=== PATIENT | female | born 1950 | race African-American/Black ===

== ENCOUNTER 2018-04-11 18:51 | Inpatient (IN) | payer OTHER, MEDICAID ==
[~2018-04-11] VITALS: Ht 162.6 cm; Wt 125.6 kg
[2018-04-11 18:55] VITALS: BP 145/82
--- NOTE | 2018-04-11 19:10 | NUR ---
PATIENT PRESENTS ER WITH C/O ABNORMAL LAB. PT WAS BIBA FROM [facility]. PT ABNORMAL LABS ARE CO2 41. PT IS A/O X 4. PT LUNG SOUNDS CLEAR BILATERAL. PT HAS SOME EXPIRATORY WHEEZING BY FORCE. PT HAS HX OF COPD, CHF, HTN, DM. PTHAS EDEMA BILATERAL +4. SKIN INTACT; PATIENT STATES PAIN OF 5/10 AT THIS TIME; VSS; PATIENT POSITIONED FOR COMFORT; HOB ELEVATED; BEDRAILS UP X2; BED DOWN. ER MD MADE AWARE OF PT STATUS.
--- NOTE | 2018-04-11 19:25 | NUR ---
LAB AT BEDSIDE
--- NOTE | 2018-04-11 19:37 | NUR ---
X-Ray at bedside.
[2018-04-11 19:40] LABS: BASOPHILS # (AUTO) 0.1 K/uL (0.00-0.22); BASOPHILS % (AUTO) 1.8 % (0.0-2.0); EOSINOPHILS # (AUTO) 0.4 K/uL (0-0.4); EOSINOPHILS % (AUTO) 6.9 % (0.0-4.0); HEMATOCRIT 25.4 % (36-48); HEMOGLOBIN 7.6 g/dL (12.0-16.0); LYMPHOCYTES # (AUTO) 0.8 K/uL (2.5-16.5); LYMPHOCYTES % (AUTO) 14.8 % (20.5-51.1); MEAN CORPUSCULAR HEMOGLOBIN 23 pg (27-31); MEAN CORPUSCULAR HGB CONC 30 g/dL (33-37); MEAN CORPUSCULAR VOLUME 77.2 fL (80-94); MONOCYTES # (AUTO) 0.6 K/uL (0.8-1.0); MONOCYTES % (AUTO) 10.6 % (1.7-9.3); NEUTROPHILS # (AUTO) 3.7 K/uL (1.8-7.7); NEUTROPHILS % (AUTO) 65.9 % (42.2-75.2); PLATELET COUNT (AUTO) 197 K/uL (140-450); RED BLOOD CELL COUNT(AUTO) 3.29 MIL/uL (4.20-5.40); RED CELL DISTRIBUTION WIDTH 18.9 % (11.6-13.7); WHITE BLOOD COUNT (AUTO) 5.5 K/uL (4.8-10.8)
[2018-04-11 19:56] LABS: ALBUMIN 3.2 g/dL (3.4-5.0); ANION GAP 0.2 (8-16); CREATININE 2.2 mg/dL (0.6-1.3); POTASSIUM 4.9 mmol/L (3.5-5.1); TOTAL BILIRUBIN 0.3 mg/dL (0.0-1.0)
[2018-04-11 19:59] LABS: PROTHROMBIN TIME 10.9 secs (10.8-13.4)
--- NOTE | 2018-04-11 20:00 | NUR ---
STRAIGHT CATH WAS DONE. PT TOLERATED WELL. U/A SPECIMEN WAS COLLECTED. SENT TO LAB.
[2018-04-11 20:04] LABS: CARBON DIOXIDE 41.7 mmol/L (21-32)
--- NOTE | 2018-04-11 20:10 | NUR ---
Dr. Gómez evaluating patient at bedside.
[2018-04-11] MEDS ORDERED: TRAM50TA1 PO (20:11)
[2018-04-11] MEDS ORDERED: MELA5TAB6 PO (20:11)
[2018-04-11] MEDS ORDERED: VITD1000 PO (20:11)
[2018-04-11] MEDS ORDERED: ROC.25 PO (20:11)
[2018-04-11] MEDS ORDERED: LACT1CAP92 PO (20:11)
[2018-04-11] MEDS ORDERED: MAGN400T55 PO (20:11)
[2018-04-11] MEDS ORDERED: CARV12.5 PO (20:11)
[2018-04-11] MEDS ORDERED: ASPI-1718 PO (20:11)
[2018-04-11] MEDS ORDERED: FURO-570 PO (20:11)
[2018-04-11] MEDS ORDERED: ALLO100T21 PO (20:11)
[2018-04-11] MEDS ORDERED: FERR325E14 PO (20:11)
[2018-04-11] MEDS ORDERED: [UNRECOGNIZED DRUG - CODE] PO (20:11)
[2018-04-11] MEDS ORDERED: SENN-72 PO (20:11)
[2018-04-11] MEDS ORDERED: ASCO500T45 PO (20:11)
[2018-04-11] MEDS ORDERED: DOCU-299 PO (20:11)
[2018-04-11] MEDS ORDERED: CRAN425C8 PO (20:11)
[2018-04-11] MEDS ORDERED: LANTUS SUBQ (20:11)
[2018-04-11] MEDS ORDERED: LIP80 PO (20:11)
[2018-04-11] MEDS ORDERED: KAY15 PO (20:13)
[2018-04-11] MEDS ORDERED: ALBUTEROL SULFATE/IPRATROPIU 3 ML SOL IH ONE (20:15)
--- NOTE | 2018-04-11 20:34 | NUR ---
Respiratory Therapist at bedside for respiratory intervention.
[2018-04-11] MEDS ORDERED: ACETAMINOPHEN 325 MG TAB PO PRN (20:40)
[2018-04-11] MEDS ORDERED: DOCUSATE SODIUM 100 MG GELCAP PO PRN (20:40)
[2018-04-11] MEDS ORDERED: NACL 0.9% 1,000 ML IV SCH (20:40)
[2018-04-11] MEDS ORDERED: MORPHINE SULFATE 2 MG/ML SYR IVP PRN (20:40)
[2018-04-11] MEDS ORDERED: ONDANSETRON 4 MG/2 ML VIAL IM/IVP PRN (20:40)
[2018-04-11 20:47] LABS: BILIRUBIN,URINE NEGATIVE (NEGATIVE); BLOOD, URINE TRACE-I (NEGATIVE); COLOR,URINE YELLOW (YELLOW); LEUKOCYTE ESTERASE ,URINE 1+ (NEGATIVE); NITRITE, URINE NEGATIVE (NEGATIVE); PH,URINE 6.5 (5.0-9.0); UGLUCOSE NEGATIVE (NEGATIVE)
[2018-04-11 20:48] LABS: APPEARANCE,URINE HAZY (CLEAR)
[2018-04-11 20:50] LABS: RBC,URINE 0-5 (RARE) /HPF (0-5); WBC,URINE 20-60 /HPF (0-5)
[2018-04-11 20:58] LABS: BARBITURATE, URINE NEG. ng/ml (NEG <=200); BENZODIAZEPINE, URINE NEG. ng/mL (NEG <=200); CANNABINOID, URINE NEG. ng/mL (NEG <=50); COCAINE, URINE NEG. ng/mL (NEG <=300); OPIATE, URINE NEG. ng/mL (NEG <=2000); PHENCYCLIDINE SCREEN,URINE NEG. ng/mL (NEG <=25)
[2018-04-11 21:13] LABS: CHOL/HDL RATIO 1.8 (1-4.5); THYROID STIMULATING HORMONE 6.56 uIU/mL (0.34-3.74)
--- NOTE | 2018-04-11 21:15 | NUR ---
Pt report given to CARLY DALEY. Transfer of care at this time.PT VSS
--- NOTE | 2018-04-11 21:15 | NUR ---
Patient will be admitted to care of DR. JAIME. Admited to TELEMETRY. Will go to room 120A. Belongings list completed. Report to EDI CARROLL. PT VSS.
--- NOTE | 2018-04-11 21:25 | NUR ---
SPOKE TO SON ISABELL TO LET HIM KNOW THAT MOM IS TRANSPORTED TO THE FLOOR AND TOLERATED IT WELL. PER PT REQUEST. CONTACT INFO IS ISABELL [phone]
[2018-04-11 21:30] VITALS: BP 144/72
--- NOTE | 2018-04-11 21:50 | NUR ---
RECEIVED PT FROM CARLY PAYROLL ACCOUNTING SPECIALIST PT AAOX4 ON BED REST ON 02 2 LTS VIA NC, ON LABORED BREATHING, HL ON LEFT AC PATENT, EDEMA ON BLE 3+ SKIN IS INTACT PT IS ORIENTED TO THE FLOOR CALL LIGHT WITHIN REACH
[2018-04-11] MEDS ORDERED: PIPERACILLIN/TAZOBACTAM 2.25 GM VIAL IV ONE (22:03)
--- NOTE | 2018-04-11 23:00 | NUR ---
AL MEDIC ORDER GIVEN ANTIBIOTICS NOT DISTRES NOTED ON TELEMETRY PACED
--- NOTE | 2018-04-11 23:12 | NUR ---
PT ON TELEMETRY PACED
[2018-04-11] MEDS: ALBUTEROL SULFATE/IPRATROPIU 3 ML SOL IH PRN (23:28)
[2018-04-12] VITALS: BP 140/70
[2018-04-12] MEDS: methylPREDNISolone SS 40 MG/ML VIAL IVP SCH ×4 (00:08→21:00)
--- NOTE | 2018-04-12 02:00 | NUR ---
PT IS ASSISTED TO BSC VOIDING WELL
[2018-04-12 04:00] VITALS: BP 146/93
--- NOTE | 2018-04-12 04:00 | NUR ---
SPONGE BATH GIVEN LINEN CHANGED VOIDING WELL ON TELEMETRY PACED NOT DISTRESS NOTED
[2018-04-12] MEDS ORDERED: methylPREDNISolone SS 40 MG/ML VIAL IVP SCH (05:00)
[2018-04-12] MEDS ORDERED: PIPER/TAZO 3.375GM/D5W PREMIX 50 ML IV SCH (05:00)
[2018-04-12] MEDS: PIPER/TAZO 2.25GM/D5W PREMIX 50 ML IV SCH ×3 (05:31→18:00)
[2018-04-12] MEDS ORDERED: PIPERACILLIN/TAZOBACTAM 2.25 GM VIAL IV ONE (05:38)
[2018-04-12] MEDS: BLOOD GLUCOSE MONITORING 1 DEV DEV FS SCH ×4 (06:06→21:19)
--- NOTE | 2018-04-12 06:14 | NUR ---
BLOOD SUGAR TEST 144 NOT COVERAGE. NOT SOB NOTED AT THIS TIME
[2018-04-12] MEDS: FAMOTIDINE 20 MG TAB PO SCH (06:17)
--- NOTE | 2018-04-12 07:20 | NUR ---
RECEIVED PT REPORT FROM GRAPHIC USER INTERFACE DESIGNER NURSE. PT IS AWAKE AND ALERT. NO S/S OF ACUTE DISTRESS OR SOB. PT IS ON 2L O2 NC. SKIN INTACT. IV SITE NOTED ON LAC, 20 G, INFUSING NS 60 ML/HR. FALL PRECAUTIONS IN PLACE. CALL LIGHT WITHIN REACH. WILL CONT TO MONITOR PT.
[2018-04-12 07:26] LABS: HEMATOCRIT 27.9 % (36-48); HEMOGLOBIN 8.3 g/dL (12.0-16.0); MEAN CORPUSCULAR HEMOGLOBIN 23 pg (27-31); MEAN CORPUSCULAR HGB CONC 30 g/dL (33-37); MEAN CORPUSCULAR VOLUME 77.8 fL (80-94); PLATELET COUNT (AUTO) 210 K/uL (140-450); RED BLOOD CELL COUNT(AUTO) 3.59 MIL/uL (4.20-5.40); RED CELL DISTRIBUTION WIDTH 19.3 % (11.6-13.7); WHITE BLOOD COUNT (AUTO) 5.7 K/uL (4.8-10.8)
[2018-04-12 08:00] VITALS: BP 147/83
--- NOTE | 2018-04-12 08:07 | NUR ---
PATIENT HAS BEEN SCREENED AND CATEGORIZED HIGH NUTRITION RISK. PATIENT WILL BE SEEN WITHIN 1-2 DAYS OF ADMISSION. 04/12/18-04/13/[address]
[2018-04-12 08:11] LABS: ANION GAP 7.2 (8-16); CREATININE 2.1 mg/dL (0.6-1.3); POTASSIUM 5.2 mmol/L (3.5-5.1)
[2018-04-12 08:28] LABS: LYMPHOCYTES % (MANUAL) 10 % (20-46); MONOCYTES % (MANUAL) 2 % (5-12)
--- NOTE | 2018-04-12 08:30 | NUR ---
DR GREENE AT BEDSIDE REVIEWED PATIENT STATUS AND BIPAP ORDER BY DR ALCIDES PANTOJA ON 04/12/2018 @ [address] DR GREENE STATED TO "CHANGE BIPAP TO NOCS"
--- NOTE | 2018-04-12 08:34 | NUR ---
PT WAS SEEN BY DR NICHOLSON AND DR JEWELL
[2018-04-12] MEDS: INSULIN LANTUS 100 UNITS/ML 10 ML VIAL SUBQ SCH (09:00)
[2018-04-12] MEDS ORDERED: FUROSEMIDE 40 MG TAB PO SCH (09:00)
[2018-04-12] MEDS: FUROSEMIDE 40 MG/4 ML VIAL IVP SCH ×2 (09:00→17:00)
--- NOTE | 2018-04-12 09:42 | NUR ---
PT REFUSED KIDNEY US. TECH WILL TRY AGAIN AT A LATER TIME
--- NOTE | 2018-04-12 09:46 | NUR ---
PT IS REFUSING TO TAKE HER AM MEDS, AND HAVE HER BLOOD SUGAR CHECKED. WILL TRY AGAIN LATER. PT WANTS TO BE LEFT ALONE TO SLEEP AT THIS TIME
--- NOTE | 2018-04-12 10:20 | NUR ---
TRIED TALKING TO PT AGAIN REGARDING TAKING HER MORNING MEDS AND CHECKING HER BLOOD SUGAR, SHE REFUSED AGAIN., STATED "I DON'T WANT ANY OF THIS". PT'S BP WAS ELEVATED, PT IS AWARE THAT SHE NEEDS TO TAKE HER BP MEDICATIONS. SHE ALSO HAS LANTUS 35 UNITS, BUT REFUSED TO HAVE HER BLOOD SUGAR CHECKED. NOTIFIED.
--- NOTE | 2018-04-12 10:45 | NUR ---
PT IS AGITATED AND SEEMS CONFUSED. SHE PULLED OUT HER IV AND TOOK OFF HER TELEMETRY LEADS, AND IS REFUSING TO HAVE THEM PUT BACK ON. SHE IS ASKING RN FOR A SODA. PT KNOWS SHE IS DIABETIC. NOTIFIED.
[2018-04-12 12:00] VITALS: BP 163/74
--- NOTE | 2018-04-12 12:46 | NUR ---
04/12/18 RD INITIAL ASSESSMENT COMPLETED PLEASE REFER TO NUTRITION ASSESSMENT UNDER CARE ACTIVITY FOR ESTIMATED NUTRITIONAL NEEDS. 1. RECOMMEND 60 GM CCHO + RENAL DIET 2. RD TO PROVIDE RENAL AND DM EDUCATION ON FOLLOW UP VISIT 3. RD TO FOLLOW-UP 3-5 DAYS, MODERATE RISK KHAI BRANTLEY, RD
--- NOTE | 2018-04-12 13:29 | NUR ---
PT IS STILL REFUSING TO TAKE HER MEDICATIONS FROM THIS MORNING AND AFTERNOON, AND TO HAVE HER BLOOD SUGAR CHECKED. PT'S BP IS ELEVATED AT THIS TIME, 163/74. SHE IS REFUSING TO TAKE ANY OF HER BP MEDS AND OTHER MEDS. DIRECTOR BARRAGAN TALKED TO PATIENT, PT WAS AGGRESSIVE TOWARD DIRECTOR, AGAIN REFUSING TO TAKE ANY MEDS, OR TO CHECK BLOOD SUGAR. PT IS REFUSING TO START A NEW IV SITE AFTER MULTIPLE TIMES OF TALKING TO HER. PT TELLING STAFF TO "GET OUT". DIRECTOR SPOKE WITH PT'S SON ISABELL TO NOTIFY HIM OF THIS ISSUE. IS AWARE.
[2018-04-12] MEDS: FERROUS SULFATE 325 MG TABEC PO SCH (13:45)
[2018-04-12] MEDS: LACTOBACILLUS RHAMNOSUS GG 1 EACH CAP PO SCH (13:45)
[2018-04-12] MEDS: CARVEDILOL 12.5 MG TAB PO SCH ×2 (13:45→17:35)
[2018-04-12] MEDS: ASPIRIN 81 MG TAB.CHEW PO SCH (13:45)
[2018-04-12] MEDS: ALLOPURINOL 100 MG TAB PO SCH (13:46)
[2018-04-12] MEDS: CALCITRIOL 0.25 MCG CAPLF PO SCH (13:46)
[2018-04-12] MEDS: traMADol 50 MG TAB PO SCH ×2 (13:46→21:14)
[2018-04-12] MEDS: ASCORBIC ACID 500 MG TAB PO SCH (13:46)
--- NOTE | 2018-04-12 13:46 | NUR ---
PT AGREED TO TAKE HER MORNING PO MEDICATIONS.
--- NOTE | 2018-04-12 14:17 | NUR ---
Pharmacy Teacher Note: Per Moshe from [facility] , patient is on a 7 day bed hold and is one of their long-term patients. She stated patient's health care decision maker is her son Isai Fagan .
[2018-04-12] MEDS: ALBUTEROL SULFATE/IPRATROPIU 3 ML SOL IH PRN (15:24)
--- NOTE | 2018-04-12 15:54 | NUR ---
PT REFUSED KIDNEY US FOR THE SECOND TIME.
[2018-04-12 16:00] VITALS: BP 148/84
--- NOTE | 2018-04-12 16:30 | NUR ---
JUST TALKED TO PT AGAIN ABOUT PLACING A NEW IV, SHE SAID SHE MIGHT BE OK WITH HAVING IT PLACED "AFTER DINNER". SHE IS REFUSING TO HAVE A NEW IV PLACED AT THIS TIME.
--- NOTE | 2018-04-12 16:45 | NUR ---
PT REFUSING TO HAVE BLOOD SUGAR TESTED
--- NOTE | 2018-04-12 16:53 | NUR ---
HEMOCCULT STOOL SAMPLE COLLECTED AND TAKEN TO LAB.
--- NOTE | 2018-04-12 18:18 | NUR ---
PT REFUSING TO HAVE IV PLACED. WILL TRY AGAIN LATER.
--- NOTE | 2018-04-12 19:10 | NUR ---
PT ENDORSED TO PHOTOGRAPHIC PROCESSOR IN STABLE CONDITION
[2018-04-12] MEDS: SENNA 8.6 MG TAB PO SCH (21:14)
[2018-04-12] MEDS: ATORVASTATIN 80 MG TAB PO SCH (21:14)
[2018-04-12] MEDS: INSULIN LISPRO SLIDING SCALE 100 UNITS/ML VIAL SUBQ PRN (21:22)
--- NOTE | 2018-04-12 22:10 | NUR ---
PT WAS INFORMED THAT SHE IS GIVEN SEN[place]OT. SHE ASKED FOR COLACE. INFORMED DR. PANTOJA. DR. AQUINO.
--- NOTE | 2018-04-12 22:11 | NUR ---
PT REFUSED TO HAVE IV ON HER. NO SOLUMEDROL WAS GIVEN
--- NOTE | 2018-04-12 22:25 | NUR ---
PLACED PT IN BIPAP, AND AFTER ONE MINUTE SHE REQUEST TO TAKE IT OFF, SHE SAID THAT SHE CAN NOT SLEEP WITH THIS MASK ON HER FACE.TOLD ME TO TURN ALL THE LIGHTS AND TV FOR HER TO SLEEP.RN NOTIFIED
--- NOTE | 2018-04-12 22:26 | NUR ---
PT REFUSED RT PLACING A BIPAP FOR CONTINUOUS ONE TONIGHT DR. PANTOJA AWARE.
--- NOTE | 2018-04-13 | NUR ---
ZOSYN NON-ADMINISTERED. DUE TO NO IVF PLACEMENT. PT WAS EXPLAINED THE BENEFITS AND RISKS. SHE ACKNOWLEDGED. 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
[2018-04-13] MEDS: methylPREDNISolone SS 40 MG/ML VIAL IVP SCH ×3 (05:00→20:34)
--- NOTE | 2018-04-13 05:00 | NUR ---
ISATU NON-ADMINISTERED TO PT REFUSAL. DR PANTOJA AWARE
[2018-04-13] MEDS: PIPER/TAZO 2.25GM/D5W PREMIX 50 ML IV SCH ×5 (06:00→23:53)
[2018-04-13 06:13] LABS: BASOPHILS % (AUTO) 0.6 % (0.0-2.0); EOSINOPHILS # (AUTO) 0.2 K/uL (0-0.4); EOSINOPHILS % (AUTO) 2.4 % (0.0-4.0); HEMATOCRIT 24.8 % (36-48); HEMOGLOBIN 7.4 g/dL (12.0-16.0); LYMPHOCYTES # (AUTO) 1.5 K/uL (2.5-16.5); LYMPHOCYTES % (AUTO) 23.9 % (20.5-51.1); MEAN CORPUSCULAR HEMOGLOBIN 23 pg (27-31); MEAN CORPUSCULAR HGB CONC 30 g/dL (33-37); MEAN CORPUSCULAR VOLUME 77.4 fL (80-94); MONOCYTES # (AUTO) 0.8 K/uL (0.8-1.0); NEUTROPHILS # (AUTO) 3.9 K/uL (1.8-7.7); NEUTROPHILS % (AUTO) 61.1 % (42.2-75.2); PLATELET COUNT (AUTO) 188 K/uL (140-450); RED BLOOD CELL COUNT(AUTO) 3.21 MIL/uL (4.20-5.40); RED CELL DISTRIBUTION WIDTH 19.3 % (11.6-13.7); WHITE BLOOD COUNT (AUTO) 6.4 K/uL (4.8-10.8)
[2018-04-13 06:14] LABS: T4 (THYROXINE) 5.3 ug/dL (4.5-12.0)
[2018-04-13] MEDS: BLOOD GLUCOSE MONITORING 1 DEV DEV FS SCH ×4 (06:28→20:35)
--- NOTE | 2018-04-13 06:29 | NUR ---
PT REFUSED BLOOD GLUCOSE MONITORING, AND TO TAKEN VITAL SIGNS. DR. PANTOJA AWARE
[2018-04-13] MEDS: FAMOTIDINE 20 MG TAB PO SCH (06:34)
--- NOTE | 2018-04-13 06:34 | NUR ---
PT REFUSED HER PEPCID, INFORMED DR. INGRAM. REITERATED AGAIN TO THAT PT REFUSES HER IVF, ANTIBIOTIC MEDS VIA IV(ZOSYN), SOLUMEDROL AND NO AM. BLOOD GLUCOSE WAS STAKEN DUE TO REFUSAL. PT IS A NURSE. INFORMED DE. THAT PT HAS WHEEZES JOAQUIN DURING ACTIVITY LIKE GETTING UP IN BED TO GO TO BEDSIDE COMMODE, OR SCOOTING IN BED, BREATHING HARD.
[2018-04-13] MEDS: INSULIN LISPRO SLIDING SCALE 100 UNITS/ML VIAL SUBQ PRN ×4 (06:47→20:47)
--- NOTE | 2018-04-13 06:47 | NUR ---
AT 2111 GAVE HUMALOG 15 UNITS TO PT. PT ABLE TO TAKE SOME OF THE INSULIN, BUT NOT ENTIRELY ITS CONTENTS AT PT ASKED ME TO STOP. SO I STOPPED GIVING THE INSULIN. WILL ENDORSE TO NEXT SHIFT. AT 06 I DOCUMENTED 15 UNITS AT TOTAL GIVEN TO PT WAS 15 UNITS. OF LAST NIGHT.WILL ENDORSE TO NEXT SHIFT, NOT TO GIVE CLOSE TO TIME.
--- NOTE | 2018-04-13 06:51 | NUR ---
PT WAS HUNGRY ATE SOME 12 PCS OF MEKHI CRACKERS.GOOD APPETITE
--- NOTE | 2018-04-13 07:19 | NUR ---
PT WITH UNSTABLE BLOOD SUGAR LEVELS; DR. TONG AWARE. BREATHING HARD DURING SLIGHT ACTIVITY E.G. GOING TO BEDSIDE COMMODE. O2 SAT STILL AT 98%. ENDORSED TO NEXT NURSE
--- NOTE | 2018-04-13 07:20 | NUR ---
RECEIVED BEDSIDE REPORT FROM EDI GAYLE. PT SLEEPING, BUT EASILY AROUSABLE. NO SIGNS OF DISTRESS NOTED. NO REDNESS, SWELLING, OR INFLAMMATION NOTED ON IV SITE. CALL ZHAO WITHIN REACH. SAFETY MEASURES IN PLACE. PLAN OF CARE REVIEWED.
[2018-04-13 07:26] LABS: ANION GAP 6.2 (8-16); CREATININE 2.2 mg/dL (0.6-1.3); POTASSIUM 5.2 mmol/L (3.5-5.1)
[2018-04-13 07:28] LABS: MAGNESIUM 2.7 mg/dL (1.8-2.4); PHOSPHORUS 4.5 mg/dL (2.5-4.9)
[2018-04-13 08:00] VITALS: BP 138/74
[2018-04-13 08:22] LABS: FERRITIN 141 ng/mL (15-150); FOLIC ACID > 20.00 ng/mL (>3.0); TRANSFERRIN 226 mg/dL (200-370)
[2018-04-13] MEDS ORDERED: SODIUM POLYSTYRENE 15 GM/60 ML UDBTL PO SCH (09:00)
[2018-04-13] MEDS: ALBUTEROL SULFATE/IPRATROPIU 3 ML SOL IH PRN (09:03)
--- NOTE | 2018-04-13 09:14 | NUR ---
RECEIVED PATIENT ON 2L NC, PULSE OX SAT 100%. PRN TX ADMINISTERED DUE TO DIMINISHED BREATH SOUNDS WITH FAINT EXP WHEEZE. TOLERATED TX WELL, NO ADVERSE SIDE EFFECTS. NO RESPIRATORY DISTRESS NOTED AT THIS TIME. WILL CONTINUE TO MONITOR.
[2018-04-13] MEDS: INSULIN LANTUS 100 UNITS/ML 10 ML VIAL SUBQ SCH (09:43)
[2018-04-13] MEDS: CARVEDILOL 12.5 MG TAB PO SCH ×2 (09:44→17:57)
[2018-04-13] MEDS: FERROUS SULFATE 325 MG TABEC PO SCH (09:44)
[2018-04-13] MEDS: FUROSEMIDE 40 MG/4 ML VIAL IVP SCH ×2 (09:44→17:56)
[2018-04-13] MEDS: CALCITRIOL 0.25 MCG CAPLF PO SCH (09:45)
[2018-04-13] MEDS: LACTOBACILLUS RHAMNOSUS GG 1 EACH CAP PO SCH (09:45)
[2018-04-13] MEDS: ASPIRIN 81 MG TAB.CHEW PO SCH (09:45)
[2018-04-13] MEDS: ASCORBIC ACID 500 MG TAB PO SCH (09:45)
[2018-04-13] MEDS: traMADol 50 MG TAB PO SCH ×2 (09:45→20:34)
[2018-04-13] MEDS: ALLOPURINOL 100 MG TAB PO SCH (09:45)
--- NOTE | 2018-04-13 09:45 | NUR ---
ADMINISTERED SCHEDULED MEDICATIONS. PT TOLERATED WELL. NO OTHER NEEDS AT THIS TIME.
[2018-04-13] MEDS ORDERED: ALBUTEROL SULFATE/IPRATROPIU 3 ML SOL IH SCH (12:00)
--- NOTE | 2018-04-13 12:03 | NUR ---
ADMINISTERED SCHEDULED MEDICATIONS. PT TOLERATED WELL. NO OTHER NEEDS AT THIS TIME. BG 388, ADMINISTERED 15 UNITS OF INSULIN.
[2018-04-13] MEDS: ALBUTEROL SULFATE/IPRATROPIU 3 ML SOL IH SCH ×2 (12:45→19:05)
--- NOTE | 2018-04-13 12:57 | NUR ---
SCHEDULED BREATHING TREATMENT ADMINISTERED. TOLERATED TX WELL, NO ADVERSE SIDE EFFECTS. NO ACUTE RESPIRATORY DISTRESS NOTED AT THIS TIME. WILL CONTINUE TO MONITOR.
--- NOTE | 2018-04-13 15:30 | NUR ---
PT REPOSITIONED. NO OTHER NEEDS AT THIS TIME.
[2018-04-13 16:00] VITALS: BP 133/76
--- NOTE | 2018-04-13 17:57 | NUR ---
ADMINISTERED SCHEDULED MEDICATIONS. PT TOLERATED WELL. NO OTHER NEEDS AT THIS TIME.
--- NOTE | 2018-04-13 19:15 | NUR ---
ENDORSED PT TO RN MIKE FOR CONTINUITY OF CARE. PT STABLE, AWAKE, AND ALERT.
--- NOTE | 2018-04-13 19:16 | NUR ---
RECEIVED REPORT FROM DAY SHIFT NURSE KEYSHAWN LAMA RN AT BEDSIDE. PT RESTING IN BED, AOX4, ON 2L/NC WITH RIGHT HAND #22G. UNABLE TO AMBULATE WITHOUT ASSISTANCE- CHAIRFAST, SKIN INTACT. DISCUSSED PLAN OF CARE AND PT VERBALIZED UNDERSTANDING. NO S/S OF RESPIRATORY DISTRESS OR DISCOMFORT NOTED AT THIS TIME. BED IN LOWEST POSITION, BED BREAKS ON, BOTH SIDE RAILS UP AND FALL PRECAUTIONS IN PLACE. BEDSIDE TABLE AND CALL LIGHT ARE WITHIN REACH. WILL CONTINUE TO MONITOR.
[2018-04-13 20:00] VITALS: BP 158/77
--- NOTE | 2018-04-13 20:00 | NUR ---
VITAL SIGNS TAKEN AND TOLERATED WELL. BLOOD GLUCOSE 359- WILL ADMINISTER INSULIN COVERAGE. NO S/S OF RESPIRATORY DISTRESS OR DISCOMFORT NOTED AT THIS TIME. WILL CONTINUE TO MONITOR.
[2018-04-13] MEDS: ATORVASTATIN 80 MG TAB PO SCH (20:34)
[2018-04-13] MEDS: SENNA 8.6 MG TAB PO SCH (20:34)
--- NOTE | 2018-04-13 20:47 | NUR ---
SCHEDULED MEDICATION GIVEN, INSULIN COVERAGE GIVEN AND TOLERATED WELL. NO S/S OF RESPIRATORY DISTRESS OR DISCOMFORT NOTED AT THIS TIME. WILL CONTINUE TO MONITOR.
--- NOTE | 2018-04-13 21:30 | NUR ---
2109 PLACED PT ON BIPAP. 02/09 RR 14 FIO2 40%. PT WEARING LG FACE MASK. PT TOLERATES BIPAP AT THIS TIME
--- NOTE | 2018-04-13 23:00 | NUR ---
PT SLEEPING IN BED. NO S/S OF RESPIRATORY DISTRESS OR DISCOMFORT NOTED AT THIS TIME. WILL CONTINUE TO MONITOR.
[2018-04-14] VITALS: BP 130/104
--- NOTE | 2018-04-14 | NUR ---
VITAL SIGNS TAKEN AND TOLERATED WELL. SCHEDULED MEDICATION ZOSYN GIVEN AND TOLERATED WELL. NO S/S OF RESPIRATORY DISTRESS OR DISCOMFORT NOTED AT THIS TIME. WILL CONTINUE TO MONITOR.
[2018-04-14] MEDS: ALBUTEROL SULFATE/IPRATROPIU 3 ML SOL IH PRN (00:25)
--- NOTE | 2018-04-14 02:00 | NUR ---
PT CONTINUES TO SLEEP IN BED. NO S/S OF RESPIRATORY DISTRESS OR DISCOMFORT NOTED AT THIS TIME. WILL CONTINUE TO MONITOR.
--- NOTE | 2018-04-14 04:00 | NUR ---
PT SLEEPING IN BED. NO S/S OF RESPIRATORY DISTRESS OR DISCOMFORT NOTED AT THIS TIME. WILL CONTINUE TO MONITOR.
[2018-04-14] MEDS: PIPER/TAZO 2.25GM/D5W PREMIX 50 ML IV SCH ×3 (04:54→17:42)
[2018-04-14] MEDS: methylPREDNISolone SS 40 MG/ML VIAL IVP SCH (04:54)
--- NOTE | 2018-04-14 04:54 | NUR ---
SCHEDULED MEDICATION SOLU-MEDROL AND ZOSYN GIVEN AND TOLERATED WELL. NO S/S OF RESPIRATORY DISTRESS OR DISCOMFORT NOTED AT THIS TIME. WILL CONTINUE TO MONITOR.
--- NOTE | 2018-04-14 05:25 | NUR ---
0500 pt off bipap.pt wants to eat. placed pt on 2lnc
[2018-04-14] MEDS: BLOOD GLUCOSE MONITORING 1 DEV DEV FS SCH ×4 (05:45→21:13)
[2018-04-14] MEDS: INSULIN LISPRO SLIDING SCALE 100 UNITS/ML VIAL SUBQ PRN ×4 (05:49→21:18)
--- NOTE | 2018-04-14 05:49 | NUR ---
BLOOD GLUCOSE 238- 6 UNITS OF INSULIN COVERAGE GIVEN AND TOLERATED WELL. NO S/S OF RESPIRATORY DISTRESS OR DISCOMFORT NOTED AT THIS TIME. WILL CONTINUE TO MONITOR.
[2018-04-14 06:18] LABS: BASOPHILS % (AUTO) 0.2 % (0.0-2.0); EOSINOPHILS % (AUTO) 0.1 % (0.0-4.0); HEMATOCRIT 23.9 % (36-48); HEMOGLOBIN 7.4 g/dL (12.0-16.0); LYMPHOCYTES # (AUTO) 0.8 K/uL (2.5-16.5); LYMPHOCYTES % (AUTO) 14.5 % (20.5-51.1); MEAN CORPUSCULAR HEMOGLOBIN 24 pg (27-31); MEAN CORPUSCULAR HGB CONC 31 g/dL (33-37); MEAN CORPUSCULAR VOLUME 76.4 fL (80-94); MONOCYTES # (AUTO) 0.2 K/uL (0.8-1.0); MONOCYTES % (AUTO) 3.7 % (1.7-9.3); NEUTROPHILS # (AUTO) 4.7 K/uL (1.8-7.7); NEUTROPHILS % (AUTO) 81.5 % (42.2-75.2); PLATELET COUNT (AUTO) 181 K/uL (140-450); RED BLOOD CELL COUNT(AUTO) 3.13 MIL/uL (4.20-5.40); RED CELL DISTRIBUTION WIDTH 19.3 % (11.6-13.7); WHITE BLOOD COUNT (AUTO) 5.8 K/uL (4.8-10.8)
[2018-04-14] MEDS: FAMOTIDINE 20 MG TAB PO SCH (06:30)
--- NOTE | 2018-04-14 06:30 | NUR ---
SCHEDULED MEDICATION PEPCID GIVEN AND TOLERATED WELL. NO S/S OF RESPIRATORY DISTRESS OR DISCOMFORT NOTED AT THIS TIME. WILL CONTINUE TO MONITOR.
[2018-04-14 06:38] LABS: ANION GAP 4.1 (8-16); CARBON DIOXIDE 39.6 mmol/L (21-32); CREATININE 2.3 mg/dL (0.6-1.3); POTASSIUM 4.7 mmol/L (3.5-5.1)
[2018-04-14 06:46] LABS: MAGNESIUM 2.3 mg/dL (1.8-2.4); PHOSPHORUS 4.5 mg/dL (2.5-4.9)
--- NOTE | 2018-04-14 07:19 | NUR ---
ENDORSED PT CARE TO DAY SHIFT NURSE KEYSHAWN DOYLE FOR CONTINUITY OF CARE.
--- NOTE | 2018-04-14 07:20 | NUR ---
RECEIVED BEDSIDE REPORT FROM EDI MCKEON. PT SLEEPING BUT EASILY AROUSABLE. NO SIGNS OF DISTRESS NOTED. NO REDNESS, SWELLING, OR INFLAMMATION NOTED ON IV SITE. CALL ZHAO WITHIN REACH. SAFETY MEASURES IN PLACE. PLAN OF CARE REVIEWED.
[2018-04-14] MEDS: ALBUTEROL SULFATE/IPRATROPIU 3 ML SOL IH SCH ×3 (07:41→18:41)
--- NOTE | 2018-04-14 07:52 | NUR ---
RECEIVED PATIENT ON 2L NC, PULSE OX SAT 100%. CONTINUOUS PULSE OX ON AND FUNCTIONING. SCHEDULED BREATHING TREATMENT ADMINISTERED. TOLERATED TX WELL, NO ADVERSE SIDE EFFECTS. NO RESPIRATORY DISTRESS NOTED AT THIS TIME. WILL CONTINUE TO MONITOR.
[2018-04-14 08:00] VITALS: BP 151/80
[2018-04-14] MEDS: CARVEDILOL 12.5 MG TAB PO SCH ×2 (08:58→17:42)
[2018-04-14] MEDS: FUROSEMIDE 40 MG/4 ML VIAL IVP SCH ×2 (08:58→17:41)
[2018-04-14] MEDS: ALLOPURINOL 100 MG TAB PO SCH (08:58)
[2018-04-14] MEDS: ASPIRIN 81 MG TAB.CHEW PO SCH (08:58)
[2018-04-14] MEDS: FERROUS SULFATE 325 MG TABEC PO SCH (08:59)
[2018-04-14] MEDS: ASCORBIC ACID 500 MG TAB PO SCH (08:59)
[2018-04-14] MEDS: LACTOBACILLUS RHAMNOSUS GG 1 EACH CAP PO SCH (08:59)
[2018-04-14] MEDS: CALCITRIOL 0.25 MCG CAPLF PO SCH (08:59)
[2018-04-14] MEDS: INSULIN LANTUS 100 UNITS/ML 10 ML VIAL SUBQ SCH (09:02)
[2018-04-14] MEDS: traMADol 50 MG TAB PO SCH ×2 (09:05→21:10)
--- NOTE | 2018-04-14 09:18 | NUR ---
ADMINISTERED SCHEDULED MEDICATIONS. PT TOLERATED WELL. NO OTHER NEEDS AT THIS TIME.
[2018-04-14] MEDS ORDERED: NACL 0.45% 1,000 ML IV SCH (09:30)
--- NOTE | 2018-04-14 10:39 | NUR ---
PT HAD BM IN THE COMMODE. PT REPOSITIONED, LINENS CHANGED.
--- NOTE | 2018-04-14 12:30 | NUR ---
ADMINISTERED SCHEDULED MEDICATIONS. BG 411, PER DR. ANDRADE, ADMINISTER 15 UNITS OF HUMALOG. PT TOLERATED WELL. NO OTHER NEEDS AT THIS TIME.
--- NOTE | 2018-04-14 14:40 | NUR ---
PT ON THE BEDSIDE COMMODE, LINENS CHANGED.
--- NOTE | 2018-04-14 14:46 | NUR ---
SCHEDULED BREATHING TREATMENT ADMINISTERED. TOLERATED TX WELL. NO ADVERSE SIDE EFFECTS. PATIENT ON CONTINUOUS PULSE OX MONITOR. ALARMS ON AND FUNCTIONING. NO RESPIRATORY DISTRESS NOTED. WILL CONTINUE TO MONITOR.
[2018-04-14 16:00] VITALS: BP 151/80
--- NOTE | 2018-04-14 16:25 | NUR ---
SPOKE WITH DR ROBERTSON REGARDING PT'S BG 419. PER DR. ROBERTSON, ADMINISTER 15 UNITS OF HUMALOG.
--- NOTE | 2018-04-14 17:56 | NUR ---
ADMINISTERED SCHEDULED MEDICATIONS AND HUMALOG 15 UNITS FOR BG [address] ROBERTSON. PT TOLERATED WELL. NO OTHER NEEDS AT THIS TIME.
--- NOTE | 2018-04-14 19:24 | NUR ---
ENDORSED PT TO EDI EMMANUEL FOR CONTINUITY OF CARE. PT STABLE, AWAKE, AND ALERT.
--- NOTE | 2018-04-14 19:25 | NUR ---
RECEIVED REPORT FROM KEYSHAWN FERGUSON FOR CONTINUITY OF CARE, PT IN STABLE CONDITION
--- NOTE | 2018-04-14 20:00 | NUR ---
PT IN BED SITTING UP WITH ALL FALLS PRECAUTIONS IN PLACE. PT HAS R HAND 24G O N RIGHT WRIST RUNNING 1/2 NS AT 50MLS/HR. PT ASISTED TO BEDSIDE COMMODE AT THIS TIME. V/S FOLLOWS T 98.9 P 90 R 18 B/P 126/36 02 98 WITH 2 LITERS VIA N/C. PT FINGERSTICK IS 320. WILL PROVIDE COVERAGE.
--- NOTE | 2018-04-14 20:30 | NUR ---
BAR FROM LAB CALLED AND REPORTED THAT THE URINALYSIS WAS POSITIVE FOR ESBL OF URINE. DR. PANTOJA RESIDENT MD MADE AWARE, PT ALREADY ON ZOSYN NO NEW ORDERS NOTED.
[2018-04-14] MEDS: SENNA 8.6 MG TAB PO SCH (21:09)
[2018-04-14] MEDS: ATORVASTATIN 80 MG TAB PO SCH (21:09)
--- NOTE | 2018-04-14 21:30 | NUR ---
PT PLACE ON CONTACT PRECAUTIONS. PT GIVEN AL DUE MEDS INCLUDING ULTRAM. PT ASSISTED TO COMMODE AND BACK TO BED, WITH A GOWN CHANGE. RAINER RT AT BEDSIDE SETTING UP BIPAP MACHINE.
[2018-04-15] VITALS: BP 149/83
--- NOTE | 2018-04-15 00:30 | NUR ---
PT IN BED BIPAP ON NO S/S OF PAIN OR DISTRESS NOTED. PT CONTINUES ON FALLS AND CONTACT PRECAUTIONS.ZOSYN HUNG ORDERED. V/S FOLLOWS T 97.0 P 83 R 16 B/P 149/83 02 100% ON BIPAP.
[2018-04-15] MEDS: PIPER/TAZO 2.25GM/D5W PREMIX 50 ML IV SCH ×2 (00:35→06:37)
--- NOTE | 2018-04-15 02:04 | NUR ---
PT C/ O MILD GENERALIZED PAIN IN JOINTS GIVEN PO/PRN TYLENOL WILL CONTINUE TO MONITOR FOR EFFECT.
--- NOTE | 2018-04-15 03:00 | NUR ---
PT SAID THAT PAIN IS BETTER, BUT THAT SHE CANT SLEEP AND IS HAVING TROUBLE SLEEPING WITH BIPAP MACHINE. RT CALLED TO EVALUATE BIPAP MASK.
--- NOTE | 2018-04-15 03:45 | NUR ---
RT PLACED PT BACK ON 3 LITERS OF 02 VIA N/C, RT SAID THAT SHE WOULD BE BACK IN 1 HOUR TO REEVALUATE PT. PT ASSISTED TO COMMODE AND BACK. ALL FALLS PRECAUTIONS IN PLACE.
[2018-04-15] MEDS: FAMOTIDINE 20 MG TAB PO SCH (06:37)
[2018-04-15] MEDS: BLOOD GLUCOSE MONITORING 1 DEV DEV FS SCH ×4 (06:41→21:02)
--- NOTE | 2018-04-15 06:49 | NUR ---
ISATU MEANS ORDERED. F/S IS 58 PT GIVEN 2 JUICES1 APPLESAUCE AND CRACKERS. WILL ENDORSE TO NEXT SHIFT TO RECHACK F/S. NO S/S OF PAIN OR DISTRESS NOTED.
--- NOTE | 2018-04-15 07:20 | NUR ---
ENDORSED CARE TO KEYSHAWN FERGUSON RN DAYSHIFT NURSE, PT IN STABLE CONDITION.
[2018-04-15 07:21] LABS: BASOPHILS % (AUTO) 0.4 % (0.0-2.0); EOSINOPHILS # (AUTO) 0.2 K/uL (0-0.4); EOSINOPHILS % (AUTO) 2.5 % (0.0-4.0); HEMATOCRIT 26.2 % (36-48); LYMPHOCYTES # (AUTO) 2.2 K/uL (2.5-16.5); MEAN CORPUSCULAR HEMOGLOBIN 23 pg (27-31); MEAN CORPUSCULAR HGB CONC 30 g/dL (33-37); MEAN CORPUSCULAR VOLUME 76.7 fL (80-94); MONOCYTES # (AUTO) 0.9 K/uL (0.8-1.0); MONOCYTES % (AUTO) 9.4 % (1.7-9.3); NEUTROPHILS # (AUTO) 5.8 K/uL (1.8-7.7); NEUTROPHILS % (AUTO) 63.7 % (42.2-75.2); PLATELET COUNT (AUTO) 196 K/uL (140-450); RED BLOOD CELL COUNT(AUTO) 3.42 MIL/uL (4.20-5.40); RED CELL DISTRIBUTION WIDTH 18.9 % (11.6-13.7); WHITE BLOOD COUNT (AUTO) 9.1 K/uL (4.8-10.8)
--- NOTE | 2018-04-15 07:21 | NUR ---
RECEIVED BEDSIDE REPORT FROM EDI EMMANUEL. PT STABLE, AWAKE, AND ALERT. NO SIGNS OF DISTRESS NOTED. NO REDNESS SWELLING OR INFLAMMATION NOTED ON IV SITE. DENIES PAIN OR SOB. CALL ZHAO WITHIN REACH. SAFETY MEASURES IN PLACE. PLAN OF CARE REVIEWED.
[2018-04-15] MEDS: ALBUTEROL SULFATE/IPRATROPIU 3 ML SOL IH SCH ×3 (07:22→20:37)
[2018-04-15 07:33] LABS: CARBON DIOXIDE 39.7 mmol/L (21-32); CREATININE 2.1 mg/dL (0.6-1.3); POTASSIUM 3.7 mmol/L (3.5-5.1)
[2018-04-15 07:35] LABS: MAGNESIUM 2.1 mg/dL (1.8-2.4); PHOSPHORUS 3.7 mg/dL (2.5-4.9)
[2018-04-15 08:00] VITALS: BP 133/78
[2018-04-15] MEDS: CARVEDILOL 12.5 MG TAB PO SCH ×2 (08:59→16:57)
[2018-04-15] MEDS: CALCITRIOL 0.25 MCG CAPLF PO SCH (09:04)
[2018-04-15] MEDS: ASPIRIN 81 MG TAB.CHEW PO SCH (09:05)
[2018-04-15] MEDS: methylPREDNISolone SS 40 MG/ML VIAL IVP SCH (09:05)
[2018-04-15] MEDS: LACTOBACILLUS RHAMNOSUS GG 1 EACH CAP PO SCH (09:05)
[2018-04-15] MEDS: ALLOPURINOL 100 MG TAB PO SCH (09:06)
[2018-04-15] MEDS: FERROUS SULFATE 325 MG TABEC PO SCH (09:06)
[2018-04-15] MEDS: traMADol 50 MG TAB PO SCH ×2 (09:07→20:52)
[2018-04-15] MEDS: ASCORBIC ACID 500 MG TAB PO SCH (09:07)
[2018-04-15] MEDS: FUROSEMIDE 40 MG/4 ML VIAL IVP SCH ×2 (09:07→16:56)
[2018-04-15] MEDS: INSULIN LANTUS 100 UNITS/ML 10 ML VIAL SUBQ SCH (09:09)
--- NOTE | 2018-04-15 09:10 | NUR ---
ADMINISTERED SCHEDULED MEDICATIONS. PT TOLERATED WELL. NO OTHER NEEDS AT THIS TIME.
--- NOTE | 2018-04-15 11:15 | NUR ---
PT IN THE BEDSIDE COMMODE. LINENS CHANGED, PT REPOSITIONED AFTER.
[2018-04-15] MEDS ORDERED: MEROPENEM 500 MG in NACL 0.9% 50 ML IV SCH ×4 (13:00)
[2018-04-15] MEDS: INSULIN LISPRO SLIDING SCALE 100 UNITS/ML VIAL SUBQ PRN ×3 (13:11→21:04)
--- NOTE | 2018-04-15 13:23 | NUR ---
ADMINISTERED SCHEDULED MEDICATIONS. PT TOLERATED WELL. NO OTHER NEEDS AT THIS TIME.
--- NOTE | 2018-04-15 14:09 | NUR ---
PT HAVING PROCEDURE DONE AT THIS TIME UNABLE TO ADMINISTER BREATHING TX. WILL CHECK BACK AT A LATER TIME. PT NOT IN ANY DISTRESS OR SOB AT THIS TIME. WILL CONTINUE TO MONITOR.
[2018-04-15 16:00] VITALS: BP 161/87
--- NOTE | 2018-04-15 16:57 | NUR ---
ADMINISTERED SCHEDULED MEDICATIONS. PT TOLERATED WELL. NO OTHER NEEDS AT THIS TIME.
--- NOTE | 2018-04-15 19:20 | NUR ---
ENDORSED PATIENT TO SHIPPING ROOM HELPER NURSE FOR CONTINUITY OF CARE. PT STABLE, AWAKE, AND ALERT.
--- NOTE | 2018-04-15 19:21 | NUR ---
RECD. SITTING ON THE BSC. A/OX4, OBESE. ON 02 AT 2 LITERS VIA N/C. O2 SAT- 100%. RESPIRATION EVEN AND UNLABORED, IV OF NS AT TKO INFUSING, RIGHT HAND G24. SAFETY MEASURES ENFORCED. PLAN OF CARE FOR THE SHIFT DISCUSSED. VERBALIZED UNDERSTANDING. DENIES PAIN 0/10.
--- NOTE | 2018-04-15 19:45 | NUR ---
ASSISTED BACK TO BED BY STATION ATTENDANT, SAFETY MAINTAINED.
--- NOTE | 2018-04-15 20:00 | NUR ---
Patient's Plan of Care was discussed and reviewed with RESIDENTIAL NURSE: LEE. WILL CONTINUE WITH CURRENT PLAN OF CARE.
[2018-04-15] MEDS: ATORVASTATIN 80 MG TAB PO SCH (20:53)
[2018-04-15] MEDS: SENNA 8.6 MG TAB PO SCH (20:53)
--- NOTE | 2018-04-15 21:00 | NUR ---
DUE PO MEDICATIONS GIVEN. WARM BLANKETS GIVEN REQUESTED. TUCKED IN BED WITH BLANKET REQUESTED, READY TO SLEEP. BIPAP PUT ON BY RT.
--- NOTE | 2018-04-15 21:30 | NUR ---
WANTS HER BSC TO BE PLACED NEAR BIPAP, EXPLAINED IT IS BETTER IF THE BSC IS IN THE RIGHT SIDE OF HER BED, EASY FOR HER TO GO TO BSC AND BACK TO BED AGAIN.
--- NOTE | 2018-04-15 22:00 | NUR ---
HAD BM, ASSISTED BY TEACHER CCLC, CLEANED AND BACK TO BED AGAIN. REQUESTED FOR CRACKERS GIVEN BUT REMINDED TO EAT FIRST BEFORE BIPAP WILL BE PUT BACK BY RT.
--- NOTE | 2018-04-15 22:15 | NUR ---
CALL AGAIN REQUESTING FOR TOWEL TO BE PUT BETWEEN HER LEGS. REQUEST DONE.
[2018-04-16] VITALS: BP 155/83
--- NOTE | 2018-04-16 | NUR ---
ASSISTED OUT OF BED TO GO TO BSC. BACK TO BED AFTER VOIDING. SAFETY MAINTAINED.
[2018-04-16] MEDS: MEROPENEM 500 MG in NACL 0.9% 50 ML IV SCH ×2 (00:13→14:16)
[2018-04-16] MEDS ORDERED: MEROPENEM 500 MG in NACL 0.9% 50 ML IV SCH (01:00)
--- NOTE | 2018-04-16 03:00 | NUR ---
AGREED TO RT TO BE OFF BIPAP MACHINE.
[2018-04-16] MEDS: BLOOD GLUCOSE MONITORING 1 DEV DEV FS SCH ×4 (06:25→20:53)
[2018-04-16] MEDS: INSULIN LISPRO SLIDING SCALE 100 UNITS/ML VIAL SUBQ PRN ×5 (06:27→21:01)
--- NOTE | 2018-04-16 06:30 | NUR ---
ASSISTED OUT OF BED TO GO TO BSC TO VOID.
[2018-04-16] MEDS: FAMOTIDINE 20 MG TAB PO SCH (06:31)
--- NOTE | 2018-04-16 07:20 | NUR ---
CONDITION REMAIN STABLE. ENDORSED TO AM NURSE FOR CONTINUITY OF CARE.
--- NOTE | 2018-04-16 07:21 | NUR ---
RECEIVED REPORT FROM APPARATUS OPERATOR NURSE FOR CONTINUITY OF CARE. PT IN STABLE CONDITION. RESPIRATIONS EVEN AND UNLABORED. O2 2L VIA NC. IV INTACT AND PATENT. SAFETY MEASURES IN PLACE. BED IN LOW POSITION. CALL LIGHT AT BEDSIDE. WILL CONTINUE TO MONITOR.
[2018-04-16] MEDS: ALBUTEROL SULFATE/IPRATROPIU 3 ML SOL IH SCH ×3 (07:44→19:22)
[2018-04-16 08:00] VITALS: BP 167/91
--- NOTE | 2018-04-16 08:26 | NUR ---
PT ON BEDSIDE COMMODE AT THIS TIME. WILL CONTINUE TO MONITOR. LB 04/15/2018.
[2018-04-16] MEDS ORDERED: FERR325E14 PO ×2 (08:51→08:55)
[2018-04-16] MEDS ORDERED: ALBU3SOL83 IH ×2 (08:51)
[2018-04-16] MEDS ORDERED: MERO500P2 IV (08:52)
[2018-04-16] MEDS ORDERED: LACT1CAP92 PO (08:53)
--- NOTE | 2018-04-16 09:00 | NUR ---
GAVE ORDERED DUE MEDICATIONS AT THIS TIME. PT TOLERATED WELL. WILL CONTINUE TO MONITOR.
[2018-04-16] MEDS: INSULIN LANTUS 100 UNITS/ML 10 ML VIAL SUBQ SCH (10:18)
[2018-04-16] MEDS: ASCORBIC ACID 500 MG TAB PO SCH (10:23)
[2018-04-16] MEDS: ASPIRIN 81 MG TAB.CHEW PO SCH (10:23)
[2018-04-16] MEDS: LACTOBACILLUS RHAMNOSUS GG 1 EACH CAP PO SCH (10:23)
[2018-04-16] MEDS: ALLOPURINOL 100 MG TAB PO SCH (10:23)
[2018-04-16] MEDS: CARVEDILOL 12.5 MG TAB PO SCH ×2 (10:23→17:29)
[2018-04-16] MEDS: traMADol 50 MG TAB PO SCH ×2 (10:24→20:54)
[2018-04-16] MEDS: FUROSEMIDE 40 MG/4 ML VIAL IVP SCH (10:24)
[2018-04-16] MEDS: CALCITRIOL 0.25 MCG CAPLF PO SCH (10:24)
[2018-04-16] MEDS: FERROUS SULFATE 325 MG TABEC PO SCH (10:24)
[2018-04-16] MEDS: methylPREDNISolone SS 40 MG/ML VIAL IVP SCH (10:25)
--- NOTE | 2018-04-16 10:53 | NUR ---
ASSISTED PT TO BEDSIDE COMMODE. PT IN STABLE CONDITION. WILL CONTINUE TO MONITOR.
--- NOTE | 2018-04-16 12:37 | NUR ---
ASSISTED PT TO BEDSIDE COMMODE. PT IN STABLE CONDITION. WILL CONTINUE TO MONITOR.
[2018-04-16 16:00] VITALS: BP 170/93
--- NOTE | 2018-04-16 16:49 | NUR ---
BLOOD SUGAR 459, GAVE [address] CARRILLO. WILL CONTINUE TO MONITOR.
--- NOTE | 2018-04-16 18:25 | NUR ---
BLOOD SUGAR 433. DR CARRILLO NOTIFIED. WILL CONTINUE TO MONITOR.
--- NOTE | 2018-04-16 18:56 | NUR ---
PT IN STABLE CONDITION. WILL ENDORSE TO LEAD SECTION SUPERVISOR NURSE FOR CONTINUITY OF CARE.
--- NOTE | 2018-04-16 19:00 | NUR ---
GAVE [address] CARRILLO. WILL CONTINUE TO MONITOR.
[2018-04-16] MEDS ORDERED: MAGNESIUM HYDROXIDE 2400 MG/30 ML UDC PO SCH (19:30)
--- NOTE | 2018-04-16 19:35 | NUR ---
RECD. SITTING ON BSC, HAVING A BM. A/OX4, OBESE. IV OF NS AT TKO INFUSING RIGHT HAND G24. ON AT 2 LITERS VIA N/C, 02 SAT - 96%. STILL WITH RALES ON BILATERAL LUNG AUSCULTATION. NO SOB NOTED. SAFETY MEASURES ENFORCED. PLAN OF CARE FOR THE SHIFT DISCUSSED. VERBALIZED UNDERSTANDING. DENIES PAIN 0/10.
--- NOTE | 2018-04-16 19:40 | NUR ---
INFORMED LAUNDRY FOLDER NURSE ANGELO COOMBS MD ORDERED [facility], PHARMACY DOES NOT CARRY THIS MEDICATION AN ALTERNATIVE IS LASIX IVP. PHARMACY TRIED TO CALL DR. EAGLE AND HIS OFFICE WAS CLOSED. FREQUENCY AND TIME WILL NEED TO BE SPECIFIED ON MEDICATION ALSO.
--- NOTE | 2018-04-16 20:00 | NUR ---
Patient's Plan of Care was discussed and reviewed with REAL ESTATE ADMINISTRATOR: ANTONY HOWARD
--- NOTE | 2018-04-16 20:30 | NUR ---
ASSISTED OUT OF BED TO GO TO THE BSC TO HAVE BM. BACK TO BED AFTER PERICARE ASSISTANCE DONE. SAFETY MAINTAINED.
[2018-04-16] MEDS: ATORVASTATIN 80 MG TAB PO SCH (20:54)
--- NOTE | 2018-04-16 20:55 | NUR ---
DUE PO MEDICATIONS GIVEN, ATE 100% OF SNACK FOR THE NIGHT.
[2018-04-16] MEDS: SENNA 8.6 MG TAB PO SCH (21:00)
[2018-04-16] MEDS ORDERED: BUMETANIDE 1 MG/4 ML VIAL IV SCH (21:00)
--- NOTE | 2018-04-16 21:23 | NUR ---
pt refused using bipap, she will call if she gets shorth of breath, pt on 2l nc sat 98%, bs are clear bilat.
--- NOTE | 2018-04-16 23:00 | NUR ---
ASSISTED OUT OF BED TO GO TO BSC TO VOID. BACK TO BED WITH ASSISTANCE, SAFETY MAINTAINED.
[2018-04-17] VITALS: BP 150/75
--- NOTE | 2018-04-17 00:30 | NUR ---
SLEEPING IN BED COMFORTABLY.
[2018-04-17] MEDS: MEROPENEM 500 MG in NACL 0.9% 50 ML IV SCH ×2 (00:32→14:34)
--- NOTE | 2018-04-17 04:30 | NUR ---
ASSISTED TO BSC TO VOID, BACK TO BED WITH ASSISTANCE, SAFETY MAINTAINED.
--- NOTE | 2018-04-17 06:00 | NUR ---
COMPLAINT OF HER IV SEEMS INFILTRATED, CHARGE NURSE LIEN CHECKED, STILL GOOD. RESTING COMFORTABLY IN BED, WANTS TO GO BACK TO SLEEP.
[2018-04-17] MEDS: FAMOTIDINE 20 MG TAB PO SCH (06:14)
[2018-04-17] MEDS: BLOOD GLUCOSE MONITORING 1 DEV DEV FS SCH (06:21)
[2018-04-17] MEDS: INSULIN LISPRO SLIDING SCALE 100 UNITS/ML VIAL SUBQ PRN (06:23)
[2018-04-17 06:39] LABS: PHOSPHORUS 3.5 mg/dL (2.5-4.9)
[2018-04-17 06:40] LABS: BASOPHILS % (AUTO) 0.3 % (0.0-2.0); EOSINOPHILS # (AUTO) 0.1 K/uL (0-0.4); EOSINOPHILS % (AUTO) 1.1 % (0.0-4.0); HEMATOCRIT 27.3 % (36-48); HEMOGLOBIN 8.3 g/dL (12.0-16.0); LYMPHOCYTES % (AUTO) 21.1 % (20.5-51.1); MEAN CORPUSCULAR HEMOGLOBIN 23 pg (27-31); MEAN CORPUSCULAR HGB CONC 31 g/dL (33-37); MEAN CORPUSCULAR VOLUME 76.3 fL (80-94); MONOCYTES % (AUTO) 10.6 % (1.7-9.3); NEUTROPHILS # (AUTO) 6.2 K/uL (1.8-7.7); NEUTROPHILS % (AUTO) 66.9 % (42.2-75.2); PLATELET COUNT (AUTO) 193 K/uL (140-450); RED BLOOD CELL COUNT(AUTO) 3.57 MIL/uL (4.20-5.40); RED CELL DISTRIBUTION WIDTH 19.5 % (11.6-13.7); WHITE BLOOD COUNT (AUTO) 9.3 K/uL (4.8-10.8)
--- NOTE | 2018-04-17 07:00 | NUR ---
CONDITION REMAIN STABLE. WILL REMAIN ENDORSED TO AM NURSE FOR CONTINUITY OF CARE.
--- NOTE | 2018-04-17 07:01 | NUR ---
RECEIVED BEDSIDE REPORT FROM RN NEUROLOGY NURSE. PATIENT AAOX4. PATIENT ON NC, NO DISTRESS NOTED. PATIENT AMBULATES WITH ASSIST. PATIENT IS CONTINENT. IV ON R HAND 24 G SALINE LOCK. IV CLEAN DRY AND INTACT. PATIENT ON MED SURGE AND CONTACT ISO FOR E COLI ESBL. SIGNS POSTED. EDEMA ON LOWER EXTREMITIES. BED IN LOW POSITION, CALL LIGHT WITHIN REACH. WILL CONTINUE TO MONITOR.
[2018-04-17 07:47] LABS: ANION GAP 10.2 (8-16); POTASSIUM 4.2 mmol/L (3.5-5.1)
[2018-04-17 08:00] VITALS: BP 165/86
[2018-04-17] MEDS: ALBUTEROL SULFATE/IPRATROPIU 3 ML SOL IH SCH ×2 (08:41→14:42)
[2018-04-17] MEDS ORDERED: INSULIN LANTUS 100 UNITS/ML 10 ML VIAL SUBQ SCH (09:00)
--- NOTE | 2018-04-17 09:00 | NUR ---
ADMINISTERED SCHEDULED MEDS TO PATIENT. PATIENT TOLERATED WELL. WILL CONTINUE TO MONITOR.
[2018-04-17] MEDS: LACTOBACILLUS RHAMNOSUS GG 1 EACH CAP PO SCH (09:29)
[2018-04-17] MEDS: traMADol 50 MG TAB PO SCH (09:29)
[2018-04-17] MEDS: CARVEDILOL 12.5 MG TAB PO SCH (09:29)
[2018-04-17] MEDS: CALCITRIOL 0.25 MCG CAPLF PO SCH (09:29)
[2018-04-17] MEDS: ASPIRIN 81 MG TAB.CHEW PO SCH (09:30)
[2018-04-17] MEDS: ASCORBIC ACID 500 MG TAB PO SCH (09:30)
[2018-04-17] MEDS: methylPREDNISolone SS 40 MG/ML VIAL IVP SCH (09:30)
[2018-04-17] MEDS: ALLOPURINOL 100 MG TAB PO SCH (09:30)
[2018-04-17] MEDS: FERROUS SULFATE 325 MG TABEC PO SCH (09:30)
--- NOTE | 2018-04-17 11:15 | NUR ---
CM NOTE PER PATIENT'S SON ISABELL RG PH# [phone], HE WANTS PATIENT TO GO BACK TO [facility] [place] WHEN DISCHARGED AND HE SAID HE WILL BE FINANCIALLY RESPONSIBLE FOR [facility] MED TRANSPORT THAT PATIENT WILL USE GOING BACK TO [facility] [place] ($116 PER [facility] OF [facility]). FAXED CLINICAL PACKET INCLUDING MICROS TO [facility] [place]. PER CINDY OF [facility] [place], PATIENT CAN GO TO [address] AFTER 3PM TIME TODAY. PER [facility] OF [facility] PH# [phone], THE PATIENT WILL BE PICKED UP AT 4PM TIME TODAY GOING TO [facility] [place] AND I GAVE HER THE PATIENT'S SON'S NUMBER (WHO WILL BE FINANCIALLY RESPONSIBLE FOR THE TRANSPORT) AND SHE IS MADE AWARE OF PATIENT'S HEIGHT, WEIGHT AND ISOLATION. Addendum: 04/17/18 at 1226 by Amie Booth CM CHARGE NURSE TARA AQUINO.
--- NOTE | 2018-04-17 11:30 | NUR ---
ASSISTED PATIENT TO BEDSIDE COMMODE. PATIENT REMAINED SAFE, NO INJURY OCCURRED. WILL CONTINUE TO MONITOR. CALL LIGHT WITHIN REACH.
--- NOTE | 2018-04-17 12:00 | NUR ---
ASSISTED PATIENT TO BEDSIDE COMMODE. PATIENT REQUESTED TO HAVE TRAY IN FRONT OF HER. PATIENT TOLERATING LUNCH WELL. WILL CONTINUE TO MONITOR.
[2018-04-17] MEDS ORDERED: BUMETANIDE 1 MG/4 ML VIAL IV SCH (13:00)
--- NOTE | 2018-04-17 14:00 | NUR ---
PATIENT SLEEPING. NO DISTRESS NOTED, ON 2 L O2 NC. WILL CONTINUE TO MONITOR.
[2018-04-17] MEDS ORDERED: MAGNESIUM HYDROXIDE 2400 MG/30 ML UDC PO SCH (15:00)
--- NOTE | 2018-04-17 16:00 | NUR ---
EDUCATED PATIENT ON DISCHARGE INSTRUCTIONS. EDUCATED PATIENT TO FOLLOW UP WITH PCP WITHIN 7 DAYS. EDUCATED PATIENT TO RETURN TO ER WHEN HAVING FEVER, SOB, ETC IMMEDIATELY. PROVIDED PATIENT WITH PACKET AND DISCHARGE TEACHINGS AND MED SIDE EFFECTS. ANSWERED ALL QUESTIONS AND CONCERNS. REMOVED WRIST BAND AND KEPT IV IN PLACE FOR CONTINUATION OF ABX AT [facility] [place].
== END 2018-04-17 16:10 | DRG 177 ==
LOC: MED 18:51 → MTU 20:40
PROVIDERS: ADMIT General Practice; ATTEND General Practice
PROC: 5A09357 Assistance with Respiratory Ventilation, Less than 24 Consecutive Hours, Continuous Positive Airway Pressure (ICD-10-PCS; principal; 2018-04-15)
DX: J69.0 Pneumonitis due to inhalation of food and vomit (principal); J96.02 Acute respiratory failure with hypercapnia; N17.0 Acute kidney failure with tubular necrosis; I50.43 Acute on chronic combined systolic (congestive) and diastolic (congestive) heart failure; J44.1 Chronic obstructive pulmonary disease with (acute) exacerbation; E44.1 Mild protein-calorie malnutrition; Z68.42 Body mass index [BMI] 45.0-49.9, adult; N39.0 Urinary tract infection, site not specified; I42.9 Cardiomyopathy, unspecified; E87.2 Acidosis; I13.0 Hypertensive heart and chronic kidney disease with heart failure and stage 1 through stage 4 chronic kidney disease, or unspecified chronic kidney disease; J45.901 Unspecified asthma with (acute) exacerbation; G47.33 Obstructive sleep apnea (adult) (pediatric); B96.20 Unspecified Escherichia coli [E. coli] as the cause of diseases classified elsewhere; Z90.710 Acquired absence of both cervix and uterus; Z88.5 Allergy status to narcotic agent; Z87.891 Personal history of nicotine dependence; Z86.73 Personal history of transient ischemic attack (TIA), and cerebral infarction without residual deficits; Z16.12 Extended spectrum beta lactamase (ESBL) resistance; N18.3 Chronic kidney disease, stage 3 (moderate); E11.22 Type 2 diabetes mellitus with diabetic chronic kidney disease; E66.01 Morbid (severe) obesity due to excess calories; M10.9 Gout, unspecified; Y95 Nosocomial condition; Z88.8 Allergy status to other drugs, medicaments and biological substances; Z91.018 Allergy to other foods; D64.9 Anemia, unspecified; Z95.0 Presence of cardiac pacemaker; E83.41 Hypermagnesemia; E11.21 Type 2 diabetes mellitus with diabetic nephropathy; E87.5 Hyperkalemia
CPT/HCPCS: 36415; 36600; 71045; 76770; 80048; 80053; 80305; 81001; 82150; 82272; 82607; 82728; 82746; 82803; 82948; 83036; 83540; 83605; 83690; 83735; 83880; 84100; 84436; 84443; 84484; 85025; 85045; 85610; 85730; 87040; 87070; 87081; 87086; 87186; 87205; 87804; 89220; 93005; 94640; 94660; 99285; J1815; J1940; J2185; J2543; J2920; J3490; J7030; J7060; J7620; Q0092

== ENCOUNTER 2018-05-29 10:31 | Inpatient (IN) | payer OTHER, MEDICAID ==
[~2018-05-29] VITALS: Ht 162.6 cm; Wt 99.8 kg
[~2018-05-29 10:31] MED LIST: ALBU3SOL83 IH; ALLO100T21 PO; ASCO500T45 PO; ASPI-1718 PO; CARV12.5 PO; CRAN425C8 PO; DOCU-299 PO; FERR325E14 PO; FURO-570 PO; LACT1CAP92 PO; LANTUS SUBQ; LIP80 PO; MELA5TAB6 PO; MERO500P2 IV; ROC.25 PO; SENN-72 PO; TRAM50TA1 PO; VITD1000 PO; [UNRECOGNIZED DRUG - CODE] PO
[2018-05-29 10:34] VITALS: BP 138/86
--- NOTE | 2018-05-29 10:34 | NUR ---
PT BIBA BLS TO BED 10
--- NOTE | 2018-05-29 10:40 | NUR ---
BIBA FOR LEFT LEG PAIN AND SWELLING. PER EMS, UNABLE TO STAND ON LEG.DENIES N/V/D; SKIN IS PINK/WARM/DRY; AAOX4 WITH EVEN AND STEADY GAIT; LUNGS CLEAR BL; HR EVEN AND REGULAR; PT DENIES ANY FEVER, CP, SOB, OR COUGH AT THIS TIME; PATIENT STATES PAIN OF 8/10 AT THIS TIME; VSS; PATIENT POSITIONED FOR COMFORT; HOB ELEVATED; BEDRAILS UP X2; BED DOWN. ER MD MADE AWARE OF PT STATUS.
[2018-05-29] MEDS ORDERED: MORPHINE SULFATE 4 MG/ML SYR IVP ONE (11:10)
[2018-05-29] MEDS ORDERED: SODIUM PHOSPHATE 118 ML ENEM RC ONE (11:10)
[2018-05-29] MEDS ORDERED: LACTULOSE 20 GM/30 ML UDC PO ONE (11:10)
[2018-05-29] MEDS ORDERED: MORPHINE SULFATE 4 MG/ML SYR IM ONE (11:30)
[2018-05-29 12:01] LABS: BASOPHILS # (AUTO) 0.1 K/uL (0.00-0.22); BASOPHILS % (AUTO) 1.1 % (0.0-2.0); EOSINOPHILS # (AUTO) 0.3 K/uL (0-0.4); EOSINOPHILS % (AUTO) 5.7 % (0.0-4.0); HEMATOCRIT 26.8 % (36-48); HEMOGLOBIN 8.2 g/dL (12.0-16.0); LYMPHOCYTES # (AUTO) 0.9 K/uL (2.5-16.5); LYMPHOCYTES % (AUTO) 18.5 % (20.5-51.1); MEAN CORPUSCULAR HEMOGLOBIN 23 pg (27-31); MEAN CORPUSCULAR HGB CONC 31 g/dL (33-37); MEAN CORPUSCULAR VOLUME 75.5 fL (80-94); MONOCYTES # (AUTO) 0.5 K/uL (0.8-1.0); MONOCYTES % (AUTO) 10.5 % (1.7-9.3); NEUTROPHILS % (AUTO) 64.2 % (42.2-75.2); PLATELET COUNT (AUTO) 177 K/uL (140-450); RED BLOOD CELL COUNT(AUTO) 3.54 MIL/uL (4.20-5.40); RED CELL DISTRIBUTION WIDTH 20.9 % (11.6-13.7); WHITE BLOOD COUNT (AUTO) 4.6 K/uL (4.8-10.8)
[2018-05-29 12:12] LABS: PROTHROMBIN TIME 11.3 secs (10.8-13.4)
--- NOTE | 2018-05-29 12:15 | NUR ---
OFFERED PT BEDPAN, PT ONLY VOIDS 5 CC URINE, WILL TRY TO COLLECT URINE AGAIN.
[2018-05-29 12:16] LABS: ALBUMIN 3.1 g/dL (3.4-5.0); ANION GAP 10.5 (8-16); CARBON DIOXIDE 32.4 mmol/L (21-32); CREATININE 2.1 mg/dL (0.6-1.3); MAGNESIUM 2.1 mg/dL (1.8-2.4); POTASSIUM 4.9 mmol/L (3.5-5.1); TOTAL BILIRUBIN 0.4 mg/dL (0.0-1.0)
[2018-05-29 12:21] LABS: CREATINE KINASE MB 3.9 ng/mL (0-3.6)
[2018-05-29 12:28] LABS: URIC ACID 5.5 mg/dL (2.6-7.2)
--- NOTE | 2018-05-29 13:00 | NUR ---
OFFERED PT FOOD.
[2018-05-29] MEDS ORDERED: FUROSEMIDE 20 MG/2 ML VIAL IVP ONE (13:20)
[2018-05-29] MEDS ORDERED: ZOLPIDEM 5 MG TAB PO PRN (14:00)
[2018-05-29] MEDS ORDERED: DOCUSATE SODIUM 100 MG GELCAP PO PRN (14:00)
[2018-05-29] MEDS ORDERED: LORazepam 2 MG/ML VIAL IM/IVP PRN (14:00)
[2018-05-29] MEDS ORDERED: ACETAMINOPHEN 325 MG TAB PO PRN (14:00)
[2018-05-29] MEDS ORDERED: ONDANSETRON 4 MG/2 ML VIAL IM/IVP PRN (14:00)
--- NOTE | 2018-05-29 14:00 | NUR ---
REPORT FROM MARISELA DALEY, TRANSFER OF CARE AT THIS TIME.
[2018-05-29] MEDS ORDERED: ALBUTEROL SULFATE/IPRATROPIU 3 ML SOL IH PRN (14:05)
[2018-05-29] MEDS ORDERED: DEXTROSE 50% 50 ML SYR IVP PRN (14:15)
--- NOTE | 2018-05-29 14:40 | NUR ---
PATIENT CURRENTLY IN ED#[address] ANITHA ZARATE MD REQUEST TO R/O PE
--- NOTE | 2018-05-29 14:53 | NUR ---
PATIENT CURRENTLY BEING TRANSFERRED TO [facility] TO DRAW ABG POST TRANSFER
--- NOTE | 2018-05-29 15:00 | NUR ---
PT TAKEN TO TELE FLOOR BY EDI DIAZ AND RT DANIELS
--- NOTE | 2018-05-29 15:05 | NUR ---
Patient will be admitted to care of DR JAIME. Admited to [facility]. Will go to [facility]. Belongings list completed. Report to DOMENICA DALEY.
--- NOTE | 2018-05-29 15:06 | NUR ---
PATIENT ARRIVE VIA GURNEY FROM ER. REPORT RECEIVED FROM VOLUNTEER SERVICES DIRECTOR EMILY AT BEDSIDE FOR CONTINUITY OF CARE. PATIENT AOX4, MARTINIQUAIS SPEAKING, RESPIRATIONS EVEN AND UNLABORED ON O2 2L VIA NC. NO SIGN OF SOB OR DISTRESS NOTED. PATIENT ABLE TO VERBALIZE NEEDS. PATIENT DENIES PAIN. PLAN OF CARE VERBALIZED TO PATIENT, SHE VERBALIZED UNDERSTANDING. ORIENTED PATIENT TO ROOM, BATHROOM, CALL LIGHT, AND TV. MRSA SCREENING DONE. SAFETY PRECAUTION IN PLACE, BED IN LOWEST POSITION, CALL LIGHT WITHIN REACH, WILL CONTINUE TO MONITOR PATIENT.
[2018-05-29 15:08] LABS: CHOL/HDL RATIO 2.1 (1-4.5); MAGNESIUM 2.2 mg/dL (1.8-2.4); PHOSPHORUS 4.6 mg/dL (2.5-4.9); THYROID STIMULATING HORMONE 5.93 uIU/mL (0.34-3.74)
[2018-05-29 15:20] VITALS: BP 156/83
--- NOTE | 2018-05-29 15:33 | NUR ---
CALLED DR ANITHA ZARATE [id number] REVIEWED ABG SAMPLE REPORT
[2018-05-29] MEDS: NACL 0.9% 1,000 ML IV SCH (15:41)
[2018-05-29 16:00] VITALS: BP 150/84
--- NOTE | 2018-05-29 16:10 | NUR ---
PATIENT REQUESTED USE OF BEDSIDE COMMODE. REFUSED THOMAS AT THIS MOMENT. BSC GIVEN. PATIENT VOIDED. PATIENT CHANGED AND MOVED BACK TO BED. PATIENT TOLERATED IT WELL. SAFETY PRECAUTIONS IN PLACE, CALL LIGHT WITHIN REACH, WILL CONTINUE TO MONITOR PATIENT.
--- NOTE | 2018-05-29 16:30 | NUR ---
INFORMED PATIENT ABOUT THOMAS INSERTION. SHE AT FIRST AGREED. HOWEVER, REFUSED STATING THAT "I'M TIRED" BECAUSE OF ALL THE TESTS THAT HAD BEEN DONE TO HER. SHE DID AGREE TO TRY INSERTION AT NIGHT TIME BEFORE BED.
[2018-05-29] MEDS: FERROUS SULFATE 325 MG TABEC PO SCH (17:12)
[2018-05-29] MEDS: BLOOD GLUCOSE MONITORING 1 DEV DEV FS SCH ×2 (17:12→22:19)
--- NOTE | 2018-05-29 17:12 | NUR ---
ORDERED MEDICATION GIVEN. BLOOD SUGAR 333, COVERAGE GIVEN. PATIENT TOLERATED IT WELL. NO DISTRESS OR SOB NOTED AT THIS TIME. PATIENT DENIES PAIN. GETTING ULTRASOUND. SAFETY PRECAUTIONS IN PLACE, CALL LIGHT WITHIN REACH, WILL CONTINUE TO MONITOR PATIENT.
--- NOTE | 2018-05-29 17:22 | NUR ---
RESPIRATORY THERAPIST WITH IS IN TO TEACH PATIENT. TECH IN TO DO US OF BILATERAL LEGS. WILL WAIT FOR RESULTS.
[2018-05-29] MEDS: INSULIN LISPRO SLIDING SCALE 100 UNITS/ML VIAL SUBQ PRN ×2 (17:26→22:20)
--- NOTE | 2018-05-29 18:10 | NUR ---
MRSA AND URINE SAMPLE DROPPED OFF AT LAB. PATIENT STILL GETTING ULTRASOUND. WAITING FOR RESULTS.
--- NOTE | 2018-05-29 18:45 | NUR ---
SON ISABELL IN TO SEE THE PATIENT. VERBALIZED PLAN OF CARE TO HIM. HE VERBALIZED UNDERSTANDING. PATIENT CURRENTLY FINISHING UP DINNER. NO COMPLAINTS AT THIS TIME. SAFETY PRECAUTIONS IN PLACE, CALL LIGHT WITHIN REACH, WILL CONTINUE TO MONITOR PATIENT.
--- NOTE | 2018-05-29 19:33 | NUR ---
REPORT GIVEN TO INTERNATIONAL CONTROLLER NURSE WAYNE AT BEDSIDE FOR CONTINUITY OF CARE. PATIENT IN STABLE CONDITION.
--- NOTE | 2018-05-29 19:34 | NUR ---
RECEIVED PT IN STABLE CONDITION FROM AM NURSE. AWAKE,ALERT AND ORIENTED X4. ON TELE MONITOR. WITH NO C/O ANY PAIN NOTED . ON O22L/NC . NO SOB AT THIS TIME. BSC IN PLACED. WITH IVF INFUSING WELL ON THE RT HAND #22. PLAN OF CARE DISCUSSED AND VERBALIZED UNDERSTANDING. CALL LIGHT PLACED WITHIN REACH. BED ON LOW POSITION. FREQUENT ROUNDS NEEDED. WILL CONTINUE TO MONITOR.
[2018-05-29 19:50] VITALS: BP 147/84
--- NOTE | 2018-05-29 20:30 | NUR ---
ASSISTED UP TO THE BSC WITH 2 PEOPLE ASSISTANCE. VOIDED AND HAD A VERY SMALL FORMED BROWN STOOL.
[2018-05-29 20:42] LABS: APPEARANCE,URINE CLEAR (CLEAR); BILIRUBIN,URINE NEGATIVE (NEGATIVE); BLOOD, URINE NEGATIVE (NEGATIVE); COLOR,URINE YELLOW (YELLOW); LEUKOCYTE ESTERASE ,URINE NEGATIVE (NEGATIVE); NITRITE, URINE NEGATIVE (NEGATIVE); UGLUCOSE NEGATIVE (NEGATIVE)
[2018-05-29] MEDS: methylPREDNISolone SS 40 MG/ML VIAL IVP SCH (20:48)
[2018-05-29 20:50] LABS: BARBITURATE, URINE NEG. ng/ml (NEG <=200); BENZODIAZEPINE, URINE NEG. ng/mL (NEG <=200); CANNABINOID, URINE NEG. ng/mL (NEG <=50); COCAINE, URINE NEG. ng/mL (NEG <=300); OPIATE, URINE NEG. ng/mL (NEG <=2000); PHENCYCLIDINE SCREEN,URINE NEG. ng/mL (NEG <=25)
[2018-05-29] MEDS: CARVEDILOL 12.5 MG TAB PO SCH (20:50)
[2018-05-29] MEDS: DOCUSATE SODIUM 100 MG GELCAP PO SCH (20:50)
[2018-05-29] MEDS: FUROSEMIDE 40 MG TAB PO SCH (20:51)
[2018-05-29] MEDS: SENNA 8.6 MG TAB PO SCH (20:56)
--- NOTE | 2018-05-29 21:00 | NUR ---
IV ON RT HAND g#22 STARTED ANEW IV ACCESS PULLED OUT. EDI BARNARDSLATER APPRENTICE STARTED A NEW IV ACCESS SAME HAND G#22.
[2018-05-29] MEDS: ATORVASTATIN 80 MG TAB PO SCH (21:11)
[2018-05-29] MEDS ORDERED: guaiFENesin DM 200/20 MG-10 ML 10 ML UDC PO PRN (21:15)
--- NOTE | 2018-05-29 21:30 | NUR ---
THOMAS CATHETER FR#16 INSERTED ORDERED. WITH CLEAR YELLOW URINE OUTPUT .PT TOLERATED WELL.
--- NOTE | 2018-05-29 22:30 | NUR ---
BLOOD SUGAR 234. INSULIN COVERAGE GIVEN SUBQ. OFFERED SOME CRACKERS ANS JUICE BUT REFUSED.
--- NOTE | 2018-05-29 23:10 | NUR ---
THE NEW IV CAME OUT AGAIN. ASKED FAIRY TO RESTART A NEW ONE BUT SHE REFUSED.
[2018-05-30] VITALS: BP 140/72
--- NOTE | 2018-05-30 00:09 | NUR ---
CALLED DR. RAMÍREZ,RESIDENT MD MADE HIM AWARE THAT PT REFUSED TO HAVE ANOTHER IV AT THIS TIME. HE SAID OK .
--- NOTE | 2018-05-30 02:00 | NUR ---
PT HAS BEEN UP TO BSC. NO BM NOTED ,ONLY SMALL SMEAR . ENCOURAGED TO HAVE SOME PRUNE JUICE , BUT SHE SAID SHE DOESN'T WANT TO DRINK AT THIS TIME. SHE WILL DRINK IT LATER IN THE MORNING.
--- NOTE | 2018-05-30 03:00 | NUR ---
PT TOOK THE PRUNE JUICE. WILL MONITOR BM.
[2018-05-30 04:15] VITALS: BP 135/67
[2018-05-30] MEDS: methylPREDNISolone SS 40 MG/ML VIAL IVP SCH ×3 (05:00→20:13)
--- NOTE | 2018-05-30 05:30 | NUR ---
PT SITTING ON THE BSC. SHE SAID SHE WANTS TO SIT THERE FOR A WHILE. CALL LIGHT PLACED WITHIN REACH.
[2018-05-30] MEDS: BLOOD GLUCOSE MONITORING 1 DEV DEV FS SCH ×4 (06:00→20:13)
[2018-05-30] MEDS: INSULIN LISPRO SLIDING SCALE 100 UNITS/ML VIAL SUBQ PRN ×2 (06:02→20:30)
--- NOTE | 2018-05-30 06:02 | NUR ---
BLOOD SUGAR THIS AM 228. INSULIN COVERAGE GIVEN SUBQ
[2018-05-30 06:33] LABS: BASOPHILS # (AUTO) 0.1 K/uL (0.00-0.22); BASOPHILS % (AUTO) 1.1 % (0.0-2.0); EOSINOPHILS # (AUTO) 0.2 K/uL (0-0.4); HEMATOCRIT 27.8 % (36-48); HEMOGLOBIN 8.6 g/dL (12.0-16.0); LYMPHOCYTES # (AUTO) 0.8 K/uL (2.5-16.5); LYMPHOCYTES % (AUTO) 15.3 % (20.5-51.1); MEAN CORPUSCULAR HEMOGLOBIN 23 pg (27-31); MEAN CORPUSCULAR HGB CONC 31 g/dL (33-37); MEAN CORPUSCULAR VOLUME 75.4 fL (80-94); MONOCYTES # (AUTO) 0.4 K/uL (0.8-1.0); MONOCYTES % (AUTO) 7.2 % (1.7-9.3); NEUTROPHILS # (AUTO) 3.9 K/uL (1.8-7.7); NEUTROPHILS % (AUTO) 73.4 % (42.2-75.2); PLATELET COUNT (AUTO) 203 K/uL (140-450); RED BLOOD CELL COUNT(AUTO) 3.69 MIL/uL (4.20-5.40); RED CELL DISTRIBUTION WIDTH 20.2 % (11.6-13.7); WHITE BLOOD COUNT (AUTO) 5.3 K/uL (4.8-10.8)
[2018-05-30 06:43] LABS: ANION GAP 10.5 (8-16); CARBON DIOXIDE 33.1 mmol/L (21-32); CREATININE 1.9 mg/dL (0.6-1.3); POTASSIUM 4.6 mmol/L (3.5-5.1)
--- NOTE | 2018-05-30 06:59 | NUR ---
PT STILL SITTING ON THE BSC. NO SOB NOTED. WITH O22L/NC.
--- NOTE | 2018-05-30 07:35 | NUR ---
ENDORSED PT IN STABLE CONDITION TO AM NURSE.
--- NOTE | 2018-05-30 07:36 | NUR ---
RECEIVED REPORT FROM BOTTLE PACKER NURSE HANANE FOR CONTINUITY OF CARE. PT IN STABLE CONDITION. RESPIRATIONS EVEN AND UNLABORED. NO IV AT THIS TIME PT REFUSED. SAFETY MEASURES IN PLACE. CALL LIGHT AT BEDSIDE. BED IN LOW POSITION. BED ALARM ON. WILL CONTINUE TO MONITOR. Addendum: 05/30/18 at 0815 by Skye Navarro RN RECEIVED REPORT FROM BOTTLE PACKER NURSE PAULETTE
[2018-05-30 08:00] VITALS: BP 138/72
[2018-05-30] MEDS: ALBUTEROL SULFATE/IPRATROPIU 3 ML SOL IH SCH ×3 (08:00→19:12)
--- NOTE | 2018-05-30 08:08 | NUR ---
PATIENT HAS BEEN SCREENED AND CATEGORIZED MODERATE NUTRITION RISK. PATIENT WILL BE SEEN WITHIN 3-5 DAYS OF ADMISSION. 06/02/18KHAI BR[address]
[2018-05-30] MEDS: DOCUSATE SODIUM 100 MG GELCAP PO SCH ×3 (09:00→20:21)
[2018-05-30] MEDS ORDERED: SODIUM PHOSPHATE 118 ML ENEM RC SCH ×2 (09:00→23:00)
--- NOTE | 2018-05-30 09:00 | NUR ---
DOCUSATE SODIUM 250MG NOT ADMINISTERED. GEL CAPS UNABLE TO CRUSH. WILL INFORM RESIDENT.
--- NOTE | 2018-05-30 09:15 | NUR ---
ASSISTED PT ONTO BEDSIDE COMMODE FOR LARGE FORMED BM, PT REQUESTED ASSIST TO CHAIR, THEN PT REQUEST ASSIST TO BED. PT TOLERATED WELL. CALL LIGHT AT BEDSIDE. BED IN LOW POSITION. BED ALARM ON. WILL CONTINUE TO MONITOR.
[2018-05-30] MEDS: CALCITRIOL 0.25 MCG CAPLF PO SCH (11:05)
[2018-05-30] MEDS: FUROSEMIDE 40 MG TAB PO SCH ×2 (11:06→20:22)
[2018-05-30] MEDS: FERROUS SULFATE 325 MG TABEC PO SCH ×2 (11:06→17:29)
[2018-05-30] MEDS: CHOLECALCIFEROL 1,000 IU TAB PO SCH (11:06)
[2018-05-30] MEDS: ALLOPURINOL 100 MG TAB PO SCH (11:06)
[2018-05-30] MEDS: ASCORBIC ACID 500 MG TAB PO SCH (11:06)
[2018-05-30] MEDS: CARVEDILOL 12.5 MG TAB PO SCH ×2 (11:07→20:22)
[2018-05-30] MEDS: ASPIRIN 81 MG TAB.CHEW PO SCH (11:07)
--- NOTE | 2018-05-30 11:24 | NUR ---
SECURITY CALLED TO ROOM. PT SITTING WITH FEET DANGLING ON OFF SIDE OF BED, AT RISK OF FALLING. PT REFUSING TO SIT BACK IN BED. PT WANTING TO GO TO THE DINNING FACILITY. PT WAS INFORMED THAT WE DO NOT HAVE A DINNING FACILITY FOR PATIENTS. DR. ZARATE CALLED TO EXPLAIN TO PATIENT ABOUT DINNING FACILITY AND TO ALLOW NURSES TO ASSIST HER BACK INTO BED. PT AGREED, NURSES HELPED PT INTO BED. PT TOLERATED WELL. CALL LIGHT AT BEDSIDE. BED ALARM ON. BED IN LOW POSITION. WILL CONTINUE TO MONITOR.
[2018-05-30 12:00] VITALS: BP 142/80
[2018-05-30] MEDS: INSULIN LANTUS 100 UNITS/ML 10 ML VIAL SUBQ SCH (12:20)
--- NOTE | 2018-05-30 13:30 | NUR ---
PT LYING IN BED IN STABLE CONDITION. RESPIRATIONS EVEN AND UNLABORED. CALL LIGHT AT BEDSIDE. BED IN LOW POSITION. BED ALARM ON. WILL CONTINUE TO MONITOR.
--- NOTE | 2018-05-30 13:36 | NUR ---
DECREASED FIO2 TO 2L
[2018-05-30] MEDS: NACL 0.9% 1,000 ML IV SCH (13:56)
--- NOTE | 2018-05-30 15:40 | NUR ---
PT LYING IN BED SLEEPING. RESPIRATIONS EVEN AND UNLABORED. CALL LIGHT AT BEDSIDE. BED IN LOW POSITION. BED ALARM ON. WILL CONTINUE TO MONITOR.
[2018-05-30 16:00] VITALS: BP 136/82
--- NOTE | 2018-05-30 16:44 | NUR ---
Enrobing Machine Feeder Note: Per Philly from [facility] , patient is on a 7 day bed hold and is one of their long-term patients. She stated patient's health care decision maker is her son Isai Fagan .
--- NOTE | 2018-05-30 17:30 | NUR ---
ASSISTED PT TO CHAIR FOR MEAL CONSUMPTION. PT TOLERATED WELL. WILL CONTINUE TO MONITOR.
--- NOTE | 2018-05-30 19:20 | NUR ---
GAVE REPORT TO TESTS SUPERINTENDENT NURSE AT BEDSIDE FOR CONTINUITY OF CARE. PT IN STABLE CONDITION.
--- NOTE | 2018-05-30 19:30 | NUR ---
RECEIVED BEDSIDE REPORT FROM ALBERT DALEY. PT IS AAO X 4. ON NC 2L O2. CURRENTLY RECEIVING BREATHING TREATMENT. C/C LEFT LEG PAIN. DENIES ANY SOB OR PAIN AT THIS TIME. SKIN INTACT. YARITZA LEG EDEMA. LEGS ARE BEKAH BANDAGE FOR COMPRESSION. NO IV ACCESS. PT REFUSED PER NURSE. IS AWARE. PT HAS THOMAS CATH DRAINING CLEAR YELLOW URINE. ZAIN OF CARE DISCUSSED WITH PT. CALL LIGHT WITHIN REACH. WILL CONTINUE TO MONITOR.
[2018-05-30 20:00] VITALS: BP 131/65
[2018-05-30] MEDS: SENNA 8.6 MG TAB PO SCH (20:21)
--- NOTE | 2018-05-30 20:21 | NUR ---
DUE MEDICATIONS WERE GIVEN. SOLU MEDROL UNABLE TO GIVE. PT REFUSED IV. PT TOLERATED WELL. WILL CONTINUE TO MONITOR.
[2018-05-30] MEDS: ATORVASTATIN 80 MG TAB PO SCH (20:22)
--- NOTE | 2018-05-30 21:04 | NUR ---
PT HAVING US ARTERIAL AT BEDSIDE. BEKAH BANDAGE REMOVED FOR PROCEDURE. WILL CONTINUE TO MONITOR. CALL LIGHT WITHIN REACH.
--- NOTE | 2018-05-30 21:10 | NUR ---
POPPY ATTEMPTED TO DO US ARTERIAL UNABLE TO COMPLETE PROCEDURE. PT REFUSED UNABLE TO TOLERATE BEING FLAT IN BED. MADE AWARE. NO CHANGE IN ORDERS. WILL CONTINUE TO MONITOR.
--- NOTE | 2018-05-30 22:52 | NUR ---
PT RESTING COMFORTABLY IN BED. PT STATES FEELS CONSTIPATED. SPOKE WITH DR RAMÍREZ. NEW ORDER FOR SUPPOSITORY.
[2018-05-30] MEDS ORDERED: BISACODYL 10 MG SUPP RC SCH (23:00)
--- NOTE | 2018-05-30 23:32 | NUR ---
pt requested suppository. but is now refusing the med. wants it given tomorrow morning. pt refused vital signs. attempted b/p 3x unable to get reading. will attempt at a later time.
[2018-05-31 01:21] VITALS: BP 141/69
--- NOTE | 2018-05-31 01:22 | NUR ---
B/P 141/69 HEART RATE 79. VITAL SIGNS STABLE. ALL NEEDS MET AT THIS TIME. WILL CONTINUE TO MONITOR.
[2018-05-31 04:00] VITALS: BP 147/87
[2018-05-31] MEDS ORDERED: HYDROcodone/APAP 5/325 MG 1 TAB TAB PO PRN (04:05)
[2018-05-31] MEDS: methylPREDNISolone SS 40 MG/ML VIAL IVP SCH ×3 (04:18→20:59)
--- NOTE | 2018-05-31 04:25 | NUR ---
PT COMPLAINED OF LEG PAIN. NO ORDERS FOR PAIN MEDS. DR RAMÍREZ CAME TO SEE PT AND NEW ORDER FOR NORCO. PULLED MED OUT NOW PT STATES DOESN'T WANT NORCO BECAUSE SHES NOT EXPERIENCING ANY LEG PAIN RIGHT NOW. WILL RETURN MED. CALL LIGHT WITHIN REACH.
[2018-05-31] MEDS: INSULIN LISPRO SLIDING SCALE 100 UNITS/ML VIAL SUBQ PRN ×4 (06:04→21:07)
[2018-05-31] MEDS: BLOOD GLUCOSE MONITORING 1 DEV DEV FS SCH ×4 (06:08→21:07)
--- NOTE | 2018-05-31 06:09 | NUR ---
EKG STRIP SHOWED A PAUSE IN PACED RHYTHM. HAPPEN JUST ONCE DURING SHIFT. STRIP SHOWED TO DR RAMÍREZ. NO CHANGE IN ORDERS. BLOOD SUGAR 211 4U OF HUMALOG GIVEN PT TOLERATED WELL. CALL LIGHT WITHIN REACH.
[2018-05-31] MEDS: ALBUTEROL SULFATE/IPRATROPIU 3 ML SOL IH SCH ×3 (06:45→19:46)
[2018-05-31 07:02] LABS: BASOPHILS # (AUTO) 0.1 K/uL (0.00-0.22); BASOPHILS % (AUTO) 1.4 % (0.0-2.0); EOSINOPHILS # (AUTO) 0.3 K/uL (0-0.4); EOSINOPHILS % (AUTO) 5.3 % (0.0-4.0); HEMATOCRIT 27.4 % (36-48); HEMOGLOBIN 8.4 g/dL (12.0-16.0); LYMPHOCYTES # (AUTO) 1.3 K/uL (2.5-16.5); LYMPHOCYTES % (AUTO) 23.7 % (20.5-51.1); MEAN CORPUSCULAR HEMOGLOBIN 23 pg (27-31); MEAN CORPUSCULAR HGB CONC 31 g/dL (33-37); MEAN CORPUSCULAR VOLUME 75.1 fL (80-94); MONOCYTES # (AUTO) 0.7 K/uL (0.8-1.0); MONOCYTES % (AUTO) 11.5 % (1.7-9.3); NEUTROPHILS # (AUTO) 3.3 K/uL (1.8-7.7); NEUTROPHILS % (AUTO) 58.1 % (42.2-75.2); PLATELET COUNT (AUTO) 213 K/uL (140-450); RED BLOOD CELL COUNT(AUTO) 3.65 MIL/uL (4.20-5.40); RED CELL DISTRIBUTION WIDTH 20.4 % (11.6-13.7); WHITE BLOOD COUNT (AUTO) 5.7 K/uL (4.8-10.8)
[2018-05-31 07:15] LABS: MAGNESIUM 2.1 mg/dL (1.8-2.4); PHOSPHORUS 3.7 mg/dL (2.5-4.9)
[2018-05-31 07:16] LABS: POTASSIUM 3.9 mmol/L (3.5-5.1)
[2018-05-31 07:17] LABS: CARBON DIOXIDE 31.9 mmol/L (21-32)
[2018-05-31 07:19] LABS: CREATININE 1.9 mg/dL (0.6-1.3)
--- NOTE | 2018-05-31 07:23 | NUR ---
GAVE BEDSIDE REPORT TO AMADOR DALEY. PT ENDORSED IN STABLE CONDITION.
--- NOTE | 2018-05-31 07:25 | NUR ---
RECEIVED HAND OFF REPORT FROM GOLD LEAF LABORER NURSE. PT IS STABLE AND SLEEPING. ALL SAFETY MEASURES IN PLACE. WILL CONTINUE TO MONITOR
[2018-05-31 08:00] VITALS: BP 143/84
--- NOTE | 2018-05-31 08:15 | NUR ---
PT sitting up in bed, aaox4, eating breakfast. No signs of distress. Call light within reach.
--- NOTE | 2018-05-31 08:40 | NUR ---
Dr Morgan arrived at bedside to assess pt. Pt asleep, opens eyes when name is called & nods/shakes head to questions, but goes back to sleep. SaO2 = 96% via pulse ox with O2 @ 2Lpm via n/c; respirations deep & labored. Per Dr. Morgan, he will input orders to draw ABGs.
[2018-05-31] MEDS: DOCUSATE SODIUM 250 MG GELCAP PO SCH ×2 (08:44→20:56)
[2018-05-31] MEDS: FUROSEMIDE 40 MG TAB PO SCH ×2 (08:44→20:56)
[2018-05-31] MEDS: CALCITRIOL 0.25 MCG CAPLF PO SCH (08:44)
[2018-05-31] MEDS: ASPIRIN 81 MG TAB.CHEW PO SCH (08:45)
[2018-05-31] MEDS: CHOLECALCIFEROL 1,000 IU TAB PO SCH (08:45)
[2018-05-31] MEDS: GABAPENTIN 300 MG CAP PO SCH ×2 (08:45→20:56)
[2018-05-31] MEDS: CARVEDILOL 12.5 MG TAB PO SCH ×2 (08:46→20:58)
[2018-05-31] MEDS: ASCORBIC ACID 500 MG TAB PO SCH (08:46)
[2018-05-31] MEDS: FERROUS SULFATE 325 MG TABEC PO SCH ×2 (08:46→16:48)
[2018-05-31] MEDS: ALLOPURINOL 100 MG TAB PO SCH (08:46)
[2018-05-31] MEDS: INSULIN LANTUS 100 UNITS/ML 10 ML VIAL SUBQ SCH (08:49)
--- NOTE | 2018-05-31 09:15 | NUR ---
Pt in bed, wide awake, verbally responsive. Respirations even & nonlabored. RT at bedside to draw ABGs.
--- NOTE | 2018-05-31 09:17 | NUR ---
several attempts to obtain abg were made unable to get at this time pt is awake and alert o2 sat on 2lnc 100% rn gustabo at bedside
[2018-05-31 11:09] LABS: TRANSFERRIN 262 mg/dL (200-370)
--- NOTE | 2018-05-31 12:30 | NUR ---
PT REFUSED AFTERNOON VITALS. PT REQUESTED TO BE HELPED TO COMMODE. TALKED TO PT AND THEY SAID SHE COULD BE PLACED ON COMMODE.
--- NOTE | 2018-05-31 12:45 | NUR ---
GAVE PT 6 UNITS HUMALOG FOR BS OF 288. PT EATING LUNCH ON COMMODE. CLEANED AND CHANGED PTS BED LINENS
--- NOTE | 2018-05-31 13:05 | NUR ---
ASSESSED PT THOMAS CATH REMOVED 6 UNITS OLD SALINE AND REPLACED WITH 10 ML OF SALINE. WILL CONTINUE TO ASSESS FOR LEAKING. ASSISTED CLIENT BACK TO BED
--- NOTE | 2018-05-31 13:07 | NUR ---
PT REFUSED BREATHING TX AND ABG
--- NOTE | 2018-05-31 14:45 | NUR ---
FREQUENT ROUNDING ON PT. PT ASLEEP IN BED WITH 2L NASAL CANULA. IV FLUID RUNNING AT 40ML/HR 0.9% NORMAL SALINE. IV IS PATENT.
[2018-05-31] MEDS: NACL 0.9% 1,000 ML IV SCH (14:52)
--- NOTE | 2018-05-31 15:06 | NUR ---
FAMILY MEMBER AT PT BEDSIDE
[2018-05-31 16:00] VITALS: BP 156/78
--- NOTE | 2018-05-31 17:15 | NUR ---
PT ON BEDSIDE COMMODE. PT INSIST ON USING BEDSIDE COMMODE
--- NOTE | 2018-05-31 17:30 | NUR ---
OBTAINED INFORMED CONSENT FOR DR. QUINTERO AND MEDICAL STUDENTS FOR BEDSIDE PERFORMING MANUAL MANIPULATION OF THE PTS LOWER EXTREMITIES TO HELP WITH FOOT DROP AND LYMPHEDEMA
[2018-05-31 17:46] LABS: FOLIC ACID > 20.00 ng/mL (>3.0)
--- NOTE | 2018-05-31 19:20 | NUR ---
HANDOFF REPORT GIVEN TO PLASTIC SURGERY MANAGER NURSE. PT STABLE IN BED NO SIGNS OF DISTRESS. ALL SAFETY MEASURES IN PLACE.
--- NOTE | 2018-05-31 19:21 | NUR ---
RECEIVED BEDSIDE REPORT FROM YASMANI DALEY. PT IS AAO X 4. ON NC 2L O2. CURRENTLY RECEIVING BREATHING TREATMENT. C/C LEFT LEG PAIN. DENIES ANY SOB OR PAIN AT THIS TIME. SKIN INTACT. YARITZA LEG EDEMA. IV ON L HAND 24G NS INFUSING AT 40ML/HR. PT HAS THOMAS CATH DRAINING CLEAR YELLOW URINE. PLAN OF CARE DISCUSSED WITH PT. CALL LIGHT WITHIN REACH. WILL CONTINUE TO MONITOR.
[2018-05-31 20:00] VITALS: BP 123/85
[2018-05-31] MEDS: SENNA 8.6 MG TAB PO SCH (20:57)
[2018-05-31] MEDS: ATORVASTATIN 80 MG TAB PO SCH (20:57)
--- NOTE | 2018-05-31 20:59 | NUR ---
VITAL SIGNS ARE STABLE. DUE MEDICATIONS WERE GIVEN. PT TOLERATED WELL. ALL NEEDS MET AT THIS TIME. CALL LIGHT IS WITHIN REACH.
[2018-05-31 21:16] LABS: FERRITIN 160 ng/mL (15-150)
[2018-06-01] VITALS: BP 141/82
--- NOTE | 2018-06-01 00:04 | NUR ---
PT ASLEEP. RESPIRATIONS ARE EQUAL AND UNLABORED. CALL LIGHT WITHIN REACH. BED ALARM ON.
--- NOTE | 2018-06-01 01:13 | NUR ---
PT SLEEPING COMFORTABLY IN BED. NO S/S OF DISTRESS. CALL LIGHT WITHIN REACH. BED ALARM ON. WILL CONTINUE TO MONITOR.
[2018-06-01 04:00] VITALS: BP 120/69
--- NOTE | 2018-06-01 04:00 | NUR ---
VITAL SIGNS ARE WITHIN NORMAL LIMITS. ALL NEEDS MET AT THIS TIME. CALL LIGHT WITHIN REACH. WILL CONTINUE TO MONITOR.
[2018-06-01] MEDS: BLOOD GLUCOSE MONITORING 1 DEV DEV FS SCH ×2 (05:51→10:12)
[2018-06-01] MEDS: INSULIN LISPRO SLIDING SCALE 100 UNITS/ML VIAL SUBQ PRN ×5 (05:59→15:06)
[2018-06-01 06:41] LABS: PHOSPHORUS 3.8 mg/dL (2.5-4.9)
[2018-06-01 06:48] LABS: BASOPHILS # (AUTO) 0.1 K/uL (0.00-0.22); HEMATOCRIT 26.5 % (36-48); HEMOGLOBIN 8.3 g/dL (12.0-16.0); LYMPHOCYTES # (AUTO) 0.7 K/uL (2.5-16.5); LYMPHOCYTES % (AUTO) 12.1 % (20.5-51.1); MEAN CORPUSCULAR HEMOGLOBIN 24 pg (27-31); MEAN CORPUSCULAR HGB CONC 31 g/dL (33-37); MONOCYTES # (AUTO) 0.2 K/uL (0.8-1.0); MONOCYTES % (AUTO) 3.9 % (1.7-9.3); NEUTROPHILS # (AUTO) 4.9 K/uL (1.8-7.7); PLATELET COUNT (AUTO) 198 K/uL (140-450); RED BLOOD CELL COUNT(AUTO) 3.54 MIL/uL (4.20-5.40); RED CELL DISTRIBUTION WIDTH 20.7 % (11.6-13.7); WHITE BLOOD COUNT (AUTO) 5.9 K/uL (4.8-10.8)
[2018-06-01 07:04] LABS: ANION GAP 12.2 (8-16); CARBON DIOXIDE 31.4 mmol/L (21-32); CREATININE 1.9 mg/dL (0.6-1.3); POTASSIUM 4.6 mmol/L (3.5-5.1)
--- NOTE | 2018-06-01 07:17 | NUR ---
GAVE BEDSIDE REPORT TO AMADOR DALEY. PT ENDORSED IN STABLE CONDITION.
--- NOTE | 2018-06-01 07:20 | NUR ---
RECEIVED REPORT FROM CAPPER MACHINE OPERATOR NURSE. PT IN BED REQUESTING TO BE PUT ON COMMODE. WE TOLD PT TO WAIT FOR MEDICATION TO HELP WITH CONSTIPATION BEFORE WE PLACE HER ON BEDSIDE COMMODE. RESPIRATIONS GOOD. REPOSITIONED PT AND REMOVED SOILED LINEN.
--- NOTE | 2018-06-01 07:45 | NUR ---
RX NOT GIVEN PT WANTED TO EAT WILL CHECK LATER
[2018-06-01] MEDS: ALBUTEROL SULFATE/IPRATROPIU 3 ML SOL IH SCH ×2 (07:49→13:00)
[2018-06-01 08:00] VITALS: BP 149/77
[2018-06-01] MEDS ORDERED: CARISOPRODOL 350 MG TAB PO SCH (09:00)
[2018-06-01] MEDS: ALLOPURINOL 100 MG TAB PO SCH (09:07)
[2018-06-01] MEDS: CALCITRIOL 0.25 MCG CAPLF PO SCH (09:07)
[2018-06-01] MEDS: FUROSEMIDE 40 MG TAB PO SCH (09:08)
[2018-06-01] MEDS: ASCORBIC ACID 500 MG TAB PO SCH (09:08)
[2018-06-01] MEDS: ASPIRIN 81 MG TAB.CHEW PO SCH (09:08)
[2018-06-01] MEDS: CHOLECALCIFEROL 1,000 IU TAB PO SCH (09:09)
[2018-06-01] MEDS: GABAPENTIN 300 MG CAP PO SCH (09:09)
[2018-06-01] MEDS: FERROUS SULFATE 325 MG TABEC PO SCH (09:09)
[2018-06-01] MEDS: DOCUSATE SODIUM 250 MG GELCAP PO SCH (09:09)
[2018-06-01] MEDS: CARVEDILOL 12.5 MG TAB PO SCH (09:09)
[2018-06-01] MEDS: methylPREDNISolone SS 40 MG/ML VIAL IVP SCH (09:10)
[2018-06-01] MEDS: INSULIN LANTUS 100 UNITS/ML 10 ML VIAL SUBQ SCH (09:11)
--- NOTE | 2018-06-01 09:20 | NUR ---
Fingerstick glucose = 411 prior to Lantus admin. Dr Salinas notified. Per physician, give Lantus & humalog 10units now, then recheck in 30min.
[2018-06-01] MEDS ORDERED: COMMUNICATION ORDER MC PRN (09:25)
--- NOTE | 2018-06-01 10:00 | NUR ---
Fingerstick glucose rechecked at this time with result = 421. Dr. Salinas notified with order to give 10 units more of humalog. Physician to input orders for ABG & clear liquid diet. Discharge order held per physician.
[2018-06-01] MEDS ORDERED: CAPSAICIN 0.025% CRE 60 GM TUBE TP PRN (10:10)
--- NOTE | 2018-06-01 10:20 | NUR ---
REASSESSED PTS BLOOD GLUCOSE [address] CARABALLO PLACED PT ON CLEAR LIQUID DIET REQUESTED FOR CONSULT AND STAT ABG ALSO DELAYED DISCHARGE TIL 1600 PENDING PTS BLOOD SUGAR LEVEL
--- NOTE | 2018-06-01 11:48 | NUR ---
PT REFUSD ABG AT THIS TIME DR NICKOLAS AQUINO
[2018-06-01 12:00] VITALS: BP 139/73
--- NOTE | 2018-06-01 12:04 | NUR ---
CM NOTE RECEIVED ORDER TO DC BACK TO [facility] TODAY. FAXED CLINICAL PACKET TO [facility]. PER CINDY OF [facility], THE PATIENT CAN GO TO [address] VIVEROS TODAY. I SPOKE WITH PATIENT'S SON ISABELL RG WHO STATED THAT HE WILL BE RESPONSIBLE FOR THE PAYMENT FOR [facility] GOING TO [facility]. PER ROSMERY OF [facility], THE PATIENT WILL BE PICKED UP AT 1600 TIME TODAY GOING TO [facility]. DR. ZARATE AND CHARGE NURSE TARA AQUINO.
[2018-06-01] MEDS: NACL 0.9% 1,000 ML IV SCH (13:56)
--- NOTE | 2018-06-01 15:57 | NUR ---
HAND OFF REPORT GIVEN TO [facility] NURSE GISELA. GAVE CRISELLE OUR NUMBER FOR ANY QUESTIONS. PT IS STABLE ON THE COMMODE
--- NOTE | 2018-06-01 16:40 | NUR ---
[facility] LEAVING WITH PT. PT IS STABLE ALL PAPER WORK IS SIGNED. IV REMOVED CATH TIP INTACT. THOMAS CATH REMOVED. DIAPER PLACED ON PT. 4 PERSON ASSIST TO TRANSFER PT TO [facility].
== END 2018-06-01 16:40 | DRG 682 ==
LOC: MED 10:31 → MTU 14:53
PROVIDERS: ADMIT General Practice; ATTEND General Practice
DX: N17.0 Acute kidney failure with tubular necrosis (principal); J96.21 Acute and chronic respiratory failure with hypoxia; J96.22 Acute and chronic respiratory failure with hypercapnia; J44.1 Chronic obstructive pulmonary disease with (acute) exacerbation; E44.0 Moderate protein-calorie malnutrition; I13.0 Hypertensive heart and chronic kidney disease with heart failure and stage 1 through stage 4 chronic kidney disease, or unspecified chronic kidney disease; M79.672 Pain in left foot; N18.4 Chronic kidney disease, stage 4 (severe); M79.605 Pain in left leg; Z68.37 Body mass index [BMI] 37.0-37.9, adult; E11.65 Type 2 diabetes mellitus with hyperglycemia; I50.9 Heart failure, unspecified; E66.01 Morbid (severe) obesity due to excess calories; I89.0 Lymphedema, not elsewhere classified; D50.9 Iron deficiency anemia, unspecified; E02 Subclinical iodine-deficiency hypothyroidism; E78.5 Hyperlipidemia, unspecified; M10.9 Gout, unspecified; M21.372 Foot drop, left foot; E11.40 Type 2 diabetes mellitus with diabetic neuropathy, unspecified; E11.69 Type 2 diabetes mellitus with other specified complication; Z88.1 Allergy status to other antibiotic agents; Z88.5 Allergy status to narcotic agent; Z88.8 Allergy status to other drugs, medicaments and biological substances; Z96.652 Presence of left artificial knee joint; Z86.73 Personal history of transient ischemic attack (TIA), and cerebral infarction without residual deficits; W19.XXXA Unspecified fall, initial encounter; Y93.89 Activity, other specified; Y92.89 Other specified places as the place of occurrence of the external cause; Y99.8 Other external cause status
CPT/HCPCS: 36415; 36600; 71045; 73590; 73630; 80048; 80053; 80305; 81003; 82550; 82553; 82607; 82728; 82746; 82803; 82948; 83036; 83540; 83690; 83735; 83880; 84100; 84134; 84443; 84484; 84550; 85025; 85045; 85379; 85384; 85610; 85730; 86886; 86900; 86901; 87081; 93925; 93971; 94640; 96372; 96374; 97110; 97116; 97530; 99285; J1644; J1815; J1940; J2270; J2920; J7030; J7620; Q0092

== ENCOUNTER 2018-06-21 13:40 | Inpatient (IN) | payer OTHER, MEDICAID ==
[~2018-06-21] VITALS: Ht 162.6 cm; Wt 129.7 kg
[2018-06-21 13:40] VITALS: BP 144/84
--- NOTE | 2018-06-21 13:40 | NUR ---
PATIENT BIB BLS TO ER BED 10.
--- NOTE | 2018-06-21 13:41 | NUR ---
68 Y FEMALE BIBA FROM [facility] C/O HIGH BLOOD SUGAR, PER STAFF PT HAD SUGAR 500. NURSE AT [facility] STATES SHE FELT PT WAS MORE ALTERED THAN USUAL. BS 274 NOW. PT ON 2 L NC O2 AT 98. BILATERAL WHEEZES INSPIRATORY AND EXPIRATORY. VSS AT THIS TIME. AA0X4. RESPIRATORY AT BEDSIDE. BED IS DOWN, LOCKED, BED RAIL X 2, ERMD NOTIFIED. PMH---COPD, CHF, CM, PACEMAKER
[2018-06-21] MEDS ORDERED: ALBUTEROL SULFATE/IPRATROPIU 3 ML SOL IH ONE (13:45)
[2018-06-21] MEDS ORDERED: methylPREDNISolone SS 125 MG/2 ML VIAL IVP ONE (13:45)
[2018-06-21] MEDS ORDERED: ALBUTEROL 0.083% 2.5 MG/3 ML NEBU INH ONE ×2 (13:45→14:10)
--- NOTE | 2018-06-21 14:17 | NUR ---
THOMAS CATHETER PLACED BY LORE DALEY AND YOMI DALEY. PT TOLERATED WELL. 16F
--- NOTE | 2018-06-21 14:28 | NUR ---
DR LINARES AT BEDSIDE
--- NOTE | 2018-06-21 14:30 | NUR ---
VSS AT THIS TIME. PT IS AA0X4. SITTING IN BED
[2018-06-21 14:43] LABS: BASOPHILS # (AUTO) 0.1 K/uL (0.00-0.22); BASOPHILS % (AUTO) 1.1 % (0.0-2.0); EOSINOPHILS # (AUTO) 0.2 K/uL (0-0.4); EOSINOPHILS % (AUTO) 2.4 % (0.0-4.0); HEMATOCRIT 26.5 % (36-48); HEMOGLOBIN 8.1 g/dL (12.0-16.0); LYMPHOCYTES # (AUTO) 0.7 K/uL (2.5-16.5); MEAN CORPUSCULAR HEMOGLOBIN 23 pg (27-31); MEAN CORPUSCULAR HGB CONC 31 g/dL (33-37); MEAN CORPUSCULAR VOLUME 75.3 fL (80-94); MONOCYTES # (AUTO) 0.9 K/uL (0.8-1.0); MONOCYTES % (AUTO) 11.7 % (1.7-9.3); NEUTROPHILS # (AUTO) 6.2 K/uL (1.8-7.7); NEUTROPHILS % (AUTO) 75.8 % (42.2-75.2); PLATELET COUNT (AUTO) 236 K/uL (140-450); RED BLOOD CELL COUNT(AUTO) 3.53 MIL/uL (4.20-5.40); RED CELL DISTRIBUTION WIDTH 21.4 % (11.6-13.7); WHITE BLOOD COUNT (AUTO) 8.1 K/uL (4.8-10.8)
[2018-06-21] MEDS ORDERED: cefTRIAXone 1,000 MG VIAL ONE (14:58)
[2018-06-21 15:06] LABS: ALBUMIN 2.6 g/dL (3.4-5.0); ANION GAP 8.3 (8-16); CREATININE 2.1 mg/dL (0.6-1.3); POTASSIUM 4.3 mmol/L (3.5-5.1); TOTAL BILIRUBIN 0.3 mg/dL (0.0-1.0)
--- NOTE | 2018-06-21 15:16 | NUR ---
BUN 76
--- NOTE | 2018-06-21 15:30 | NUR ---
VSS AT THIS TIME. PT SLEEPING IN BED
[2018-06-21 15:48] LABS: APPEARANCE,URINE CLEAR (CLEAR); BILIRUBIN,URINE NEGATIVE (NEGATIVE); BLOOD, URINE 1+ (NEGATIVE); COLOR,URINE YELLOW (YELLOW); LEUKOCYTE ESTERASE ,URINE 1+ (NEGATIVE); NITRITE, URINE NEGATIVE (NEGATIVE); UGLUCOSE NEGATIVE (NEGATIVE)
[2018-06-21] MEDS ORDERED: MEDICATION REC. PHARMACY CONS. 1 EA MISC MC PRN (15:50)
[2018-06-21] MEDS ORDERED: ONDANSETRON 4 MG/2 ML VIAL IVP PRN (15:50)
[2018-06-21] MEDS ORDERED: ACETAMINOPHEN 325 MG TAB PO PRN (15:50)
[2018-06-21] MEDS ORDERED: HYDROcodone/APAP 7.5/325 MG 1 TAB PO PRN (15:50)
[2018-06-21] MEDS ORDERED: DEXTROSE 50% 50 ML SYR IVP PRN (15:55)
[2018-06-21 16:08] LABS: RBC,URINE 0-5 /HPF (0-5)
--- NOTE | 2018-06-21 16:30 | NUR ---
VSS AT THIS TIME. PT SLEEPING.
[2018-06-21 16:38] LABS: BARBITURATE, URINE NEG. ng/ml (NEG <=200); BENZODIAZEPINE, URINE NEG. ng/mL (NEG <=200); CANNABINOID, URINE NEG. ng/mL (NEG <=50); COCAINE, URINE NEG. ng/mL (NEG <=300); OPIATE, URINE NEG. ng/mL (NEG <=2000); PHENCYCLIDINE SCREEN,URINE NEG. ng/mL (NEG <=25)
--- NOTE | 2018-06-21 16:40 | NUR ---
Patient will be admitted to care of JAIME. Admited to TELE. Will go to room 113. Belongings list completed. Report to CARY DALEY.
[2018-06-21 16:42] VITALS: BP 131/80
--- NOTE | 2018-06-21 16:42 | NUR ---
RECEIVED BEDSIDE REPORT FROM ER NURSE. PATIENT IS AAOX2. ON O2 2L NC. PT HAS LABORED BREATHING. LUNG SOUNDS WHEEZING. +2 PITTING EDEMA TO BLE. SKIN INTACT, NO ACTIVE WOUND. PT IS VERY OBESE. DX PNA, SOB, HYPERGLYCEMIA. PATIENT HAS GENERALIZED WEAKNESS, AND LEFT LEG WEAKNESS. FALL RISK PROTOCOL INITIATED. MRSA SWAB DONE. IV TO THE LEFT AC, FLUSHED, PATENT AND WORKING WELL. ORIENTED PT ROOM AND CALL LIGHT. CALL LIGHT WITHIN REACH. WILL CONTINUE TO MONITOR.
[2018-06-21 16:46] LABS: CHOL/HDL RATIO 2.6 (1-4.5); FREE T4 (FREE THYROXINE) 0.81 ng/dL (0.76-1.46); MAGNESIUM 2.4 mg/dL (1.8-2.4); PHOSPHORUS 4.5 mg/dL (2.5-4.9); THYROID STIMULATING HORMONE 5.79 uIU/mL (0.34-3.74)
[2018-06-21] MEDS ORDERED: LIP80 PO (16:52)
[2018-06-21] MEDS ORDERED: FURO-570 PO (16:52)
--- NOTE | 2018-06-21 17:10 | NUR ---
FLU SWAB DONE. ALSO CHECK PT'S BG, 112. PT IS STABLE AT THIS TIME.
[2018-06-21 17:14] LABS: PROTHROMBIN TIME 10.7 secs (10.8-13.4)
[2018-06-21] MEDS: BLOOD GLUCOSE MONITORING 1 DEV DEV FS SCH ×2 (17:23→20:30)
--- NOTE | 2018-06-21 17:28 | NUR ---
(LATE ENTRY) REVIEWED BIPAP ORDER WITH DR ISAURA KUMAR MD STATES THAT "BIPAP IS PRN FOR SOB" UNAWARE TO PUT COMMENT IN ORDER
[2018-06-21] MEDS ORDERED: ALBUTEROL SULFATE/IPRATROPIU 3 ML SOL IH SCH (18:00)
[2018-06-21] MEDS ORDERED: SODIUM FERRIC GLUCONATE 125 MG in NACL 0.9% 100 ML IV SCH (18:00)
--- NOTE | 2018-06-21 18:00 | NUR ---
ASSISTED PT TO THE EDGE OF THE BED, SITTING UP TO EAT DINNER.
--- NOTE | 2018-06-21 19:30 | NUR ---
ENDORSED PT TO POLISHING WHEEL REPAIRER RN. PT IS BACK TO BED IN STABLE CONDITION.
--- NOTE | 2018-06-21 19:31 | NUR ---
RECEIVED BEDSIDE REPORT FROM DAY SHIFT RN. PT IS SLEEPING COMFORTABLY IN BED. EASILY ROUSED. AAO X1 PERSON. NC 2L O2. SKIN INTACT PER NURSE. HAS PITTING +2 ON LEGS. IV ON LAC 22G TKO. PT WITH THOMAS CATH IN PLACE DRAINING CLEAR YELLOW URINE. BEDSIDE COMMODE AT BEDSIDE PER RN PT TO WEAK TO STAND UP. PT HAS DRAINAGE ON R EYE. PT HAS PACEMAKER AND ORDER FOR BIPAP TONIGHT. PLAN OF CARE DISCUSSED WITH PT. SAFETY MEASURES ARE IN PLACE. CALL LIGHT WITHIN REACH.
[2018-06-21 20:00] VITALS: BP 135/69
[2018-06-21] MEDS: ALBUTEROL SULFATE/IPRATROPIU 3 ML SOL IH SCH (20:00)
--- NOTE | 2018-06-21 20:19 | NUR ---
RECEIVED PATIENT ON 2L NASAL CANNULA, PULSE OX SAT 94%. BREATH SOUNDS DIMINISHED WITH WHEEZING. PATIENT VERY AGITATED. REFUSING BREATHING TREATMENT AT THIS TIME. PATIENT KEEPS STATING SHE WILL NOT TAKE HER TREATMENT AT THIS TIME. EXPLAINED TO PATIENT THE BENEFITS OF HER BREATHING TREATMENT. PATIENT STILL REFUSING TO TAKE BREATHING TREATMENT. NOTIFIED RN. WILL CONTINUE TO MONITOR.
--- NOTE | 2018-06-21 20:31 | NUR ---
PT IS REFUSING MEDS. STATES SHE DID NOT HAVE A DINNER TRAY. TRAY AT BEDSIDE EMPTY STATES WAS BROUGHT IN LIKE THAT. ORDERED A SANDWICH FOR PT. BG 162 NOW WAS 112 BEFORE DINNER. WILL TRY GIVING MEDS LATER.
[2018-06-21] MEDS: PIPER/TAZO 2.25GM/D5W PREMIX 50 ML IV SCH (20:58)
--- NOTE | 2018-06-21 20:58 | NUR ---
PT ACCEPTING DUE MEDICATIONS AT THIS TIME. PT TOLERATED WELL. VITAL SIGNS ARE WITHIN NORMAL LIMITS. PT SITTING IN BED EATING SANDWICH. FALL PRECAUTION IN PLACE. CALL LIGHT WITHIN REACH. WILL CONTINUE TO MONITOR.
[2018-06-21] MEDS ORDERED: FUROSEMIDE 40 MG TAB PO SCH (21:00)
[2018-06-21] MEDS: FUROSEMIDE 40 MG TAB PO SCH (21:01)
[2018-06-21] MEDS: DOCUSATE SODIUM 100 MG GELCAP PO SCH (21:01)
[2018-06-21] MEDS: methylPREDNISolone SS 125 MG/2 ML VIAL IVP SCH (21:01)
[2018-06-21] MEDS: CARVEDILOL 12.5 MG TAB PO SCH (21:02)
[2018-06-21] MEDS: INSULIN LISPRO SLIDING SCALE 100 UNITS/ML VIAL SUBQ PRN (21:06)
[2018-06-21] MEDS: ALBUTEROL SULFATE/IPRATROPIU 3 ML SOL IH PRN (21:19)
[2018-06-22] VITALS: BP 151/62
--- NOTE | 2018-06-22 | NUR ---
VITAL SIGNS ARE WITHIN NORMAL LIMITS. ALL NEEDS MET AT THIS TIME. CALL LIGHT WITHIN REACH. WILL CONTINUE TO MONITOR.
--- NOTE | 2018-06-22 02:44 | NUR ---
PT IS SLEEPING COMFORTABLY IN BED. PT ON BIPAP. RESPIRATIONS ARE EQUAL AND UNLABORED. ALL NEEDS MET AT THIS TIME. WILL CONTINUE TO MONITOR.
[2018-06-22 04:00] VITALS: BP 148/64
--- NOTE | 2018-06-22 04:00 | NUR ---
VITAL SIGNS ARE WITHIN NORMAL LIMITS. PT SITTING IN BED DRINKING AN APPLE JUICE. ALL NEEDS MET AT THIS TIME. CALL LIGHT WITHIN REACH. WILL CONTINUE TO MONITOR.
[2018-06-22] MEDS: PIPER/TAZO 2.25GM/D5W PREMIX 50 ML IV SCH ×3 (05:28→21:00)
--- NOTE | 2018-06-22 05:28 | NUR ---
DUE MEDICATIONS GIVEN. PT TOLERATED WELL. ALL NEEDS MET AT THIS TIME. CALL LIGHT WITHIN REACH.
[2018-06-22] MEDS: methylPREDNISolone SS 125 MG/2 ML VIAL IVP SCH ×2 (05:37→12:33)
[2018-06-22] MEDS: INSULIN LISPRO SLIDING SCALE 100 UNITS/ML VIAL SUBQ PRN ×4 (06:21→23:21)
[2018-06-22] MEDS: BLOOD GLUCOSE MONITORING 1 DEV DEV FS SCH ×5 (06:53→23:19)
--- NOTE | 2018-06-22 07:13 | NUR ---
GAVE BEDSIDE REPORT TO MARIANO RN. PT ENDORSED IN STABLE CONDITION. SAFETY MEASURES ARE IN PLACE.
--- NOTE | 2018-06-22 07:14 | NUR ---
REPORT RECEIVED FROM PRODUCE SORTER NURSE AT BEDSIDE FOR CONTINUITY OF CARE. PATIENT LETHARGIC BUT DOES ANSWER QUESTIONS. PATIENT ON 3L O2 VIA NC. CURRENTLY GETTING BREATHING TREATMENTS. RESPIRATIONS EVEN AND UNLABORED. IV SITE INTACT, ASYMPTOMATIC AND SALINE LOCKED. UPDATED BOARD. SAFETY PRECAUTIONS IN PLACE, BED IN LOWEST SETTING WITH ALARM ON, CALL LIGHT WITHIN REACH, WILL CONTINUE TO MONITOR PATIENT. Addendum: 06/22/18 at 1121 by [place] RN THOMAS CATHETER DRAINING TO GRAVITY WITH YELLOW URINE.
[2018-06-22 07:19] LABS: MAGNESIUM 2.3 mg/dL (1.8-2.4); PHOSPHORUS 5.3 mg/dL (2.5-4.9)
[2018-06-22] MEDS: ALBUTEROL SULFATE/IPRATROPIU 3 ML SOL IH SCH ×5 (07:23→23:00)
[2018-06-22 07:24] LABS: ANION GAP 9.9 (8-16); CARBON DIOXIDE 32.8 mmol/L (21-32); CREATININE 2.2 mg/dL (0.6-1.3); POTASSIUM 4.7 mmol/L (3.5-5.1)
[2018-06-22 08:00] VITALS: BP 150/86
--- NOTE | 2018-06-22 08:04 | NUR ---
PT REFUSED ABG X3.
--- NOTE | 2018-06-22 08:10 | NUR ---
INFORMED THAT PT REFUSED ABG
--- NOTE | 2018-06-22 08:17 | NUR ---
PATIENT HAS BEEN SCREENED AND CATEGORIZED HIGH NUTRITION RISK. PATIENT WILL BE SEEN WITHIN 1-2 DAYS OF ADMISSION. 06/22/18-06/23/[address]
[2018-06-22] MEDS ORDERED: INSULIN LANTUS 100 UNITS/ML 10 ML VIAL SUBQ SCH (09:00)
[2018-06-22 09:24] LABS: HEMOGLOBIN 8.6 g/dL (12.0-16.0); MEAN CORPUSCULAR HEMOGLOBIN 23 pg (27-31)
[2018-06-22 09:33] LABS: BASOPHILS % (AUTO) 0.3 % (0.0-2.0); EOSINOPHILS % (AUTO) 0.1 % (0.0-4.0); HEMATOCRIT 28.2 % (36-48); LYMPHOCYTES # (AUTO) 0.9 K/uL (2.5-16.5); LYMPHOCYTES % (AUTO) 12.9 % (20.5-51.1); MEAN CORPUSCULAR HGB CONC 30 g/dL (33-37); MEAN CORPUSCULAR VOLUME 75.8 fL (80-94); MONOCYTES # (AUTO) 0.1 K/uL (0.8-1.0); MONOCYTES % (AUTO) 1.6 % (1.7-9.3); NEUTROPHILS % (AUTO) 85.1 % (42.2-75.2); PLATELET COUNT (AUTO) 242 K/uL (140-450); RED BLOOD CELL COUNT(AUTO) 3.72 MIL/uL (4.20-5.40); RED CELL DISTRIBUTION WIDTH 21.6 % (11.6-13.7); WHITE BLOOD COUNT (AUTO) 7.1 K/uL (4.8-10.8)
[2018-06-22] MEDS: FUROSEMIDE 40 MG TAB PO SCH ×2 (09:55→21:00)
[2018-06-22] MEDS: ASPIRIN 81 MG TAB.CHEW PO SCH (09:56)
[2018-06-22] MEDS: CALCITRIOL 0.25 MCG CAPLF PO SCH (09:56)
[2018-06-22] MEDS: ASCORBIC ACID 500 MG TAB PO SCH (09:56)
[2018-06-22] MEDS: ALLOPURINOL 100 MG TAB PO SCH (09:56)
[2018-06-22] MEDS: CARVEDILOL 12.5 MG TAB PO SCH ×2 (09:56→21:00)
[2018-06-22] MEDS: DOCUSATE SODIUM 100 MG GELCAP PO SCH ×2 (09:56→21:00)
[2018-06-22] MEDS: LACTOBACILLUS RHAMNOSUS GG 1 EACH CAP PO SCH (09:56)
--- NOTE | 2018-06-22 09:56 | NUR ---
BLOOD SUGAR 304, COVERAGE GIVEN. ORDERED MEDICATIONS GIVEN. PATIENT TOLERATED IT. PATIENT STILL LETHARGIC BUT ANSWERING QUESTIONS AND FOLLOWS COMMANDS. SAFETY PRECAUTIONS IN PLACE, CALL LIGHT WITHIN REACH, WILL CONTINUE TO MONITOR PATIENT.
[2018-06-22] MEDS: FAMOTIDINE 20 MG TAB PO SCH (10:03)
--- NOTE | 2018-06-22 10:34 | NUR ---
PATIENT ON BEDSIDE COMMODE WITH 2 PATIENT ASSIST. PATIENT HAD BOWEL MOVEMENT. ALL NEEDS MET AT THIS TIME. SAFETY PRECAUTIONS IN PLACE, CALL LIGHT WITHIN REACH, WILL CONTINUE TO MONITOR PATIENT.
[2018-06-22 12:00] VITALS: BP 154/89
--- NOTE | 2018-06-22 12:38 | NUR ---
ORDERED MEDICATIONS GIVEN. PATIENT TOLERATED THEM WELL. PATIENT SITTING ON SIDE OF BED EATING LUNCH. NO SIGN OF DISTRESS OR SOB NOTED. PATIENT DENIES PAIN. SAFETY PRECAUTIONS IN PLACE, CALL LIGHT WITHIN REACH, WILL CONTINUE TO MONITOR PATIENT.
--- NOTE | 2018-06-22 13:57 | NUR ---
PATIENT REQUESTED FOR SANDWICH. INFORMED HER ABOUT HER CCHO 60G DIET AND ELEVATED BLOOD SUGAR. WHEN FOOD WAS REFUSED, PATIENT BECAME ANGRY, STATING "I WANT TO GO AMA", "YOU GUYS CAN'T STARVE ME, I HAVEN'T EATEN LUNCH, GIVE ME A SANDWICH". REMINDED PATIENT THAT SHE ATE 100% OF HER LUNCH. SHE BECAME ANGRY, WANTED TO SPEAK TO A DOCTOR. INFORMED DR. KUMAR, DOCTOR JOSÉ WILL BE IN TO SEE PATIENT. INFORMED PATIENT. WILL CONTINUE TO MONITOR PATIENT.
--- NOTE | 2018-06-22 14:20 | NUR ---
DR. KUMAR IN TO SEE PATIENT. NO NEW ORDERS AT THIS TIME.
--- NOTE | 2018-06-22 14:44 | NUR ---
06/22/18 RD INITIAL ASSESSMENT COMPLETED PLEASE REFER TO NUTRITION ASSESSMENT UNDER CARE ACTIVITY FOR ESTIMATED NUTRITIONAL NEEDS. 1. CONTINUE [facility] DIET TOLERATED 2. DIABETES EDUCATION WAS PROVIDED 3. RD TO FOLLOW-UP 5-7 DAYS, LOW RISK KHAI BRANTLEY RD
--- NOTE | 2018-06-22 15:30 | NUR ---
PT REFUSED TX
--- NOTE | 2018-06-22 15:55 | NUR ---
PATIENT USED BEDSIDE COMMODE, HAD SOFT BM. PATIENT MOVED BACK TO BED WITH 3 PERSON ASSIST. PATIENT NOW RESTING IN BED, ASKING FOR FOOD. INFORMED PATIENT THAT PATIENT BLOOD SUGAR CHECKS MUST BE DONE AND THAT PATIENT IN ON CCHO 60 GM DIET. PATIENT GETTING ANXIOUS AND ANGRY, DEMANDED FOR SNACK OR SANDWICH. VS WNL. SAFETY PRECAUTIONS IN PLACE, CALL LIGHT WITHIN REACH, WILL CONTINUE TO MONITOR PATIENT.
[2018-06-22 16:00] VITALS: BP 144/85
--- NOTE | 2018-06-22 17:00 | NUR ---
PATIENT REFUSED INSULIN COVERAGE FOR BLOOD SUGAR OF 311. PATIENT KNOWS THE BENEFIT BUT PATIENT STATES THAT SHE WANTS FOOD, NOT INSULIN. INFORMED HER OF HER DIET AND THAT SHE NEEDS COVERAGE. PATIENT STILL REFUSED. STATING "I'M HUNGRY, I WANT FOOD, GET ME A SANDWICH". PATIENT CALLED RN "SHARATH". SAFETY PRECAUTIONS IN PLACE, CALL LIGHT WITHIN REACH, WILL CONTINUE TO MONITOR PATIENT.
--- NOTE | 2018-06-22 17:15 | NUR ---
PATIENT ASKED TO USE THE BSC. RN IN TO ASSIST. PATIENT CALLED RN "SHARATH" AND ASKED FOR A SANDWICH, PATIENT STILL REFUSED INSULIN. BEATING MACHINE OPERATOR TARA AQUINO. WILL CONTINUE TO MONITOR PATIENT.
--- NOTE | 2018-06-22 17:43 | NUR ---
DR. VASQUEZ IN TO SEE THE PATIENT. WILL WAIT FOR HER ORDERS.
--- NOTE | 2018-06-22 18:45 | NUR ---
PATIENT CLEANED AND MOVED FROM BSC BACK ONTO BED. SON ISABELL AT BEDSIDE. UPDATED HIM ON PLAN OF CARE AND PATIENT'S FORGETFULNESS. HE VERBALIZED UNDERSTANDING. PATIENT SETTLED COMFORTABLY IN BED. NO COMPLAINTS AT THE MOMENT. WILL CONTINUE TO MONITOR AND ENDORSE TO OVEN HEATER HELPER NURSE.
--- NOTE | 2018-06-22 19:34 | NUR ---
REPORT GIVEN TO TEACHER THEATER ARTS NURSE. PATIENT IN STABLE CONDITION SITTING UP IN BED.
--- NOTE | 2018-06-22 19:35 | NUR ---
RECEIVED FROM AM RN SITTING AT THE EDGE OF HER BED NEAR HER BEDSIDE COMMODE. REFUSES TO GET BACK AND LAY DOWN IN HER BED. A/O X 4. WITH FORGETFULNESS. PT. MORBIDLY OBESE FEMALE. LAC#20 IVF SITE INTACT WITH GOOD BLOOD RETURN. ON TKO RATE. ON 02 AT 2LPM/NC. WITH BREATHING TREATMENTS.
[2018-06-22 19:55] VITALS: BP 150/81
--- NOTE | 2018-06-22 20:46 | NUR ---
RECEIVED PATIENT ON 3L NASAL CANNULA. PATIENT VERY AGITATED. PATIENT REFUSING ASSESSMENT. PATIENT REFUSING BREATHING TREATMENT. NO ACUTE RESPIRATORY DISTRESS NOTED AT THIS TIME. WILL CONTINUE TO MONITOR.
[2018-06-22] MEDS: methylPREDNISolone SS 40 MG/ML VIAL IVP SCH (21:00)
--- NOTE | 2018-06-22 21:00 | NUR ---
PT. ASSISTED TO BEDSIDE COMMODE BY CNAS. NOTED PT. CAN STAND ON HER OWN . PER CNAS SHE PULLED OUT HER IVF. CHECKED IVF TUBING AND IT IS INTACT. NO BLEEDING NOTED TO SITE. REFUSED TO INSERT NEW ONE.
--- NOTE | 2018-06-22 22:04 | NUR ---
PT. REFUSED TO TAKE ANY MEDICATIONS AT ALL. PT. TALKED WITH SON ON THE PHONE AND WENT BACK TO BED WITH CONDITION HE PICK HIM UP TOMORROW. PT. WALKED OUT FROM HER BEDSIDE COMMODE BY USING TABLE AND WANTED TO GO HOME. CHARGE NURSE AWARE OF IT AND TALKED WITH HER TO NO AVAIL. RESIDENT MD LEONARD AWARE OF PT. REFUSING MEDICATIONS AND NEW IVF SITE . "OK" PT.S SON AWARE OF IT. PT. ABLE TO VERBALIZE WELL IN MALAGASY AND STATED THAT YOU PEOPLE THINK I DON'T KNOW WHAT I WANT. I KNOW WHAT I WANT AND NEED. PT. WENT BACK TO BED AFTER TALKING WITH SON . STILL REFUSED MEDICATIONS. STATED " I WILL GO HOME TOMORROW WHEN MY SON COMES".
--- NOTE | 2018-06-22 22:12 | NUR ---
CAR ESCORT AWARE OF SITUATION AND SHE TRIED TALKING TO HER TOO. STILL REFUSED TO HAVE MEDICATIONS.
--- NOTE | 2018-06-22 22:40 | NUR ---
PT. STILL AWAKE AT THIS TIME. WANTING TO GET OUT OF BED AGAIN. INFORMED HER SHE JUST GOT BACK IN BED AND HAD USED THE BEDSIDE COMMODE WITHOUT ANY BM RT SHE WENT ALREADY X1 THIS SHIFT EARLIER . PT. SHOUTING ON TOP OF HER VOICE DEMANDING TO GET OUT OF BED. OFFERED HER BED MARTIN. REFUSED. BED ALARM ON. EXPLAINED THAT THE LAST TIME SHE WAS IN BEDSIDE COMMODE SHE HAD A HARD TIME GETTING BACK IN BED. PT. SAID SHE STILL WANTS THE MANAGER ROUTE. MANAGER ROUTE SEEN HER AND EXPLAINED TO HER THE SITUATION AND THAT SHE IS FALL RISK AND HARD TO PUT BACK IN BED. WILL CONTINUE WTO MONITOR FREQUENTLY.
--- NOTE | 2018-06-22 23:11 | NUR ---
PT. STILL AWAKE AND WANTING TO GET OUT OF BED. REMINDED HER THAT SHE CAN NOT GO BACK IN BED EASILY RT SHE NEEDS OXYGEN LIKE WHAT HAPPENED EARLIER. STATING SHE WANTS TO GO HOME AND TO TELL HER SON TO PICK HER UP SOON HE CAN. STILL REFUSING TO HAVE NEW IVF LINE. "NO" PER PT. TO NEW IVF LINE EVEN IF EXPLAINED TO HER THE NEED OF IT.
--- NOTE | 2018-06-22 23:21 | NUR ---
PATIENT REMAINS NONCOMPLIANT WITH THERAPY. PATIENT REFUSING ASSESSMENT AND BREATHING TREATMENT. WILL CONTINUE TO MONITOR.
[2018-06-23] MEDS ORDERED: HALOPERIDOL IM 5 MG/ML VIAL IM SCH
--- NOTE | 2018-06-23 00:05 | NUR ---
PT. TRANSFERRED TO ROOM 123 FROM 113 FOR EASY ACCESS AND BETTER PHYSICAL VISIBILITY RT PT. KEEPS TRYING TO GET OUT OF BED AND STATING SHE WANTS TO GO HOME. PT. DANGLING ONE LEG OUT . INFORMED RESIDENT MD AND WITH NEW ORDERS TO GIVE HALDOL IM . MEDICATED ORDERED. INFORMED RESIDENT THAT THE SON TOLD ME LAST NIGHT THAT CAN WE PLEASE GIVE HER MOTHER SOMETHING TO CALM HER DOWN IF SHE STILL WANTS TO GET OUT. DIESEL CRANE OPERATOR AWARE OF CHANGES AND STATUS.
--- NOTE | 2018-06-23 00:08 | NUR ---
HALDOL IM ORDERED ADMINISTERED BY CHARGE NURSE TO RIGHT DELTOID AREA . ENCOURAGED TO SLEEP. WILL MONITOR CLOSELY.
--- NOTE | 2018-06-23 00:42 | NUR ---
PT. STILL AWAKE. TELEMETRY MONITORING . WANTING TO HAVE ANOTHER BAG OF CHIPS . PT. WAS PROVIDED WITH CHIPS EARLIER REQUESTED AND WITH CRANBERRY JUICE. ALLOWED ME TO GIVE HER HUMALOG INSULIN IN RETURN FOR A BAG OF CHIPS. REMINDED HER THAT SHE WAS ALREADY GIVEN A BAG OF CHIPS AND JUICE.
--- NOTE | 2018-06-23 01:30 | NUR ---
PT. SLEEPING AT THIS TIME. BED ALARM ON.
--- NOTE | 2018-06-23 03:11 | NUR ---
PT. SLEEPING WELL AT THIS TIME. ON 02 AT 3LPM/NC TITRATED BY RESPIRATORY THERAPIST.
[2018-06-23] MEDS: ALBUTEROL SULFATE/IPRATROPIU 3 ML SOL IH SCH ×6 (03:32→23:00)
--- NOTE | 2018-06-23 03:42 | NUR ---
PATIENT ON 3L NASAL CANNULA, PULSE OX SAT 98%. PATIENT REUSED BIPAP BUT AGREEABLE TO BREATHING TREATMENT. SCHEDULED BREATHING TREATMENT ADMINISTERED. TOLERATED TX WELL, NO ADVERSE SIDE EFFECTS. PLACED PATIENT BACK ON 3L NC. NO RESPIRATORY DISTRESS NOTED. WILL CONTINUE TO MONITOR.
[2018-06-23 03:51] VITALS: BP 150/79
[2018-06-23] MEDS: methylPREDNISolone SS 40 MG/ML VIAL IVP SCH ×4 (04:29→21:12)
[2018-06-23] MEDS: PIPER/TAZO 2.25GM/D5W PREMIX 50 ML IV SCH ×4 (04:29→21:05)
--- NOTE | 2018-06-23 04:29 | NUR ---
INSERTED NEW IVF LINE TO RIGHT HAND #22 FOR IVF ANTIBIOTIC ZOSYN AND SOLU MEDROL IVP DUE. PT. WHEEZING. RESPIRATORY THERAPIST IN WITH HER BREATHING TREATMENTS. PT. WOKE UP AND EXPLAINED TO HER THAT SHE NEEDS THE MEDICATIONS RT SHE IS WHEEZING AND WE NEED IVF LINE. PT. LOOKED AT US INSERTING IVF AND WENT BACK TO SLEEP. TOLERATED WELL. X 1 ATTEMPT . GOOD BLOOD RETURN.
[2018-06-23] MEDS: BLOOD GLUCOSE MONITORING 1 DEV DEV FS SCH ×3 (05:05→21:00)
[2018-06-23] MEDS: INSULIN LISPRO SLIDING SCALE 100 UNITS/ML VIAL SUBQ PRN ×2 (05:07→16:44)
--- NOTE | 2018-06-23 05:46 | NUR ---
DIRECT OF REAL ESTATE IN HERE AND TOOK BLOOD SPECIMEN FOR LABS ORDERED. WOKE UP AND WENT BACK TO SLEEP.
[2018-06-23 06:33] LABS: BASOPHILS % (AUTO) 0.1 % (0.0-2.0); HEMATOCRIT 26.1 % (36-48); LYMPHOCYTES # (AUTO) 1.4 K/uL (2.5-16.5); LYMPHOCYTES % (AUTO) 12.1 % (20.5-51.1); MEAN CORPUSCULAR HEMOGLOBIN 23 pg (27-31); MEAN CORPUSCULAR HGB CONC 31 g/dL (33-37); MEAN CORPUSCULAR VOLUME 74.1 fL (80-94); MONOCYTES # (AUTO) 0.5 K/uL (0.8-1.0); MONOCYTES % (AUTO) 4.7 % (1.7-9.3); NEUTROPHILS # (AUTO) 9.3 K/uL (1.8-7.7); NEUTROPHILS % (AUTO) 83.1 % (42.2-75.2); PLATELET COUNT (AUTO) 249 K/uL (140-450); RED BLOOD CELL COUNT(AUTO) 3.52 MIL/uL (4.20-5.40); RED CELL DISTRIBUTION WIDTH 20.9 % (11.6-13.7); WHITE BLOOD COUNT (AUTO) 11.2 K/uL (4.8-10.8)
[2018-06-23 06:41] LABS: ANION GAP 9.8 (8-16); CARBON DIOXIDE 32.7 mmol/L (21-32); CREATININE 2.3 mg/dL (0.6-1.3); POTASSIUM 4.5 mmol/L (3.5-5.1)
[2018-06-23 06:44] LABS: MAGNESIUM 2.3 mg/dL (1.8-2.4); PHOSPHORUS 4.8 mg/dL (2.5-4.9)
--- NOTE | 2018-06-23 06:56 | NUR ---
CXR TAKEN. PT. TURNED TO SIDE. PILLOW SUPPORT TO PRESSURE AREAS. BED ALARM ON.WOKE UP AND WENT BACK TO SLEEP AGAIN.
--- NOTE | 2018-06-23 07:34 | NUR ---
ENDORSED TO THE NEXT RN FOR CONTINUITY OF CARE. SLEEPING . WAKES UP WHEN TOUCHED. TELEMETRY MONITORING.
--- NOTE | 2018-06-23 07:36 | NUR ---
RECEIVED BEDSIDE REPORT FROM PUBLIC HEALTH TECHNICIAN NURSE FOR CONTINUITY OF CARE. PATIENT IS SLEEPING ON BED AT THIS TIME. NO SIGNS OF DISTRESS NOTED. PATIENT IS ON 3L NC, NO REDNESS AROUND CHEEKS AND NARES NOTED. CHEST RISE NOTABLE AND WHEEZING HEARD ON AUSCULTATION. IV ON R HAND 22G, CLEAN AND INTACT, AND SL. SKIN INTACT AND DRY. THOMAS IN PLACE AND DRAINING YELLOW URINE. SAFETY MEASURES IN PLACE. FALL PRECAUTION INITIALED. CONTACT PRECAUTION INITIALED. TELE MONITOR ATTACHED. BED IN LOW POSITION AND CALL LIGHT WITHIN REACH.
[2018-06-23 08:00] VITALS: BP 143/98
--- NOTE | 2018-06-23 08:20 | NUR ---
ABG ATTEMPTED PT PULLED ARM AWAY DURING PUNCTURE. WILL OBTAIN HELP FROM BUNNY WILLIS AND ATTEMPT PUNCTURE AGAIN.
--- NOTE | 2018-06-23 08:49 | NUR ---
ASSISTED PATIENT TO GET OUT OF BED AND USED THE BEDSIDE COMMODE. HELPED PATIENT GET BACK ON BED AND SAFETY MEASURES ARE IN PLACE. PATIENT IS ON 2LPM NC. DENIES PAIN AND SOB. TELE MONITOR ATTACHED. NO SIGNS OF DISTRESS NOTED.
[2018-06-23] MEDS: ASCORBIC ACID 500 MG TAB PO SCH (10:04)
[2018-06-23] MEDS: ALLOPURINOL 100 MG TAB PO SCH (10:05)
[2018-06-23] MEDS: CARVEDILOL 12.5 MG TAB PO SCH ×3 (10:05→21:04)
[2018-06-23] MEDS: CALCITRIOL 0.25 MCG CAPLF PO SCH (10:05)
[2018-06-23] MEDS: FAMOTIDINE 20 MG TAB PO SCH (10:06)
[2018-06-23] MEDS: LACTOBACILLUS RHAMNOSUS GG 1 EACH CAP PO SCH (10:06)
[2018-06-23] MEDS: ASPIRIN 81 MG TAB.CHEW PO SCH (10:06)
[2018-06-23] MEDS: DOCUSATE SODIUM 100 MG GELCAP PO SCH ×3 (10:06→21:04)
[2018-06-23] MEDS: INSULIN LANTUS 100 UNITS/ML 10 ML VIAL SUBQ SCH (10:08)
--- NOTE | 2018-06-23 10:15 | NUR ---
ADMINISTERED MEDS PER MD ORDER, PATIENT TOLERATED WELL. DENIES PAIN AND SOB. INTERMITTENT, NON PRODUCTIVE COUGHS NOTE. NO SIGNS OF DISTRESS NOTED. TELE MONITOR ATTACHED. SAFETY MEASURES IN PLACE. BED ALARM ACTIVATED.
[2018-06-23] MEDS ORDERED: LIP80 PO (10:58)
--- NOTE | 2018-06-23 11:30 | NUR ---
PATIENT IS RESTING ON BED. WHEEZING NOTED. EDUCATED PATIENT ON THE IMPORTANCE OF USING THE BIPAP TO HELP HER BREATH AND ADHERING TO BREATHING TREATMENT. PATIENT VERBALIZED, " I DON'T LIKE THE BIPAP." SAFETY MEASURES IN PLACE.
--- NOTE | 2018-06-23 11:52 | NUR ---
PT REFUSED BREATHING TX X3, INDICATIONS/BENEFITS EXPLAINED TO PT AND PT STILL REFUSED. PT SITTING UP IN CHAIR BEDSIDE NOT IN ANY DISTRESS. WILL CONTINUE TO MONITOR.
[2018-06-23 12:00] VITALS: BP 148/76
[2018-06-23] MEDS: ALBUTEROL SULFATE/IPRATROPIU 3 ML SOL IH PRN (13:13)
--- NOTE | 2018-06-23 15:20 | NUR ---
PATIENT IS AWAKE AND SITTING UP ON BED AT THIS TIME. NO SIGNS OF DISTRESS NOTED. SAFETY MEASURE IN PLACE.
[2018-06-23 16:00] VITALS: BP 140/86
--- NOTE | 2018-06-23 16:30 | NUR ---
CHECKED PATIENT'S BLOOD GLUCOSE AND RECEIVED 420. NOTIFIED DR LEONARD ON PATIENT'S BLOOD GLUCOSE. AND PER DR LEONARD, RECHECK BLOOD GLUCOSE AT 2100 AND HE WILL PUT IN A MED ORDER.
--- NOTE | 2018-06-23 16:45 | NUR ---
CHECKED BLOOD GLUCOSE AND RECEIVED 421. NOTIFIED DR KUMAR. ADMINISTERED 10 UNIT HUMALOG. PATIENT TOLERATED WELL. SAFETY MEASURES IN PLACE.
--- NOTE | 2018-06-23 19:15 | NUR ---
ENDORSED PATIENT AT BEDSIDE TO REPORTS ANALYST NURSE FOR CONTINUITY OF CARE. PATIENT IS IN A STABLE CONDITION. NOTIFIED REPORTS ANALYST NURSE ON REGARD OF PATIENT'S HIGH GLUCOSE CHECK AT 1628 AND FOLLOW UP IS NEEDED.
[2018-06-23] MEDS: BUDESONIDE 0.5 MG/2 ML NEBU INH SCH (19:28)
--- NOTE | 2018-06-23 19:28 | NUR ---
AWAKE AND ALERT C/O NASAL DRYNESS WITH SUPPLEMENTAL OXYGEN USE ENERGY RISK MANAGEMENT ANALYST TO ADD A HUMIDIFIER [facility] MARILU(#1136) AT BEDSIDE Addendum: 06/23/18 at 2058 by Joel Dillon RT ADDED HUMIDIFIER AND CHANGED NASAL CANNULA
--- NOTE | 2018-06-23 19:30 | NUR ---
RECEIVED BEDSIDE REPORT FROM DAY SHIFT RN, PATIENT IN BED, GETTING BREATHING TREATMENT, R/T AT BEDSIDE, IV IN RIGHT HAND 22 G, SL, PATIENT REFUSED ACCU CHECKS STATED "I DONT NEED THAT" EDUCATION PROVIDED, PATIENT WANTED TO GET OUT OF BED TO WALK AROUND UNIT, TOLD BY DAY SHIFT SHE CANNOT WALK AND TOLD BY CHARGE NURSE LIEN PATIENT REFUSED PHYSICAL THERAPY. EDUCATION PROVIDED, BED ALARM ON, CALL LIGHT WITHIN REACH.
[2018-06-23 20:00] VITALS: BP 142/74
[2018-06-23] MEDS ORDERED: QUEtiapine FUMARATE 25 MG TAB PO PRN (20:25)
--- NOTE | 2018-06-23 20:30 | NUR ---
I attempted to contact Patient's son Isai Fagan at No response and left a MGS with request to call back as soon as possible .
--- NOTE | 2018-06-23 21:00 | NUR ---
I call [facility] at Spoke to Patient's RN Marzena at [facility] stating that Patient has a Polts on chart. Patient has son Ion Bradley as his only emergency contact and verified his contact information; It is correct. Per EDI Ivan Patient's son is hard to get a hold off and can take several calls to reach him. EDI Ivan stated that patient is on a 7 days Skilled bed hold and is able to return to [facility] when she is ready and clear for discharge from [facility]. I thanked her for the information and I ended the call.
[2018-06-23] MEDS: ATORVASTATIN 20 MG TAB PO SCH (21:04)
--- NOTE | 2018-06-23 21:12 | NUR ---
PATIENT REFUSED SCHEDULED MEDICATIONS, SAID SHE WANTED THEM BUT CHANGED MIND WHEN ASKED WHY PATIENT STATED "BECAUSE I SAID SO". EDUCATION PROVIDED. DR AISHA AQUINO.
--- NOTE | 2018-06-23 21:30 | NUR ---
PATIENT REFUSING TO WEAR NC, EDUCATION PROVIDED, PATIENT STATED "I'LL DO I PLEASE".
--- NOTE | 2018-06-23 21:45 | NUR ---
PATIENT REFUSED BIPAP ORDER, STATED "I DONT NEED IT".
--- NOTE | 2018-06-23 23:10 | NUR ---
PATIENT REQUESTED SLEEPING PILL, CALLED DR LEONARD FOR ORDERS.
--- NOTE | 2018-06-23 23:40 | NUR ---
PATIENT STATED SHE CHANGES MIND AND DOES NOT WANT MELATONIN WILL RETURN
[2018-06-23 23:48] VITALS: BP 150/77
--- NOTE | 2018-06-23 23:49 | NUR ---
PATIENT REFUSED 0 [facility] THERAPY AND RESPIRATORY DRUG PATIENT STATES "I DON'T WANT IT"
--- NOTE | 2018-06-23 23:50 | NUR ---
PATIENT CONTINUES TO REFUSE BIPAP, EDUCATION PROVIDED.
[2018-06-24] MEDS ORDERED: MELATONIN 3 MG TAB PO SCH
--- NOTE | 2018-06-24 | NUR ---
PATIENT YELLING "HELP" WENT INTO ROOM, ASKED PATIENT WHAT IS WRONG? PATIENT STATED "I DONT KNOW" ASKED IF SHE NEEDS HELP PATIENT STATED "YES" ASKED WITH WHAT? PATIENT STATED "I DONT KNOW". BED ALARM ON WILL CONTINUE TO MONITOR
--- NOTE | 2018-06-24 00:26 | NUR ---
ATTEMPTED TO CHANGE PATIENT WITH OUTSIDE INDUSTRIAL SALES REPRESENTATIVE [place], PATIENT UNABLE TO LAY FLAT DUE TO SOB, PATIENT REFUSES BREATHING TREATMENTS, EDUCATION PROVIDED, DR LEONARD AWARE PATIENT IS REFUSING MEDS/TREATMENTS.
--- NOTE | 2018-06-24 00:57 | NUR ---
PATIENT YELLING "WYATT!" WHEN ASKED WHO THAT IS PATIENT STATED "YOU SHOULD KNOW". TOLD PATIENT I DONT KNOW CAN YOU EXPLAIN WHO WYATT IS? PATIENT STATED "NO". BED ALARM ON WILL CONTINUE TO MONITOR.
--- NOTE | 2018-06-24 01:51 | NUR ---
PATIENT C/O THAT SHES UNCOMFORTABLE, REPOSITIONED FOR COMFORT, BED ALARM ON WILL CONTINUE TO MONITOR
--- NOTE | 2018-06-24 02:51 | NUR ---
PATIENT AGREED TO HAVE SCHEDULED 0300 BREATHING TX, CALLED RT LEY TO NOTIFY.
--- NOTE | 2018-06-24 03:30 | NUR ---
RT AT BEDSIDE GIVING BREATHING TX. EXPLAINED TO PATIENT OF NEED FOR SPUTUM FOR CULTURE. COLLECTION CUP AT BEDSIDE.
--- NOTE | 2018-06-24 03:55 | NUR ---
PATIENT ON BIPAP, REFUSED V/S.
[2018-06-24] MEDS: PIPER/TAZO 2.25GM/D5W PREMIX 50 ML IV SCH ×3 (05:00→21:11)
[2018-06-24] MEDS: methylPREDNISolone SS 40 MG/ML VIAL IVP SCH ×3 (05:00→21:12)
[2018-06-24] MEDS: INSULIN LISPRO SLIDING SCALE 100 UNITS/ML VIAL SUBQ PRN ×4 (05:43→21:27)
[2018-06-24] MEDS: BLOOD GLUCOSE MONITORING 1 DEV DEV FS SCH ×4 (05:59→20:22)
--- NOTE | 2018-06-24 05:59 | NUR ---
PATIENT REFUSED TO BE TURNED, CLEANED, AND REPOSITIONED, LACE ROLLER OPERATOR AT BEDSIDE, AND I WITNESS PATIENT REFUSE, PATIENT ALSO REFUSED SOUL MEDROL AND ZOSYN, BG 394 GAVE 10 U, DR LEONARD AWARE. Addendum: 06/24/18 at 0620 by Lorenza Tuttle RN SOLU MEDROL
[2018-06-24 07:10] LABS: BASOPHILS % (AUTO) 0.1 % (0.0-2.0); EOSINOPHILS % (AUTO) 0.1 % (0.0-4.0); HEMOGLOBIN 8.7 g/dL (12.0-16.0); LYMPHOCYTES # (AUTO) 1.3 K/uL (2.5-16.5); LYMPHOCYTES % (AUTO) 15.7 % (20.5-51.1); MEAN CORPUSCULAR HEMOGLOBIN 23 pg (27-31); MEAN CORPUSCULAR HGB CONC 31 g/dL (33-37); MEAN CORPUSCULAR VOLUME 74.6 fL (80-94); MONOCYTES # (AUTO) 0.4 K/uL (0.8-1.0); MONOCYTES % (AUTO) 5.3 % (1.7-9.3); NEUTROPHILS # (AUTO) 6.4 K/uL (1.8-7.7); NEUTROPHILS % (AUTO) 78.8 % (42.2-75.2); PLATELET COUNT (AUTO) 272 K/uL (140-450); RED BLOOD CELL COUNT(AUTO) 3.76 MIL/uL (4.20-5.40); RED CELL DISTRIBUTION WIDTH 21.3 % (11.6-13.7); WHITE BLOOD COUNT (AUTO) 8.2 K/uL (4.8-10.8)
[2018-06-24] MEDS: ALBUTEROL SULFATE/IPRATROPIU 3 ML SOL IH SCH ×5 (07:10→22:44)
[2018-06-24] MEDS: BUDESONIDE 0.5 MG/2 ML NEBU INH SCH ×2 (07:14→19:50)
--- NOTE | 2018-06-24 07:23 | NUR ---
ENDORSED PATIENT TO DAY SHIFT NURSE, PATIENT STABLE.
--- NOTE | 2018-06-24 07:24 | NUR ---
RECIEVED REPORT FROM PM NURSE SUMMER, PT ASLEEP IN BED WITH BIPAP ON. RESPIRATION EVEN, UNLABORED. CALL LIGHT WITHIN REACH.
[2018-06-24 07:51] LABS: MAGNESIUM 2.3 mg/dL (1.8-2.4); PHOSPHORUS 4.4 mg/dL (2.5-4.9)
--- NOTE | 2018-06-24 09:28 | NUR ---
Pt asleep in bed with bipap on upon entering room. Pt woke up when name is called. Fingerstick glucose checked. Offered am routine meds. Pt states "leave me be." Explained benefits of routine meds. Pt did not reply & closed her eyes again. Will offer meds again later. Pt in no overt signs of distress, respirations even & nonlabored. Call light within reach.
[2018-06-24 09:40] LABS: ANION GAP 12.1 (8-16); CARBON DIOXIDE 29.8 mmol/L (21-32); CREATININE 2.4 mg/dL (0.6-1.3); POTASSIUM 4.9 mmol/L (3.5-5.1)
[2018-06-24] MEDS ORDERED: NACL 0.9% 500 ML IV SCH (10:05)
--- NOTE | 2018-06-24 10:09 | NUR ---
PT NOTE CHART REVIEWED AND CLEARED FOR PT PER RN; Pt WAS SEEN ASLEEP CURRENTLY ON BIPAP, DIFFICULT TO AROUSE; HOLD PT TX FOR TODAY; WILL FOLLOW UP WITH Pt WHEN MORE ALERT; RN NOTIFIED.
[2018-06-24] MEDS: INSULIN LANTUS 100 UNITS/ML 10 ML VIAL SUBQ SCH (10:12)
[2018-06-24] MEDS: LACTOBACILLUS RHAMNOSUS GG 1 EACH CAP PO SCH (11:19)
[2018-06-24] MEDS: CALCITRIOL 0.25 MCG CAPLF PO SCH (11:21)
[2018-06-24] MEDS: CARVEDILOL 12.5 MG TAB PO SCH ×2 (11:21→21:13)
[2018-06-24] MEDS: ASCORBIC ACID 500 MG TAB PO SCH (11:22)
[2018-06-24] MEDS: ALLOPURINOL 100 MG TAB PO SCH (11:22)
[2018-06-24] MEDS: FAMOTIDINE 20 MG TAB PO SCH (11:22)
[2018-06-24] MEDS: ASPIRIN 81 MG TAB.CHEW PO SCH (11:23)
[2018-06-24] MEDS: FUROSEMIDE 40 MG TAB PO SCH (11:23)
[2018-06-24] MEDS: DOCUSATE SODIUM 100 MG GELCAP PO SCH ×2 (11:23→21:13)
[2018-06-24 12:00] VITALS: BP 129/73
--- NOTE | 2018-06-24 15:10 | NUR ---
Pt transferred from bed to bedside commode per pt request. Offered bed henriquez d/t pt difficulty with transfers. Pt yelled angrily that she doesn't want the bed henriquez. Able to have small BM in commode then transferred back to bed with 3-person max assist. Call light within reach.
[2018-06-24 16:05] VITALS: BP 153/67
--- NOTE | 2018-06-24 16:10 | NUR ---
Pt asleep in bed with bipap on. No signs of distress. Son at bedside visiting.
--- NOTE | 2018-06-24 19:30 | NUR ---
HAD BEDSIDE REPORT FROM DAY SHIFT RN, PATIENT ON RA, REFUSED NC, O2SAT 89%. REFUSING MEDS, AND ACCU CHECK. IV IN RIGHT HAND 22 G SL, THOMAS CATH IN PLACE, BED ALARM ON, WILL CONTINUE TO MONITOR.
--- NOTE | 2018-06-24 19:30 | NUR ---
Bedside report given to pm nurse Summer.
[2018-06-24 20:00] VITALS: BP 147/70
--- NOTE | 2018-06-24 20:23 | NUR ---
PATIENT O2 SAT 89 ON RA, REFUSING BIPAP, REFUSING NC , PATIENT REFUSED ALL MEDS, BG 470 REFUSED INSULIN, EDUCATION PROVIDED, PATIENT YELLED "GET THE HELL OUT OF MY ROOM, IM SICK OF YOU NURSES TELLING ME WHAT TO DO" CALLED DR LOPEZ TO NOTIFY.
--- NOTE | 2018-06-24 21:11 | NUR ---
DUE MEDICATIONS GIVEN, GAVE 10 U FOR BG 470 ACCORDING TO MD ORDER. WILL CONTINUE TO MONITOR
[2018-06-24] MEDS: ATORVASTATIN 20 MG TAB PO SCH (21:12)
[2018-06-24] MEDS: QUEtiapine FUMARATE 25 MG TAB PO SCH (21:12)
--- NOTE | 2018-06-24 21:44 | NUR ---
PATIENT REFUSED TO HAVE BG REASSESSED.
--- NOTE | 2018-06-24 22:30 | NUR ---
PATIENT REQUESTED BREATHING TREATMENT, CALLED RT.
--- NOTE | 2018-06-24 23:00 | NUR ---
PATIENT CONTINUES TO REFUSE BG CHECKS STATED TO CHECK LATER MAYBE, BED ALARM ON.
[2018-06-25] VITALS: BP 155/85
--- NOTE | 2018-06-25 | NUR ---
V/S TAKEN BP 155/85 HR 90 WILL CONTINUE TO MONITOR
--- NOTE | 2018-06-25 01:51 | NUR ---
PT OFF BIPAP AT THIS TIME
--- NOTE | 2018-06-25 02:30 | NUR ---
PATIENT ON BED MARTIN, OLLIE CARE PROVIDED, 1 MODERATE BM NOTED
[2018-06-25] MEDS: ALBUTEROL SULFATE/IPRATROPIU 3 ML SOL IH SCH ×6 (03:08→23:05)
[2018-06-25 04:00] VITALS: BP 145/80
[2018-06-25] MEDS: methylPREDNISolone SS 40 MG/ML VIAL IVP SCH ×2 (05:54→22:15)
[2018-06-25] MEDS: PIPER/TAZO 2.25GM/D5W PREMIX 50 ML IV SCH ×3 (05:54→23:02)
--- NOTE | 2018-06-25 06:20 | NUR ---
DUE MEDICATIONS GIVEN, PATIENT REFUSED BG CHECK WANTED TO SLEEP WILL CALL
[2018-06-25] MEDS: BLOOD GLUCOSE MONITORING 1 DEV DEV FS SCH ×3 (06:31→22:00)
[2018-06-25] MEDS: BUDESONIDE 0.5 MG/2 ML NEBU INH SCH ×2 (07:07→19:31)
--- NOTE | 2018-06-25 07:07 | NUR ---
LOC AWAKE AND ALERT PATIENT SELF REMOVED FROM BIPAP TO MASK SATURATION 88% ON ROOM AIR POST [facility] THERAPY AND RESPIRATORY DRUG PLACED ON SUPPLEMENTAL HUMIDIFIED OXYGEN AT 2 LPM VIA NC [facility] V60 (#1136) AT [facility] FOR PRN SOB USAGE
--- NOTE | 2018-06-25 07:24 | NUR ---
ENDORSED PATIENT TO DAY SHIFT NURSE, PATIENT STABLE.
--- NOTE | 2018-06-25 07:45 | NUR ---
FINGER STICK GLUCOSE 305. BLOOD PROVIDED BY LAB. REQUESTED BY MECHANICAL TECH NURSE. WILL ADMINISTER HUMALOG PER SLIDING SCALE.
--- NOTE | 2018-06-25 07:57 | NUR ---
RECEIVED HANDOFF REPORT FROM GEOGRAPHIC INFORMATION SYSTEM ANALYST NURSE. PT IS AWAKE IN BED WITH NASAL CANULA IN PLACE. PT IS STABLE AND APPEARS IN NO APPARENT DISTRESS. ALL SAFETY MEASURES ARE IN PLACE WILL CONTINUE TO MONITOR.
[2018-06-25 08:00] VITALS: BP 147/74
--- NOTE | 2018-06-25 08:00 | NUR ---
PT REQUESTED ASSISTANCE WITH BREAKFAST. STUDENT NURSE ASSISTANCE, PT REQUESTED LINEN CHANGE. PROVIDED LINEN CHANGE FOR PATIENT.
[2018-06-25 08:47] LABS: PHOSPHORUS 3.8 mg/dL (2.5-4.9)
[2018-06-25 09:01] LABS: BASOPHILS % (AUTO) 0.2 % (0.0-2.0); EOSINOPHILS % (AUTO) 0.1 % (0.0-4.0); HEMATOCRIT 26.2 % (36-48); HEMOGLOBIN 8.2 g/dL (12.0-16.0); LYMPHOCYTES # (AUTO) 1.1 K/uL (2.5-16.5); LYMPHOCYTES % (AUTO) 14.9 % (20.5-51.1); MEAN CORPUSCULAR HEMOGLOBIN 23 pg (27-31); MEAN CORPUSCULAR HGB CONC 32 g/dL (33-37); MEAN CORPUSCULAR VOLUME 73.3 fL (80-94); MONOCYTES # (AUTO) 0.5 K/uL (0.8-1.0); MONOCYTES % (AUTO) 6.2 % (1.7-9.3); NEUTROPHILS # (AUTO) 5.9 K/uL (1.8-7.7); NEUTROPHILS % (AUTO) 78.6 % (42.2-75.2); PLATELET COUNT (AUTO) 260 K/uL (140-450); RED BLOOD CELL COUNT(AUTO) 3.57 MIL/uL (4.20-5.40); RED CELL DISTRIBUTION WIDTH 20.9 % (11.6-13.7); WHITE BLOOD COUNT (AUTO) 7.5 K/uL (4.8-10.8)
[2018-06-25 09:10] LABS: MAGNESIUM 2.2 mg/dL (1.8-2.4)
[2018-06-25 09:32] LABS: POTASSIUM 4.6 mmol/L (3.5-5.1)
[2018-06-25 09:33] LABS: ANION GAP 11.7 (8-16); CARBON DIOXIDE 28.9 mmol/L (21-32)
[2018-06-25 09:34] LABS: CREATININE 2.1 mg/dL (0.6-1.3)
[2018-06-25] MEDS: CALCITRIOL 0.25 MCG CAPLF PO SCH (10:08)
[2018-06-25] MEDS: ALLOPURINOL 100 MG TAB PO SCH (10:09)
[2018-06-25] MEDS: FUROSEMIDE 40 MG TAB PO SCH (10:09)
[2018-06-25] MEDS: ASCORBIC ACID 500 MG TAB PO SCH (10:09)
[2018-06-25] MEDS: LACTOBACILLUS RHAMNOSUS GG 1 EACH CAP PO SCH (10:10)
[2018-06-25] MEDS: ASPIRIN 81 MG TAB.CHEW PO SCH (10:10)
[2018-06-25] MEDS: CARVEDILOL 12.5 MG TAB PO SCH ×2 (10:10→22:16)
[2018-06-25] MEDS: FAMOTIDINE 20 MG TAB PO SCH (10:10)
[2018-06-25] MEDS: DOCUSATE SODIUM 100 MG GELCAP PO SCH ×2 (10:11→22:16)
[2018-06-25] MEDS: QUEtiapine FUMARATE 25 MG TAB PO SCH ×3 (10:11→22:16)
[2018-06-25] MEDS: INSULIN LANTUS 100 UNITS/ML 10 ML VIAL SUBQ SCH ×2 (10:13→23:01)
[2018-06-25] MEDS: INSULIN LISPRO SLIDING SCALE 100 UNITS/ML VIAL SUBQ PRN ×4 (10:14→22:54)
--- NOTE | 2018-06-25 10:15 | NUR ---
FREQUENT ROUNDING ON PT. PT IS AWAKE IN BED REQUESTING TO GET ON THE COMMODE. PT IS UNABLE TO BE PLACED ON THE COMMODE INFORMED HER OF THAT.
[2018-06-25] MEDS: ALBUTEROL SULFATE/IPRATROPIU 3 ML SOL IH PRN (10:44)
--- NOTE | 2018-06-25 10:57 | NUR ---
STRIPPER LATEX CALLED TO BEDSIDE PATIENT PRESENTING WITH INCREASED WOB AT 36 BPM BREATH SOUNDS DIMINISHED AT LEFT SIDE; RALES AT RIGHT SIDE AUDIBLE WHEEZE IN THE UPPER AIRWAY EDUCATION PROVIDED TO PATIENT ON THE BENEFITS OF GOING ON THE BIPAP TO MASK PATIENT ADAMANTLY REFUSED PATIENT STATES "I DON'T WANT IT-NO-I JUST WANT THE BREATHING TREATMENT" [facility] THERAPY AND RESPIRATORY DRUGS GIVEN X 2 YASMANI/RN NOTIFIED BIPAP TO MASK REMAINS AT BEDSIDE
--- NOTE | 2018-06-25 11:00 | NUR ---
POST [facility] THERAPY INCREASED SUPPLEMENTAL OXYGEN TO 3 LPM VIA JOSE LUIS GRUBER/RN NOTIFIED
--- NOTE | 2018-06-25 11:30 | NUR ---
FINGERSTICK GLUCOSE 391. PT REFUSED SLIDING SCALE.
[2018-06-25 12:00] VITALS: BP 129/80
--- NOTE | 2018-06-25 13:50 | NUR ---
FAMILY AT BEDSIDE AWARE OF PT REFUSING MEDICATIONS. PT STATED THAT SHE WOULD TAKE THE MEDICATION. PT ALLOWED FOR 10UNITS OF HUMALOG TO BE ADMINISTERED
--- NOTE | 2018-06-25 14:35 | NUR ---
PT REFUSED FINGER STICK GLUCOSE CHECK.
[2018-06-25 16:00] VITALS: BP 128/45
--- NOTE | 2018-06-25 17:05 | NUR ---
FREQUENT ROUNDING PT STABLE IN BED NO SIGNS OF DISTRESS, NASAL CANULA 3L ALL SAFETY MEASURES ARE IN PLACE. WILL CONTINUE TO MONITOR
--- NOTE | 2018-06-25 19:51 | NUR ---
ENDORSED BILLET HEATER NURSE. PT IN BED STABLE NO APPARENT DISTRESS. ALL SAFETY MEASURES ARE IN PLACE.
--- NOTE | 2018-06-25 19:52 | NUR ---
RECEIVED BEDSIDE REPORT FROM DAY SHIFT RNYASMANI. PATIENT IN STABLE CONDITION. SAFETY MEASURES IN PLACE. WILL CONTINUE TO MONITOR.
[2018-06-25 20:00] VITALS: BP 127/70
[2018-06-25] MEDS: ATORVASTATIN 20 MG TAB PO SCH (22:16)
--- NOTE | 2018-06-25 22:20 | NUR ---
ADMINISTERED SCHEDULED MEDICATIONS. PATIENT REFUSED TO TAKE SEROQUEL. TOOK ALL OTHER MEDICATIONS INCLUDING INSULINS. WILL CONTINUE TO MONITOR PATIENT.
[2018-06-26] VITALS: BP 136/71
--- NOTE | 2018-06-26 00:15 | NUR ---
ASSISTED PATIENT WITH BED MARTIN USE. CLEANED AND REPOSITIONED FOR COMFORT.
--- NOTE | 2018-06-26 02:30 | NUR ---
PATIENT CONFUSED AND TRYING TO GET OUT OF BED. REORIENTED PATIENT AND EXPLAINED THAT SHE IS A FALL RISK AND NEEDS TO STAY IN BED FOR HER SAFETY. PATIENT AGREED AT THIS TIME. REPOSITIONED PATIENT IN BED IN POSITION OF COMFORT. WILL CONTINUE TO MONITOR.
[2018-06-26] MEDS: ALBUTEROL SULFATE/IPRATROPIU 3 ML SOL IH SCH ×6 (02:39→23:09)
[2018-06-26 04:00] VITALS: BP 156/76
--- NOTE | 2018-06-26 05:30 | NUR ---
PATIENT SLEEPING IN BED. SAFETY PRECAUTIONS IN PLACE. WILL CONTINUE TO MONITOR.
[2018-06-26] MEDS: PIPER/TAZO 2.25GM/D5W PREMIX 50 ML IV SCH (05:54)
--- NOTE | 2018-06-26 07:29 | NUR ---
GAVE BEDSIDE REPORT TO DAY SHIFT RN. PATIENT AWAKE AND SHOWING NO SIGNS OF DISTRESS ON BIPAP. ENDORSED TO DAY SHIFT RN FOR CONTINUITY OF CARE. ALL SAFETY PRECAUTIONS IN PLACE.
--- NOTE | 2018-06-26 07:30 | NUR ---
RECEIVED REPORT FROM PLASTERER HELPER, PATIENT RESTING COMFORTABLY, CALL LIGHT WITHIN REACH, WILL CONTINUE TO MONITOR. WILL CHECK BLOOD SUGAR
[2018-06-26 08:00] VITALS: BP 129/76
[2018-06-26] MEDS: BLOOD GLUCOSE MONITORING 1 DEV DEV FS SCH ×4 (08:00→21:41)
--- NOTE | 2018-06-26 08:07 | NUR ---
OFF BIPAP AT NIS TIME ON SUPPLEMENTAL OXYGEN AT 3LPM VIA NC NO SOB NOTED PATIENT WITH BREAKFAST TRAY [facility] THERAPY AND RESPIRATORY DRUGS AT A LATER TIME Addendum: 06/26/18 at 0929 by Joel Dillon RT BIPAP (#9364) TO MASK AT BEDSIDE
[2018-06-26] MEDS: BUDESONIDE 0.5 MG/2 ML NEBU INH SCH ×2 (09:15→20:45)
[2018-06-26] MEDS: CALCITRIOL 0.25 MCG CAPLF PO SCH (09:33)
[2018-06-26] MEDS: ASPIRIN 81 MG TAB.CHEW PO SCH (09:33)
[2018-06-26] MEDS: LACTOBACILLUS RHAMNOSUS GG 1 EACH CAP PO SCH (09:33)
[2018-06-26] MEDS: CARVEDILOL 12.5 MG TAB PO SCH ×2 (09:33→21:36)
[2018-06-26] MEDS: FAMOTIDINE 20 MG TAB PO SCH (09:33)
[2018-06-26] MEDS: FUROSEMIDE 40 MG TAB PO SCH (09:34)
[2018-06-26] MEDS: ASCORBIC ACID 500 MG TAB PO SCH (09:34)
[2018-06-26] MEDS: ALLOPURINOL 100 MG TAB PO SCH (09:34)
[2018-06-26] MEDS: QUEtiapine FUMARATE 25 MG TAB PO SCH ×2 (09:35→21:36)
[2018-06-26] MEDS: methylPREDNISolone SS 40 MG/ML VIAL IVP SCH ×2 (09:35→21:33)
[2018-06-26] MEDS: DOCUSATE SODIUM 100 MG GELCAP PO SCH ×2 (09:35→21:36)
[2018-06-26] MEDS: INSULIN LANTUS 100 UNITS/ML 10 ML VIAL SUBQ SCH ×2 (09:42→21:30)
--- NOTE | 2018-06-26 10:05 | NUR ---
PT REFUSED TO BE REPOSITIONED. EXPLAINED THE BENEFITS AND RISKS, PT STILL REFUSING.
[2018-06-26] MEDS ORDERED: FURO-570 PO (10:45)
[2018-06-26] MEDS ORDERED: METH4TAB3 PO (10:45)
[2018-06-26] MEDS ORDERED: QUET25TA PO ×2 (10:45)
[2018-06-26] MEDS ORDERED: INSU100S22 SUBQ (10:45)
--- NOTE | 2018-06-26 11:17 | NUR ---
PT SITTING ON EDGE OF BED. ATE 2 JELLOS. PT STATES FEELS SOB, CHECKED O2 SAT, WAS 97%. WILL CONTACT RT FOR SCHEDULED BREATHING TX AT 1100. CALL LIGHT WITHIN REACH, WILL CONTINUE TO MONITOR.
--- NOTE | 2018-06-26 11:19 | NUR ---
PT NOT IN RESPIRATORY DISTRESS, NO LABORED BREATHING, ABLE TO TAKE A DEEP BREATHE, O2 97%
[2018-06-26 12:00] VITALS: BP 171/90
--- NOTE | 2018-06-26 12:01 | NUR ---
PT REFUSED ACCU CHECK AT THIS TIME. WILL ASK PT AGAIN LATER.
--- NOTE | 2018-06-26 13:25 | NUR ---
PT WANTS THE BIPAP, CALLED RT DARBY AND MADE HIM AWARE.
[2018-06-26] MEDS: INSULIN LISPRO SLIDING SCALE 100 UNITS/ML VIAL SUBQ PRN ×3 (13:51→21:33)
--- NOTE | 2018-06-26 15:02 | NUR ---
[place] [facility] [place] [facility]. PATIENT HAS BEEN THERE SINCE FEBRUARY, AND IN AND OUT OF HOSPITAL. SHE IS THERE FOR PT AND OT. I SPOKE WITH THE SON, ISABELL RG, AND HE WANTS THE PATIENT TO GO BACK [place] [facility] [place]CHARGE. I FAXED INFORMATION TO ALPESH AND SAID WE ARE STILL WAITING FOR THE SPUTUM CULTURE.
--- NOTE | 2018-06-26 15:42 | NUR ---
PLACED PT ON THE BEDSIDE COMMODE USING MAYRA LIFT. PT IS HAVING BM AT THIS, ON O2 3L, NO S/S OF ACUTE DISTRESS
[2018-06-26 16:00] VITALS: BP 149/83
--- NOTE | 2018-06-26 16:00 | NUR ---
PT STILL SITTING ON BEDSIDE COMMODE, PT STATES SHE HAD 1 BM. FEELS BETTER AFTER BM. PT STATES SHE WANTS TO SIT ON BEDSIDE COMMODE FOR A LITTLE WHILE MORE, CALL LIGHT WITHIN REACH, WILL CONTINUE TO MONITOR
--- NOTE | 2018-06-26 19:30 | NUR ---
ENDORSED PT TO EGG BREAKING MACHINE OPERATOR RN. PT IN STABLE CONDITION.
--- NOTE | 2018-06-26 19:35 | NUR ---
RECEIVED REPORT FROM DAY SHIFT NURSE. PT IS ON BEDSIDE COMMODE. ASSISTED PT BACK TO BED X 3 PERSONS ASSIST . NO C/O PAIN OR SOB. ON O2 AT 3L/MIN VIA NC. SKIN INTACT. IV TO RIGHT HAND #22G, PATENT AND INTACT. DISCUSSED PLAN OF CARE, PT VERBALIZED UNDERSTANDING. SAFETY PRECAUTION IN PLACE. CALL LIGHT WITHIN REACH.
[2018-06-26 20:00] VITALS: BP 131/78
[2018-06-26] MEDS: ATORVASTATIN 20 MG TAB PO SCH (21:35)
--- NOTE | 2018-06-26 22:00 | NUR ---
PT CLEANSED AND CHANGED. REPOSITIONED FOR COMFORT. NEEDS MET AT THIS TIME.
--- NOTE | 2018-06-26 23:01 | NUR ---
PLACED PT ON BIPAP [id number] EPAP 6 RR 12 FIO2 AT 35%. PT SATS ON BIPAP ARE 100% AT THIS TIME. NO SOB NOTED
[2018-06-27] VITALS: BP 150/77
--- NOTE | 2018-06-27 00:15 | NUR ---
PT REFUSED THOMAS CATH TO BE REMOVED AT THIS TIME. PER PT, SHE WANTS TO SLEEP AND JUST REMOVE THE THOMAS CATH LATER.
--- NOTE | 2018-06-27 01:00 | NUR ---
PT SLEEPING. ON BIPAP. PT KEPT CLEAN, DRY AND COMFORTABLE. SAFETY PRECAUTION IN PLACE. CALL LIGHT WITHIN REACH.
[2018-06-27] MEDS: ALBUTEROL SULFATE/IPRATROPIU 3 ML SOL IH SCH ×5 (03:10→19:33)
--- NOTE | 2018-06-27 03:15 | NUR ---
PT HAVING BREATHING TREATMENT AT THIS TIME. RT AT BEDSIDE. NO RESP DISTRESS NOTED.
[2018-06-27 04:00] VITALS: BP 155/67
--- NOTE | 2018-06-27 04:36 | NUR ---
PATIENT TAKEN OFF BIPAP BY RN AND PLACED BACK ON 3LNC. PT IS DONE WEARING THE BIPAP
--- NOTE | 2018-06-27 06:00 | NUR ---
PT REFUSED BLOOD SUGAR CHECK. DR. KUMAR IN THE PT'S ROOM, MADE AWARE. THOMAS CATH REMOVED. PT DENIES PAIN.
[2018-06-27] MEDS: BLOOD GLUCOSE MONITORING 1 DEV DEV FS SCH ×4 (06:14→20:00)
[2018-06-27] MEDS: BUDESONIDE 0.5 MG/2 ML NEBU INH SCH ×2 (07:05→19:32)
--- NOTE | 2018-06-27 07:05 | NUR ---
ENDORSED PT TO DAY SHIFT NURSE. PT IN STABLE CONDITION.
[2018-06-27 07:21] LABS: BASOPHILS % (AUTO) 0.1 % (0.0-2.0); EOSINOPHILS % (AUTO) 0.2 % (0.0-4.0); HEMOGLOBIN 9.3 g/dL (12.0-16.0); LYMPHOCYTES # (AUTO) 1.1 K/uL (2.5-16.5); LYMPHOCYTES % (AUTO) 12.5 % (20.5-51.1); MEAN CORPUSCULAR HEMOGLOBIN 23 pg (27-31); MEAN CORPUSCULAR HGB CONC 31 g/dL (33-37); MEAN CORPUSCULAR VOLUME 74.5 fL (80-94); MONOCYTES # (AUTO) 0.4 K/uL (0.8-1.0); MONOCYTES % (AUTO) 4.7 % (1.7-9.3); NEUTROPHILS # (AUTO) 7.4 K/uL (1.8-7.7); NEUTROPHILS % (AUTO) 82.5 % (42.2-75.2); PLATELET COUNT (AUTO) 285 K/uL (140-450); RED BLOOD CELL COUNT(AUTO) 4.02 MIL/uL (4.20-5.40)
[2018-06-27 07:29] LABS: ANION GAP 7.4 (8-16); CARBON DIOXIDE 33.4 mmol/L (21-32); CREATININE 1.9 mg/dL (0.6-1.3); POTASSIUM 4.8 mmol/L (3.5-5.1)
[2018-06-27 07:30] LABS: MAGNESIUM 2.2 mg/dL (1.8-2.4); PHOSPHORUS 3.9 mg/dL (2.5-4.9)
[2018-06-27] MEDS: INSULIN LISPRO SLIDING SCALE 100 UNITS/ML VIAL SUBQ PRN ×4 (07:48→20:13)
[2018-06-27 08:00] VITALS: BP 164/86
--- NOTE | 2018-06-27 08:20 | NUR ---
RECEIVED REPORT FROM CLINICAL TECHNICIAN, PT WAS IN SITTING IN BED WITH DISTILLERY WORKER GENERAL FROM [facility], RESTING COMFORTABLY, CALL LIGHT WITHIN REACH, WILL CONTINUE TO MONITOR Addendum: 06/27/18 at 1700 by Alfonso Zamora RN TIME WAS AT 0730
[2018-06-27] MEDS: ASCORBIC ACID 500 MG TAB PO SCH (08:53)
[2018-06-27] MEDS: ASPIRIN 81 MG TAB.CHEW PO SCH (08:54)
[2018-06-27] MEDS: CALCITRIOL 0.25 MCG CAPLF PO SCH (08:54)
[2018-06-27] MEDS: CARVEDILOL 12.5 MG TAB PO SCH ×2 (08:54→20:07)
[2018-06-27] MEDS: LACTOBACILLUS RHAMNOSUS GG 1 EACH CAP PO SCH (08:55)
[2018-06-27] MEDS: FAMOTIDINE 20 MG TAB PO SCH (08:55)
[2018-06-27] MEDS: FUROSEMIDE 40 MG TAB PO SCH (08:55)
[2018-06-27] MEDS: ALLOPURINOL 100 MG TAB PO SCH (08:56)
[2018-06-27] MEDS: QUEtiapine FUMARATE 25 MG TAB PO SCH ×2 (08:56→20:07)
[2018-06-27] MEDS: DOCUSATE SODIUM 100 MG GELCAP PO SCH ×2 (08:58→20:07)
[2018-06-27] MEDS ORDERED: methylPREDNISolone SS 40 MG/ML VIAL IVP SCH (09:00)
[2018-06-27] MEDS: INSULIN LANTUS 100 UNITS/ML 10 ML VIAL SUBQ SCH ×2 (09:07→20:11)
--- NOTE | 2018-06-27 09:10 | NUR ---
FAXED [facility] CULTURE [place] [facility] [place] [phone]
--- NOTE | 2018-06-27 10:00 | NUR ---
PT RESTING COMFORTABLY IN BED, ON SPO2 MONITOR, LOOSE HAND PACKER FROM [facility] SAW PT TAKE OUT NC, SPO2 WENT DOWN TO 80%, STUDENT PUT NC BACK ON, CURRENT SPO2 99%, WILL EDUCATE PT TO KEEP NC ON, WILL CONTINUE TO MONITOR.
--- NOTE | 2018-06-27 11:11 | NUR ---
FAXED ORDER E[place]LIER [place] [facility] [place]. PATIENT DOES NOT NEED ISOLATION. I SPOKE WITH ALPESH AT [facility] [place]. PATIENT CAN GO TO ROOM 14C UNDER DR. FERREIRA ANYTIME. PHONE [phone] I CALLED THE SON, ISABELL RG, AND INFORMED HIM. HE SAID HE WOULD BE RESPONSIBLE FOR TRANSPORT, [facility]. I INFORMED [facility]. I CALLED [facility] AND SET UP BARIATRIC GURNEY TRANSPORT FOR 3:30 PM. PHONE [facility] [phone]. I CALLED THE FLOOR AND SPOKE WITH JOÃO WOODWARD AND INFORMED HER.
[2018-06-27 12:00] VITALS: BP 141/76
--- NOTE | 2018-06-27 12:30 | NUR ---
PT SLEEPING, LUNCH TRAY AT BEDSIDE, CALL LIGHT WITHIN REACH, WILL CONTINUE TO MONITOR
--- NOTE | 2018-06-27 14:16 | NUR ---
SPOKE TO [facility] RN JASMINE GALE RN AND GAVE REPORT ON PT. PT WILL BE PICKED UP VIA BARIATRIC GURNEY AT 1530. PT IS SLEEPING, CALL LIGHT WITHIN REACH, STILL ON SPO2 MONITOR, SPO2 97% IN NO RESPIRATORY DISTRESS
--- NOTE | 2018-06-27 15:30 | NUR ---
EMT CAME TO PHONE ENGINEER PT, HOWEVER, EMT CAME WITH REGULAR GURNEY HOWEVER PT IS TOO BIG FOR GURNEY. PT WILL BE PICKED UP AT 2100 TONIGHT
[2018-06-27 16:00] VITALS: BP 148/78
--- NOTE | 2018-06-27 17:03 | NUR ---
PT RESTING COMFORTABLY IN BED, CALL LIGHT WITHIN REACH, WILL CONTINUE TO MONITOR
--- NOTE | 2018-06-27 18:21 | NUR ---
PT CHANGED INTO DISCHARGE GOWN WITH DISCHARGE BLANKET UNDERNEATH. PT RESTING COMFORTABLY, CALL LIGHT WITHIN REACH. CALLED [facility] AND NOTIFIED THEM THAT PT WILL BE PICKED UP BY EMT AT 2100 TONIGHT.
--- NOTE | 2018-06-27 18:38 | NUR ---
PT REFUSED TO TAKE NORCO. PT REQUEST 2 TYLENOL PILLS FOR PAIN. WASTER NORCO IN NARCOTIC WASTE BIN. SON AT BEDSIDE.
--- NOTE | 2018-06-27 19:14 | NUR ---
PT ENDORSED TO WOMEN'S MINISTRY DIRECTOR NURSE. SON SIGNING DC PAPERWORK BECAUSE PT REFUSED TO SIGN EARLIER. PT LYING IN BED RESTING COMFORTABLY, IN NO RESPIRATORY DISTRESS, ON 3L NC, ON TELE MONITOR, CALL LIGHT WITHIN REACH
--- NOTE | 2018-06-27 19:16 | NUR ---
RECEIVED BEDSIDE REPORT FROM DAY SHIFT RN. PT IS AAO X3. SON AT BEDSIDE. PT ON NC 3L O2. NO S/S OF RESPIRATORY DISTRESS. PT WITHOUT IV ACCESS. PT IS INCONTINENT. PT TO BE D[place]C BACK [place] [facility] [place] [facility]MIERE ENTERPRISE PROJECT MANAGER SCHEDULED TODAY AT 2100. D/C PAPER DONE AND REPORT GIVEN BY DAY SHIFT NURSE. SAFETY MEASURES ARE IN PLACE. CALL LIGHT WITHIN REACH. WILL CONTINUE TO MONITOR.
[2018-06-27 20:00] VITALS: BP 148/80
[2018-06-27] MEDS ORDERED: predniSONE 20 MG TAB PO SCH (20:00)
[2018-06-27] MEDS: ATORVASTATIN 20 MG TAB PO SCH (20:07)
--- NOTE | 2018-06-27 20:07 | NUR ---
VITAL SIGNS ARE WITHIN NORMAL LIMITS. BLOOD SUGAR 303 8U OF HUMALOG GIVEN. MEKHI CRACKERS AT BEDSIDE. DUE MEDICATIONS GIVEN PT TOLERATED WELL. ALL NEEDS MET AT THIS TIME. PT IS READY TO BE TRANSFERRED. TRANSPORTATION SCHEDULED FOR 2100. CALL LIGHT WITHIN REACH. WILL CONTINUE TO MONITOR.
--- NOTE | 2018-06-27 21:00 | NUR ---
ASSISTED PATIENT WITH BRUSHING HER TEETH. ALL NEEDS MET AT THIS TIME. CALL LIGHT WITHIN REACH. WILL CONTINUE TO MONITOR.
--- NOTE | 2018-06-27 22:22 | NUR ---
GAVE REPORT TO RUTLANDNaina. PT IS AAO X4 ON NC 3L O2. NO IV. SKIN INTACT. PT IS GOING BACK TO [facility] TO ROOM 14C ACCEPTING DR FERREIRA. ALL BELONGINGS WITH PT. TELE MONITOR TAKEN OFF AND ARM BAND REMOVED. PT ENDORSED IN STABLE CONDITION.
== END 2018-06-27 22:22 | DRG 177 ==
LOC: MED 13:40 → MTU 15:53
PROVIDERS: ADMIT General Practice; ATTEND General Practice
PROC: 5A09357 Assistance with Respiratory Ventilation, Less than 24 Consecutive Hours, Continuous Positive Airway Pressure (ICD-10-PCS; principal; 2018-06-24)
DX: J69.0 Pneumonitis due to inhalation of food and vomit (principal); N17.0 Acute kidney failure with tubular necrosis; E43 Unspecified severe protein-calorie malnutrition; I21.4 Non-ST elevation (NSTEMI) myocardial infarction; G93.41 Metabolic encephalopathy; I50.43 Acute on chronic combined systolic (congestive) and diastolic (congestive) heart failure; J96.21 Acute and chronic respiratory failure with hypoxia; J96.22 Acute and chronic respiratory failure with hypercapnia; J44.1 Chronic obstructive pulmonary disease with (acute) exacerbation; Z68.42 Body mass index [BMI] 45.0-49.9, adult; E66.2 Morbid (severe) obesity with alveolar hypoventilation; I13.0 Hypertensive heart and chronic kidney disease with heart failure and stage 1 through stage 4 chronic kidney disease, or unspecified chronic kidney disease; I42.9 Cardiomyopathy, unspecified; N39.0 Urinary tract infection, site not specified; D50.9 Iron deficiency anemia, unspecified; E11.22 Type 2 diabetes mellitus with diabetic chronic kidney disease; E11.65 Type 2 diabetes mellitus with hyperglycemia; E78.5 Hyperlipidemia, unspecified; G47.00 Insomnia, unspecified; M10.9 Gout, unspecified; N18.9 Chronic kidney disease, unspecified; I49.5 Sick sinus syndrome; E02 Subclinical iodine-deficiency hypothyroidism; D64.9 Anemia, unspecified; F29 Unspecified psychosis not due to a substance or known physiological condition; D72.829 Elevated white blood cell count, unspecified; Z86.73 Personal history of transient ischemic attack (TIA), and cerebral infarction without residual deficits; Z91.19 Patient's noncompliance with other medical treatment and regimen; Z95.0 Presence of cardiac pacemaker; Z96.659 Presence of unspecified artificial knee joint; Z88.8 Allergy status to other drugs, medicaments and biological substances; Z88.1 Allergy status to other antibiotic agents; Z91.010 Allergy to peanuts; Z82.49 Family history of ischemic heart disease and other diseases of the circulatory system; Z91.14 Patient's other noncompliance with medication regimen
CPT/HCPCS: 36415; 36600; 71045; 80048; 80053; 80305; 81001; 82150; 82550; 82553; 82803; 82948; 83036; 83540; 83605; 83690; 83735; 83880; 84100; 84439; 84443; 84484; 85025; 85610; 85730; 87040; 87070; 87081; 87086; 87186; 87205; 87804; 89220; 93005; 94640; 94644; 94660; 96365; 96375; 97110; 97116; 97161-GP; 97530; 99285; J0696; J1630; J1644; J1815; J2543; J2916; J2920; J2930; J7030; J7512; J7613; J7620; J7626; Q0092

== ENCOUNTER 2018-08-27 19:33 | Emergency (ER) | payer OTHER ==
[~2018-08-27] VITALS: Ht 157.5 cm; Wt 81.6 kg
[~2018-08-27 19:33] MED LIST changes: -CRAN425C8 PO; -DOCU-299 PO; -FERR325E14 PO; +INSU100S22 SUBQ; -LANTUS SUBQ; -MERO500P2 IV; +METH4TAB3 PO; +QUET25TA PO; -SENN-72 PO
--- NOTE | 2018-08-27 19:35 | NUR ---
BIBA TO ER BED 5
[2018-08-27 19:36] VITALS: BP 103/39
--- NOTE | 2018-08-27 19:40 | NUR ---
PT BIBA C/O LOW HEART RATE. REPORT FROM [facility] CHECKED PT HEART RATE VIA PULSE OX AND HR WAS IN THE 30S, UPON ARRIVAL OF [facility] HR WAS PACING IN THE 70S. PT ACTING APPROPRIATLY TO BASELINE, BREATHING EQUAL AND UNLABORED. PT ATTACHED TO BEDSIDE DESIGN CELL ENGINEER, HR IN THE 70S. PT STATES 0/10 PAIN. STRONG HAND PLACEMENT ASSISTANT BL, SKIN WARM AND DRY. ERMD AWARE OF PT STATUS, WILL CONTINUE TO MONITOR.
--- NOTE | 2018-08-27 19:50 | NUR ---
EKG BEING PERFORMED AT BEDSIDE BY EMT.
--- NOTE | 2018-08-27 19:50 | NUR ---
EKG PERFORMED AT BEDSIDE WITH RN ASSISTANCE
[2018-08-27] MEDS ORDERED: DOCU-299 PO (20:00)
[2018-08-27] MEDS ORDERED: LACT10SO1 PO (20:00)
[2018-08-27] MEDS ORDERED: ESCI10TA PO (20:00)
[2018-08-27] MEDS ORDERED: FERR325E14 PO (20:00)
[2018-08-27] MEDS ORDERED: SLIDE SUBQ (20:00)
[2018-08-27 20:04] LABS: BASOPHILS % (AUTO) 0.6 % (0.0-2.0); EOSINOPHILS # (AUTO) 0.3 K/uL (0-0.4); EOSINOPHILS % (AUTO) 5.9 % (0.0-4.0); HEMATOCRIT 33.5 % (36-48); HEMOGLOBIN 10.3 g/dL (12.0-16.0); LYMPHOCYTES # (AUTO) 1.4 K/uL (2.5-16.5); MEAN CORPUSCULAR HEMOGLOBIN 23 pg (27-31); MEAN CORPUSCULAR HGB CONC 31 g/dL (33-37); MEAN CORPUSCULAR VOLUME 74.7 fL (80-94); MONOCYTES # (AUTO) 0.6 K/uL (0.8-1.0); MONOCYTES % (AUTO) 13.2 % (1.7-9.3); NEUTROPHILS # (AUTO) 2.1 K/uL (1.8-7.7); NEUTROPHILS % (AUTO) 48.3 % (42.2-75.2); PLATELET COUNT (AUTO) 208 K/uL (140-450); RED BLOOD CELL COUNT(AUTO) 4.49 MIL/uL (4.20-5.40); RED CELL DISTRIBUTION WIDTH 21.8 % (11.6-13.7); WHITE BLOOD COUNT (AUTO) 4.4 K/uL (4.8-10.8)
[2018-08-27 20:15] LABS: ANION GAP 10.1 (8-16); CARBON DIOXIDE 32.5 mmol/L (21-32); CREATININE 2.4 mg/dL (0.6-1.3); POTASSIUM 4.6 mmol/L (3.5-5.1)
--- NOTE | 2018-08-27 20:15 | NUR ---
INTERIGATING PACEMAKER AT BEDSIDE AT THIS TIME. PT SON AT BEDSIDE.
[2018-08-27 20:20] LABS: ALBUMIN 2.7 g/dL (3.4-5.0); TOTAL BILIRUBIN 0.3 mg/dL (0.0-1.0)
--- NOTE | 2018-08-27 20:20 | NUR ---
PT ACTING APPROPRIATLY, FOLLOW COMMANDS. STATES 0/10 PAIN, ALERT AND ORIENTED TO BASELINE.
--- NOTE | 2018-08-27 20:55 | NUR ---
CALL FROM ARSH Lopez/ [employer], REPORT FROM PACEMAKERS SHOWS A WIRED ON THE DEFIBULATOR IS RECALLED; STATES THAT IT WOULD BE UP TO THE PT SCHOOL PROGRAM DIRECTOR TO DETERMINE HOW TO FIX TO WIRE. ERMD AWARE. --DR. BRENNER IS MEDICALLY DISCHARGING PT AT THIS TIME, CALL NEEDS TO BE PLACED TO [facility] THAT PT NEEDS TO FOLLOW UP W/ PRIMARY CARDIOLOGIEST [facility].
--- NOTE | 2018-08-27 21:04 | NUR ---
REPORT PROVIDED TO SUSAN AT [facility] THAT PT IS BEING MEDICALLY DISCHARGED, CLARKE IS REQUESTING THAT PT IS BE FOLLOWED UP W/ ELECTROTYPE FINISHER [facility]. ETA IS 45 MIN FOR [facility] TO [facility].
--- NOTE | 2018-08-27 21:30 | NUR ---
PT ACTING APPROPRIATLY, COOPERATIVE AND ALERT. PT STATES 0/10 PAIN. HR 78.
[2018-08-27 22:00] VITALS: BP 113/48
--- NOTE | 2018-08-27 22:00 | NUR ---
[facility] AT BEDSIDE REPORT PROVIDED TO LYNN. PT ACTING APPROPRIALT AND VSS AT THIS TIME.
--- NOTE | 2018-08-27 22:00 | NUR ---
Patient discharged with v/s stable. Written and verbal after care instructions given and explained. Patient verbalized understanding. Ambulance Transport to long-term. All questions addressed prior to discharge. Advised to follow up with PMD.
== END 2018-08-27 22:00 ==
LOC: MED 19:33
DX: E11.22 Type 2 diabetes mellitus with diabetic chronic kidney disease (principal); I12.9 Hypertensive chronic kidney disease with stage 1 through stage 4 chronic kidney disease, or unspecified chronic kidney disease; N18.9 Chronic kidney disease, unspecified; D53.9 Nutritional anemia, unspecified; J44.9 Chronic obstructive pulmonary disease, unspecified; G40.909 Epilepsy, unspecified, not intractable, without status epilepticus; K21.9 Gastro-esophageal reflux disease without esophagitis; Z45.010 Encounter for checking and testing of cardiac pacemaker pulse generator [battery]; Z79.4 Long term (current) use of insulin; Z86.79 Personal history of other diseases of the circulatory system; Z98.890 Other specified postprocedural states; Z79.82 Long term (current) use of aspirin; Z79.899 Other long term (current) drug therapy; Z88.8 Allergy status to other drugs, medicaments and biological substances; Z88.1 Allergy status to other antibiotic agents; Z91.010 Allergy to peanuts
CPT/HCPCS: 36415; 80053; 85025; 93005; 99284

== ENCOUNTER 2019-03-28 02:49 | Inpatient (IN) | payer OTHER ==
[~2019-03-28] VITALS: Ht 165.1 cm; Wt 122.5 kg
[~2019-03-28 02:49] MED LIST changes: +DOCU-299 PO; +ESCI10TA PO; +FERR325E14 PO; +LACT10SO1 PO; -METH4TAB3 PO; +SLIDE SUBQ
[2019-03-28] MEDS ORDERED: methylPREDNISolone SS 125 MG in WATER STERILE 2 ML IV ONE (03:20)
[2019-03-28] MEDS ORDERED: ALBUTEROL SULFATE/IPRATROPIU 3 ML SOL IH ONE ×2 (03:20→03:35)
[2019-03-28] MEDS ORDERED: MAG SULF 2000 MG/WATER PREMIX 50 ML IV ONE (03:20)
[2019-03-28 03:40] LABS: BASOPHILS % (AUTO) 0.2 % (0.0-2.0); EOSINOPHILS # (AUTO) 0.1 K/uL (0-0.4); EOSINOPHILS % (AUTO) 1.6 % (0.0-4.0); HEMATOCRIT 34.3 % (36-48); HEMOGLOBIN 10.6 g/dL (12.0-16.0); LYMPHOCYTES # (AUTO) 0.2 K/uL (2.5-16.5); MEAN CORPUSCULAR HEMOGLOBIN 25 pg (27-31); MEAN CORPUSCULAR HGB CONC 31 g/dL (33-37); MEAN CORPUSCULAR VOLUME 79.2 fL (80-94); MONOCYTES # (AUTO) 0.7 K/uL (0.8-1.0); MONOCYTES % (AUTO) 9.5 % (1.7-9.3); NEUTROPHILS # (AUTO) 6.5 K/uL (1.8-7.7); NEUTROPHILS % (AUTO) 86.2 % (42.2-75.2); PLATELET COUNT (AUTO) 148 K/uL (140-450); RED BLOOD CELL COUNT(AUTO) 4.33 MIL/uL (4.20-5.40); WHITE BLOOD COUNT (AUTO) 7.5 K/uL (4.8-10.8)
[2019-03-28 03:49] LABS: ANION GAP 13.1 (8-16); CREATININE 1.6 mg/dL (0.6-1.3); POTASSIUM 4.1 mmol/L (3.5-5.1)
--- NOTE | 2019-03-28 03:50 | NUR ---
65 Y/O FEMALE BIBA C/O SOB. PER EMS PT IS CONFUSED. DENIES N/V/D. ABD SOFT, ROUND, NONTENDER TO PALP. BOWEL SOUNDS PRESENT X 4 QUAD. PT SITTING IN BED POSITIONED FOR COMFORT. VSS. MEDHX: COPD, DM, HTN ALLERGIES: ATROPINE, LEVOFLOXACIN, PEANUT
[2019-03-28 03:53] LABS: LYMPHOCYTES % (AUTO) 2.5 % (20.5-51.1)
[2019-03-28 03:54] LABS: ALBUMIN 3.3 g/dL (3.4-5.0); TOTAL BILIRUBIN 0.3 mg/dL (0.0-1.0)
[2019-03-28] MEDS ORDERED: MEROPENEM 500 MG in NACL 0.9% 100 ML IV ONE (04:00)
[2019-03-28] MEDS ORDERED: VANCOMYCIN 1,000 MG in DEXTROSE 5% 250 ML IV ONE (04:00)
[2019-03-28] MEDS ORDERED: methylPREDNISolone SS 125 MG/2 ML VIAL ONE (04:45)
[2019-03-28] MEDS ORDERED: ONDANSETRON 4 MG/2 ML VIAL IM/IVP PRN (04:50)
[2019-03-28] MEDS ORDERED: ACETAMINOPHEN 325 MG TAB PO PRN (04:50)
[2019-03-28] MEDS ORDERED: DOCUSATE SODIUM 100 MG GELCAP PO PRN (04:50)
--- NOTE | 2019-03-28 05:15 | NUR ---
PT HAS EYES CLOSED, RESPIRATIONS EVEN AND UNLABORED, CHEST RISE IS SYMMETRICAL. VSS. WILL CONTINUE TO MONTIOR.
[2019-03-28] MEDS ORDERED: ALBUTEROL SULFATE/IPRATROPIU 3 ML SOL IH PRN (05:45)
[2019-03-28] MEDS ORDERED: MEROPENEM 500 MG VIAL IV ONE (06:29)
--- NOTE | 2019-03-28 06:48 | NUR ---
RESTING WITH EYES CLOSED, VISIBLE RISE AND FALL OF THE CHEST. AROUSABLE TO NAME. PT REMAINS ON THE MONITOR. VSS. WILL CONTINUE TO MONITOR.
[2019-03-28 07:17] VITALS: BP 127/77
--- NOTE | 2019-03-28 07:17 | NUR ---
UNABLE TO START VANCOMYCIN, OTHER ANTIOBIOTIC CURRENTLY INFUSING. MICHELLE DALEY MADE AWARE. CALLED RESIDENTS TO DISCUSS MED ORDER.
--- NOTE | 2019-03-28 07:17 | NUR ---
Patient will be admitted to care of DR JAIME. Admited to TELEMETRY. Will go to room 107 B. Belongings list completed. Report to MICHELLE DALEY.
--- NOTE | 2019-03-28 07:17 | NUR ---
MESSAGED RESIDENTS REGARDING MEDICATION ORDER.
--- NOTE | 2019-03-28 07:17 | NUR ---
PT ARRIVED UNIT VIA [facility] ACCOMPANIED BY ER NURSE JOE. ASSISTED TO TRANSFER PT FROM [facility] TO BED AND POSITIONED COMFORTABLY. PT IS AAOX2 TO NAME AND PLACE. RESPIRATION EVEN AND UNLABORED ON 2LPM VIA [place]. DENIED PAIN,SOB, AND DIZZINESS AT THIS TIME. NO SIGNS OF DISTRESS NOTED. IV ON R HAND 20G, WARP AROUND WITH KELEX, CLEAN AND INTACT, INFUSING MERREM AT THIS TIME. SKIN CLEAN AND DRY. PT IS INCONTINENT AND BEDREST DUE TO WEAK GAIT. ORIENTED PT TO THE ROOM, AND DEMONSTRATED TO PT ON HOW TO USE THE CALL LIGHT, LIGHT, TV, BED REMOTE, AND TELEPHONE. REINFORCEMENT NEEDED DUE TO PT'S MENTAL STATUS AT THIS TIME. MRSA NARES COLLECTED. TELE MONITOR ATTACHED. SAFETY MEASURES IN PLACE. BED IN LOW POSITION AND CALL LIGHT WITHIN REACH. FALL RISK PROTOCOL INITIALED AND BED ALARM ACTIVATED. INSTRUCTED PT TO USE THE CALL LIGHT FOR ANY ASSISTANCE AND PT WAS AWARE.
[2019-03-28 07:19] LABS: PROTHROMBIN TIME 9.7 secs (10.8-13.4)
[2019-03-28] MEDS: ALBUTEROL SULFATE/IPRATROPIU 3 ML SOL IH SCH ×3 (07:23→19:02)
--- NOTE | 2019-03-28 07:35 | NUR ---
PATIENT ATTEMPTED TO GET OUT OF BED AND BED ALARM WENT OFF. ATTENDED TO BED ALARM AND INSTRUCTED PT NOT TO GET OUT OF BED BY HERSELF AND FOR HER SAFETY, PT SAID "I WANT TO GET OUT, AND I CANT STAY ON BED ALL DAY LONG." ASSISTED PT TO GET BACK ON BED AND ELEVATED BED IN HIGH [place]. REACTIVATED BED ALARM AND INSTRUCTED PT TO USE THE CALL LIGHT FOR ANY ASSISTANCE.
[2019-03-28] MEDS: NACL 0.9% 1,000 ML IV SCH (08:00)
--- NOTE | 2019-03-28 08:00 | NUR ---
STARTED IVF PER MD ORDER, STRICT I&O ENFORCED AND SIGN POSTED BY DOOR. PT IS RESTING ON BED. NO SIGNS OF DISTRESS NOTED. TELE MONITOR ATTACHED. FALL RISK PROTOCOL IN PLACE AND BED ALARM ACTIVATED. BED IN LOW POSITION AND CALL LIGHT WITHIN REACH. INSTRUCTED PT TO USE THE CALL LIGHT FOR ANY ASSISTANCE AND PT SAID OK.
[2019-03-28 08:39] LABS: CHOL/HDL RATIO 4.2 (1-4.5); MAGNESIUM 1.9 mg/dL (1.8-2.4); PHOSPHORUS 3.6 mg/dL (2.5-4.9); THYROID STIMULATING HORMONE 1.81 uIU/mL (0.34-3.74)
[2019-03-28] MEDS ORDERED: DEXTROSE 50% 50 ML SYR IVP PRN (09:00)
--- NOTE | 2019-03-28 09:03 | NUR ---
ASSISTED TALENT MANAGEMENT MANAGER TO CLEAN AND CHANGE PT, PT HAD ONE LARGE SOFT BROWN BM. CHANGED PT INTO YELLOW GOWN, SOCK, AND WRIST. APPLIED ALLERGY RED WRIST BAND. PT TOLERATED WELL. FALL RISK PROTOCOL IN PLACE AND BED ALARM ACTIVATED. TELE MONITOR ATTACHED. SAFETY MEASURES IN PLACE. BED IN LOW POSITION AND CALL LIGHT WITHIN REACH.
--- NOTE | 2019-03-28 09:20 | NUR ---
EXPLAINED TO PT THAT URINE SAMPLE IS NEEDED AND INSTRUCTED PT TO CALL FOR BEDPAN. PT SAID "OK, I KNOW I KNOW." SIGN POSTED ON DOOR. PT IS RESTING ON BED. TELE MONITOR ATTACHED. NO SIGNS OF DISTRESS NOTED. SAFETY MEASURES IN PLACE. BED ALARM ACTIVATED.
[2019-03-28] MEDS: ASCORBIC ACID 500 MG TAB PO SCH (10:13)
[2019-03-28] MEDS: FERROUS SULFATE 325 MG TABEC PO SCH (10:13)
[2019-03-28] MEDS: ASPIRIN 81 MG TAB.CHEW PO SCH (10:13)
[2019-03-28] MEDS: CHOLECALCIFEROL 1,000 IU TAB PO SCH (10:14)
[2019-03-28] MEDS: traMADol 50 MG TAB PO SCH ×2 (10:14→21:25)
[2019-03-28] MEDS: DOCUSATE SODIUM 100 MG GELCAP PO SCH ×2 (10:14→21:25)
[2019-03-28] MEDS: QUEtiapine FUMARATE 25 MG TAB PO SCH (10:15)
[2019-03-28] MEDS: FAMOTIDINE 20 MG TAB PO SCH (10:15)
[2019-03-28] MEDS: CALCITRIOL 0.25 MCG CAPLF PO SCH (10:15)
[2019-03-28] MEDS: LACTOBACILLUS RHAMNOSUS GG 1 EACH CAP PO SCH (10:15)
[2019-03-28] MEDS: ESCITALOPRAM 20 MG TAB PO SCH (10:16)
[2019-03-28] MEDS: ALLOPURINOL 100 MG TAB PO SCH (10:16)
[2019-03-28] MEDS: CARVEDILOL 12.5 MG TAB PO SCH ×2 (10:16→18:01)
--- NOTE | 2019-03-28 10:16 | NUR ---
CHECKED BP ON R HAND PRIOR TO MEDS ADMINISTRATION, BP 132/66 PULSE 97. ADMINISTERED MEDS PER MD ORDER, MED ED PROVIDED TO PT AND PT VERBALIZED OK. PT TOLERATED MEDS WELL. NO SIGNS OF DISTRESS NOTED. SPO2 IS 95% WITH 2LPM VIA NC. TELE MONITOR ATTACHED. SAFETY MEASURES IN PLACE. BED IN LOW POSITION AND CALL LIGHT WITHIN REACH. BED ALARM ACTIVATED.
--- NOTE | 2019-03-28 11:30 | NUR ---
PT REFUSED TO LAY ON BED. SHE PREFERRED TO KEEP HER LEGS DANGLING AT BEDSIDE. EDUCATED PT ON THE SAFETY AND PT SAID "OK, I KNOW. I WONT FAIL OUT OF BED." SPO2 MONITOR BY BEDSIDE AND AT 98% WITH 2LPM VIA NC. NO SIGNS OF DISTRESS NOTED. TELE MONITOR ATTACHED. SAFETY MEASURES IN PLACE.
[2019-03-28 12:00] VITALS: BP 130/70
[2019-03-28] MEDS: INSULIN LISPRO SLIDING SCALE 100 UNITS/ML VIAL SUBQ PRN ×4 (12:09→23:05)
[2019-03-28] MEDS: PIPERACILLIN/TAZOBACTAM 3.375 GM in DEXTROSE 5% 50 ML IV SCH ×2 (12:10→17:56)
[2019-03-28] MEDS: BLOOD GLUCOSE MONITORING 1 DEV DEV FS SCH ×3 (12:10→21:24)
--- NOTE | 2019-03-28 12:10 | NUR ---
PT RECEIVED HER LUNCH TRAY, ADMINISTERED 2 UNITS OF HUMALOG FOR BLOOD GLUCOSE 191, AND ADMINISTERED ZOSYN VIA IVPB, MEDS EDUCATION PROVIDED TO PT AND REINFORCEMENT NEEDED. ASSISTED PT TO SIT UP AND EAT DINNER. SPO2 AT 99% WITH 2LPM VIA NC. DENIED SOB, PAIN AND DIZZINESS. NO SIGNS OF DISTRESS NOTED. TELE MONITOR ATTACHED. SAFETY MEASURES IN PLACE. BED ALARM ACTIVATED.
[2019-03-28] MEDS: methylPREDNISolone SS 125 MG/2 ML VIAL IVP SCH ×2 (13:20→21:25)
--- NOTE | 2019-03-28 13:20 | NUR ---
ADMINISTERED METHYLPREDNISOLONE VIA IVP PER MD ORDER, MED ED PROVIDED TO PT AND REINFORCEMENT NEEDED. PT IS RESTING ON BED. RESPIRATION EVEN AND UNLABORED ON 2LM VIA NC, SPO2 AT 94% AT THIS TIME. NO SIGNS OF DISTRESS NOTED. TELE MONITOR ATTACHED. SAFETY MEASURES IN PLACE. BED ALARM ACTIVATED.
--- NOTE | 2019-03-28 13:41 | NUR ---
RECEIVED A CALL BACK FROM ROSEMARIE AGUDELO FROM [facility] REGARDING PT'S VACCINATION STATUS. PER ROSEMARIE, PT REFUSED BOTH VACCINATION LAST YEAR.
--- NOTE | 2019-03-28 15:28 | NUR ---
ASSISTED CORRUGATED SHEET MATERIAL SHEETER TO CLEAN AND REPOSITIONED PT, PT TOLERATED WELL. PT IS RESTING ON BED, RESPIRATION EVEN AND UNLABORED ON 2LPM VIA NC, SPO2 AT 95%. DENIED PAIN, SOB, AND DIZZINESS. NO SIGNS OF DISTRESS NOTED. TELE MONITOR ATTACHED. SAFETY MEASURES IN PLACE. BED IN LOW POSITION AND CALL LIGHT WITHIN REACH. FALL RISK PROTOCOL IN PLACE AND BED ALARM ACTIVATED.
[2019-03-28 16:00] VITALS: BP 135/70
--- NOTE | 2019-03-28 16:35 | NUR ---
PT REQUESTED CRANBERRY JUICE, PROVIDED. PT AWAKE AND RESTING ON BED. NO SIGNS OF DISTRESS NOTED. TELE MONITOR ATTACHED. SAFETY MEASURES IN PLACE. BED ALARM ACTIVATED.
--- NOTE | 2019-03-28 17:30 | NUR ---
PT IS SITTING UP ON BED AND WATCHING TV AT THIS TIME. DENIED SOB, DIZZINESS, AND PAIN. RESPIRATION EVEN AND UNLABORED ON 2LPM VIA NC. NO SIGNS OF DISTRESS NOTED. TELE MONITOR ATTACHED. SAFETY MEASURES IN PLACE. BED ALARM ACTIVATED.
--- NOTE | 2019-03-28 18:01 | NUR ---
CHECKED BP PRIOR TO MEDS ADMINISTER, BP 135/70, PULSE 89, ADMINISTERED SCHEDULED MEDS PER MD ORDER, MEDS EDUCATION PROVIDED AND REINFORCEMENT NEEDED. PT AWAKE AND WATCHING TV ON BED AT THIS TIME. DENIED PAIN, SOB, AND DIZZINESS. NO SIGNS OF DISTRESS NOTED. TELE MONITOR ATTACHED. SAFETY MEASURES IN PLACE. BED ALARM ACTIVATED.
--- NOTE | 2019-03-28 18:35 | NUR ---
PT IS EATING DINNER AND TALKING TO DAUGHTER IN [place] BY BEDSIDE. NO SIGNS OF DISTRESS NOTED. TELE MONITOR ATTACHED. SAFETY MEASURES IN PLACE. BED ALARM ACTIVATED.
--- NOTE | 2019-03-28 18:40 | NUR ---
DR PANTOJA IS ASSESSING AND TALKING TO PT AT BEDSIDE. NO SIGNS OF DISTRESS NOTED. TELE MONITOR ATTACHED. SAFETY MEASURES IN PLACE. BED ALARM ACTIVATED.
[2019-03-28] MEDS ORDERED: ACETYLCYSTEINE 10% (100 MG/ML) 100 MG/ML VIAL INH PRN (18:50)
--- NOTE | 2019-03-28 19:48 | NUR ---
PT IS RESTING ON BED AT THIS TIME. RESPIRATION EVEN AND UNLABORED ON 2LPM VIA NC, SPO2 AT 95% AT THIS TIME. DENIED PAIN, SOB AND DIZZINESS. PT REQUESTED TO LOWER THE LIGHT IN THE ROOM, DIMMED LIGHT PER REQUEST. NO SIGNS OF DISTRESS NOTED. SAFETY MEASURES IN PLACE. BED IN LOW POSITION AND CALL LIGHT WITHIN REACH. FALL RISK PROTOCOL IN PLACE AND BED ALARM ACTIVATED.
[2019-03-28 20:00] VITALS: BP 130/67
--- NOTE | 2019-03-28 20:37 | NUR ---
FOUND PT OFF NASAL CANNULA. APPLIED NASAL CANNULA AND CHECKED SPO2, SPO2 WENT BACK ON 94%. PT IS RESTING ON BED AT THIS TIME. DENIED SOB, PAIN AND DIZZINESS. NO SIGNS OF DISTRESS NOTED. TELE MONITOR ATTACHED. SAFETY MEASURES IN PLACE. BED ALARM ACTIVATED.
[2019-03-28] MEDS: ATORVASTATIN 80 MG TAB PO SCH (21:26)
[2019-03-28] MEDS: INSULIN LANTUS 100 UNITS/ML 10 ML VIAL SUBQ SCH (21:28)
[2019-03-28] MEDS: MELATONIN 3 MG TAB PO SCH (21:30)
--- NOTE | 2019-03-28 21:32 | NUR ---
CHECKED BLOOD GLUCOSE PRIOR TO MEDS ADMINISTRATION, 1ST TIME RECEIVED 466, RECHECKED 2ND TIME RECEIVED 466. NOTIFIED DR GHOSH AND DR GHOSH CAME TO PT'S ROOM. PER DR GHOSH, ADMINISTERED PT'S SCHEDULE LANTUS 50 UNIT AND HUMALOG 5 UNITS, RECHECK BLOOD GLUCOSE IN 2 HOURS, REPEATED AND CONFIRMED ORDER WITH DR GHOSH. ADMINISTERED SCHEDULED MEDS PER MD ORDER, MED EDUCATION PROVIDED TO PT. PT TOLERATED MEDS WELL. NURSE ESTHETICIAN CHANGING PT AT THIS TIME. NO SIGNS OF DISTRESS NOTED. TELE MONITOR ATTACHED. SAFETY MEASURES IN PLACE. BED IN LOW POSITION AND CALL LIGHT WITHIN REACH.
--- NOTE | 2019-03-28 21:45 | NUR ---
ATTENDED TO BED ALARM, PT ATTEMPTED TO GET OUT OF BED AND DANGLING HER LEGS ON EDGE OF BED. WITH ANOTHER NURSE, ASSISTED PT TO GET BACK ON BED AND POSITIONED COMFORTABLY. EDUCATED PT NOT TO GET OUT OF BED DUE TO HER UNSTEADY GAIT AND FOR HER SAFETY. PT SAID " I WANNA DRINK SOME COKE." EXPLAINED TO PT THAT HER GLUCOSE IS HIGH AND NEED TO BE MONITOR AND RECHECK IN 2 HOURS. PT SAID "OK." NO SIGNS OF DISTRESS NOTED. TELE MONITOR ATTACHED. SAFETY MEASURES IN PLACE. BED IN LOW POSITION AND CALL LIGHT WITHIN REACH. BED ALARM ACTIVATED.
--- NOTE | 2019-03-28 22:03 | NUR ---
PT ALTERED AND CONFUSED AND LEGS OFF THE BED. PATIENT REFUSED CPAP . WILL CONT TO MONITOR
--- NOTE | 2019-03-28 22:26 | NUR ---
PT REFUSED TO LAY ON BED AND PREFERRED TO LAY ON EDGE OF BED WITH PILLOW ON THE SIDE. NO SIGNS OF DISTRESS NOTED. TELE MONITOR ATTACHED.
--- NOTE | 2019-03-28 23:00 | NUR ---
RECHECKED BLOOD GLUCOSE AND RECEIVED 403. NOTIFIED DR GHOSH. PER DR GHOSH, ADMINISTER 10 UNITS HUMALOG AND RECHECK BLOOD GLUCOSE IN 2 HOURS. REPEATED AND CONFIRMED ORDER WITH DR GHOSH. WILL ADMINISTER ACCORDINGLY.
--- NOTE | 2019-03-28 23:05 | NUR ---
ADMINISTERED 10 UNITS HUMALOG MD ORDER SUBQ, PT TOLERATED WELL. PT IS LAYING ON EDGE OF BED WITH LEGS DANGLING. PT REFUSED TO LAY ON BED. SPO2 AT 92% WITH 2LPM VIA NC. NO SIGNS OF DISTRESS NOTED. TELE MONITOR ATTACHED. SAFETY MEASURES IN PLACE.
--- NOTE | 2019-03-28 23:22 | NUR ---
ENDORSED PT AT BEDSIDE TO CHARGE NURSE TONY FOR CONTINUITY OF CARE. TONY WAS AWARE THAT PT'S BLOOD GLUCOSE WAS 403 AND 10 UNIT HUMALOG WAS GIVEN AND BLOOD GLUCOSE RECHECK NEEDED. WITH ASSIST, MOVED PT BACK ON BED AND POSITIONED COMFORTABLY. PT IS RESTING ON BED AND AROUSABLE TO VICE. RESPIRATION EVEN AND UNLABORED ON 2LPM VIA NC, SPO2 AT 94%. NO SIGNS OF DISTRESS NOTED. TELE MONITOR ATTACHED. SAFETY MEASURES IN PLACE. BED IN LOW POSITION AND CALL LIGHT WITHIN REACH. BED ALARM ACTIVATED.
--- NOTE | 2019-03-28 23:25 | NUR ---
RECEIVED PT FROM RICK RN PT AAOX1 FOLLOW COMMANDS ON TELEMETRY SR BBB IV ONRT HANDINFUSING WELL TKO 10 ML/H ON O2 2 LTS VIA NC PT REFUSED BIPAPAT THIS TIME, REPOSITIONED ALARM ON INITIAL ASSESSMENT DONE
[2019-03-29 00:08] VITALS: BP 125/89
[2019-03-29] MEDS: PIPERACILLIN/TAZOBACTAM 3.375 GM in DEXTROSE 5% 50 ML IV SCH ×5 (00:20→23:25)
--- NOTE | 2019-03-29 01:00 | NUR ---
PT REPOSITIONED NOT DISTRESS NOTED ON TELEMETRY SR BBB ON CONTINUE MO;;NITORING
[2019-03-29 04:00] VITALS: BP 90/65
--- NOTE | 2019-03-29 04:00 | NUR ---
SPONGE BATH GIVEN LINEN CHANGED ON TELE SR BBB REPOSITIONED NOT DISTRESS NOTED IV ON RT HAND INFUSING WELL
[2019-03-29] MEDS: methylPREDNISolone SS 125 MG/2 ML VIAL IVP SCH ×2 (04:37→13:26)
[2019-03-29] MEDS: NACL 0.9% 1,000 ML IV SCH (05:00)
[2019-03-29] MEDS: BLOOD GLUCOSE MONITORING 1 DEV DEV FS SCH ×4 (06:33→21:11)
[2019-03-29] MEDS: INSULIN LISPRO SLIDING SCALE 100 UNITS/ML VIAL SUBQ PRN ×4 (06:36→21:16)
--- NOTE | 2019-03-29 06:39 | NUR ---
BLOOD SUGAR TEST 225 COVERAGE WITH 4 UNITS HUMALOG SUBQ FOLLOW PROTOCOL
--- NOTE | 2019-03-29 06:40 | NUR ---
PT WILL BE ENDORSED TO DAY SHIFT FOR CONTINUE OF CARE
--- NOTE | 2019-03-29 07:10 | NUR ---
PATIENT IS AAOX2 TO NAME AND PLACE. RESPIRATION EVEN AND UNLABORED, ON 2LPM VIA NC. DENIED PAIN, SOB, AND DIZZINESS AT THIS TIME. NO SIGNS OF DISTRESS NOTED. VISIBLE CHEST RISE NOTED. ON TELE MONITORING. IV ON R HAND 20G, WARP AROUND WITH KELEX, CLEAN AND INTACT, INFUSING NS TKO. SKIN CLEAN AND DRY. PT IS INCONTINENT AND BEDREST DUE TO WEAK GAIT. ORIENTED PT TO THE ROOM, AND DEMONSTRATED TO PT ON HOW TO USE THE CALL LIGHT, LIGHT, TV, BED REMOTE, AND TELEPHONE. REINFORCEMENT NEEDED DUE TO PT'S MENTAL STATUS AT THIS TIME. WILL CONTINUE TO MONITOR
[2019-03-29 07:12] LABS: BASOPHILS % (AUTO) 0.3 % (0.0-2.0); HEMATOCRIT 33.9 % (36-48); HEMOGLOBIN 10.5 g/dL (12.0-16.0); LYMPHOCYTES # (AUTO) 0.4 K/uL (2.5-16.5); LYMPHOCYTES % (AUTO) 7.5 % (20.5-51.1); MEAN CORPUSCULAR HEMOGLOBIN 25 pg (27-31); MEAN CORPUSCULAR HGB CONC 31 g/dL (33-37); MEAN CORPUSCULAR VOLUME 79.7 fL (80-94); MONOCYTES # (AUTO) 0.4 K/uL (0.8-1.0); MONOCYTES % (AUTO) 6.7 % (1.7-9.3); NEUTROPHILS # (AUTO) 4.6 K/uL (1.8-7.7); NEUTROPHILS % (AUTO) 85.5 % (42.2-75.2); PLATELET COUNT (AUTO) 151 K/uL (140-450); RED BLOOD CELL COUNT(AUTO) 4.25 MIL/uL (4.20-5.40); RED CELL DISTRIBUTION WIDTH 17.1 % (11.6-13.7); WHITE BLOOD COUNT (AUTO) 5.4 K/uL (4.8-10.8)
[2019-03-29 07:26] LABS: ANION GAP 14.5 (8-16); CARBON DIOXIDE 28.2 mmol/L (21-32); CREATININE 2.3 mg/dL (0.6-1.3); MAGNESIUM 2.5 mg/dL (1.8-2.4); PHOSPHORUS 4.8 mg/dL (2.5-4.9); POTASSIUM 4.7 mmol/L (3.5-5.1)
--- NOTE | 2019-03-29 07:43 | NUR ---
PATIENT IS GETTING BREATHING TX AT THIS TIME.
[2019-03-29] MEDS: ALBUTEROL SULFATE/IPRATROPIU 3 ML SOL IH SCH ×3 (07:44→19:29)
[2019-03-29 08:00] VITALS: BP 121/55
[2019-03-29 08:14] LABS: FOLIC ACID 17.7 ng/mL (>3.0)
--- NOTE | 2019-03-29 08:19 | NUR ---
DR. JAIME AND THE RESIDENT DOCTORS MADE ROUNDS
[2019-03-29] MEDS: CHOLECALCIFEROL 1,000 IU TAB PO SCH (09:35)
[2019-03-29] MEDS: FERROUS SULFATE 325 MG TABEC PO SCH (09:35)
[2019-03-29] MEDS: ASPIRIN 81 MG TAB.CHEW PO SCH (09:35)
[2019-03-29] MEDS: ASCORBIC ACID 500 MG TAB PO SCH (09:35)
[2019-03-29] MEDS: LACTOBACILLUS RHAMNOSUS GG 1 EACH CAP PO SCH (09:35)
[2019-03-29] MEDS: FUROSEMIDE 40 MG TAB PO SCH (09:36)
[2019-03-29] MEDS: DOCUSATE SODIUM 100 MG GELCAP PO SCH ×2 (09:36→20:48)
[2019-03-29] MEDS: ESCITALOPRAM 20 MG TAB PO SCH (09:36)
[2019-03-29] MEDS: CALCITRIOL 0.25 MCG CAPLF PO SCH (09:37)
[2019-03-29] MEDS: ALLOPURINOL 100 MG TAB PO SCH (09:37)
[2019-03-29] MEDS: FAMOTIDINE 20 MG TAB PO SCH (09:37)
[2019-03-29] MEDS: traMADol 50 MG TAB PO SCH ×2 (09:37→20:48)
[2019-03-29] MEDS: CARVEDILOL 12.5 MG TAB PO SCH ×2 (09:37→18:02)
--- NOTE | 2019-03-29 09:37 | NUR ---
GIVEN MORNING MEDICATIONS PO. EXPLAINED TO PATIENT MEDICATIONS. PATIENT VERBALIZED UNDERSTANDING. BED IN LOW POSITION. CALL LIGHT IS WITHIN REACH. WILL CONTINUE TO MONITOR
[2019-03-29] MEDS: QUEtiapine FUMARATE 25 MG TAB PO SCH (09:38)
--- NOTE | 2019-03-29 11:38 | NUR ---
VITAL SIGNS TAKEN. BLOOD GLUCOSE CHECK: 459. DR. LEONARD IS AWARE. WILL GIVE 12 UNITS OF INSULIN
[2019-03-29 12:00] VITALS: BP 134/48
--- NOTE | 2019-03-29 12:00 | NUR ---
INFLUENZA SWAB COLLECTED
--- NOTE | 2019-03-29 12:10 | NUR ---
HANG ZOSYN VIA IVPB. EXPLAINED TO PATIENT ANTIBIOTIC. BED IN LOW POSITION. CALL LIGHT IS WITHIN REACH. WILL CONTINUE TO MONITOR
--- NOTE | 2019-03-29 12:48 | NUR ---
GIVEN 12 UNITS OF INSULIN FOR BLOOD GLUCOSE 459 IN THE RIGHT UPPER ARM. EXPLAINED TO PATIENT MED. PATIENT VERBALIZED UNDERSTANDING
--- NOTE | 2019-03-29 13:26 | NUR ---
GIVEN SOLU-MEDROL VIA IVP. EXPLAINED TO PATIENT MED. PATIENT VERBALIZED UNDERSTANDING. WILL CONTINUE TO MONITOR
--- NOTE | 2019-03-29 13:42 | NUR ---
PATIENT IS GETTING BREATHING TX AT THIS TIME.
--- NOTE | 2019-03-29 13:54 | NUR ---
FOUND PATIENT ON 3L/M VIA NASAL CANNULA. LEFT ON 2L/M POST HHN, SPO2 MAINTAINED AT 96.
--- NOTE | 2019-03-29 14:55 | NUR ---
PATIENT IS AWAKE, LAYING IN BED. NO SIGNS OF DISTRESS NOTED. WILL CONTINUE TO MONITOR
[2019-03-29 16:00] VITALS: BP 143/72
--- NOTE | 2019-03-29 16:26 | NUR ---
BLOOD GLUCOSE CHECK: 519. DR. PANTOJA IS AWARE. WILL GIVE INSULIN BEFORE DINNER
--- NOTE | 2019-03-29 18:03 | NUR ---
GIVEN ZOSYN VIA IVPB, COREG PO, AND INSULIN 12 UNITS FOR BLOOD GLUCOSE 519. EXPLAINED TO PATIENT MEDS. PATIENT VERBALIZED UNDERSTANDING. WILL CONTINUE TO MONITOR.
--- NOTE | 2019-03-29 19:20 | NUR ---
ENDORSED PATIENT TO NURSE PRN NURSE FOR CONTINUITY OF CARE. PATIENT IS IN STABLE CONDITION
--- NOTE | 2019-03-29 19:30 | NUR ---
RECEIVED BEDSIDE REPORT FROM AM SHIFT RN FOR PT'S CONTINUITY OF CARE. PT IS AAOX2, AWARE OF THE ENVIRONMENT AND NAME/BDAY, IS ON MOVABLE BULKHEAD INSTALLER, ON 2L O2 VIA NC, HAS RIGHT HAND 22G WITH NS AT 10ML/HR, DENIES ANY PAIN AT THIS TIME. EXPLAINED TO PT THE TOUR DRIVER ROUTINE, PT VERBALIZED UNDERSTANDING. SAFETY MEASURES IN PLACE. STD ISOLATION, CALL LIGHT IS WITHIN REACH. WILL MONITOR PT THROUGHOUT SHIFT.
[2019-03-29 20:00] VITALS: BP 146/71
[2019-03-29] MEDS: ATORVASTATIN 80 MG TAB PO SCH (20:48)
[2019-03-29] MEDS: methylPREDNISolone SS 40 MG/ML VIAL IVP SCH (20:48)
[2019-03-29] MEDS: MELATONIN 3 MG TAB PO SCH (20:49)
--- NOTE | 2019-03-29 21:00 | NUR ---
ADMINISTERED SCHEDULED MEDICATIONS ORDERED. PT SWALLOWED PO MEDICATIONS WITHOUT DIFFICULTIES. PT TEACHING GIVEN. PT VERBALIZED UNDERSTANDING. WILL CONTINUE TO MONITOR PT.
[2019-03-29] MEDS: INSULIN LANTUS 100 UNITS/ML 10 ML VIAL SUBQ SCH (21:16)
--- NOTE | 2019-03-29 23:25 | NUR ---
ADMINISTERED SCHEDULED IV ABX ORDERED. PT ON BIPAP, PT REMOVED BIPAP, REPOSITIONED, REATTACHED, AND REORIENTED PT TO BIPAP. PT VERBALIZED UNDERSTANDING. MADE PT COMFORTABLE. WILL CONTINUE OT MONITOR PT.
[2019-03-30] VITALS: BP 134/54
--- NOTE | 2019-03-30 00:30 | NUR ---
VS CHECKED AND CHARTED. PT KEPT ON MOVING TO HER LEFT SIDE, IV DISPLACED, DC RIGHT HAND IV. WILL REINSERT NEW IV.
--- NOTE | 2019-03-30 01:35 | NUR ---
NEW IV SITE: RIGHT FA 22G. HAD TO ASK FOR HELP TO HOLD PT, KEEPS ON MOVING AND PULLING ARM AWAY.
[2019-03-30 04:00] VITALS: BP 137/80
--- NOTE | 2019-03-30 04:00 | NUR ---
VS CHECKED AND CHARTED. CHANGED PT, 1 BM. PT TOLERATED ACTIVITY WELL. PT STILL ON CPAP, PT STILL KEEPS ON TAKING IT OFF. REORIENTED PT TO THE ENVIRONMENT. MADE PT COMFORTABLE. WILL CONTINUE TO MONITOR PT.
[2019-03-30] MEDS: NACL 0.9% 1,000 ML IV SCH ×3 (05:00→21:05)
--- NOTE | 2019-03-30 05:13 | NUR ---
REMOVED PT FROM CPAP AND PLACED ON 2L NC WITH SPO2 OF 95%. NO RESPIRATORY DISTRESS NOTED AT THIS TIME. WILL CONTINUE TO MONITOR PT.
[2019-03-30] MEDS: methylPREDNISolone SS 40 MG/ML VIAL IVP SCH ×2 (05:41→13:17)
[2019-03-30] MEDS: PIPERACILLIN/TAZOBACTAM 3.375 GM in DEXTROSE 5% 50 ML IV SCH ×4 (05:42→23:51)
[2019-03-30] MEDS: INSULIN LISPRO SLIDING SCALE 100 UNITS/ML VIAL SUBQ PRN ×5 (05:50→21:02)
--- NOTE | 2019-03-30 05:50 | NUR ---
BLOOD GLUCOSE CHECKED AND CHARTED. INSULIN ADMINISTERED PER PROTOCOL. LAB PERSONNEL AT BEDSIDE. ADMINISTERED SCHEDULED MEDICATIONS ORDERED. PT TOLERATED THEM WELL. PT IN STABLE CONDITION, BACK ON 2L O2 VIA NC. WILL ENDORSE TO AM SHIFT RN FOR PT'S CONTINUITY OF CARE.
[2019-03-30 06:57] LABS: BASOPHILS % (AUTO) 0.1 % (0.0-2.0); HEMATOCRIT 33.6 % (36-48); HEMOGLOBIN 10.4 g/dL (12.0-16.0); LYMPHOCYTES # (AUTO) 0.5 K/uL (2.5-16.5); LYMPHOCYTES % (AUTO) 6.6 % (20.5-51.1); MEAN CORPUSCULAR HEMOGLOBIN 25 pg (27-31); MEAN CORPUSCULAR HGB CONC 31 g/dL (33-37); MEAN CORPUSCULAR VOLUME 79.7 fL (80-94); MONOCYTES # (AUTO) 0.7 K/uL (0.8-1.0); MONOCYTES % (AUTO) 8.5 % (1.7-9.3); NEUTROPHILS # (AUTO) 6.8 K/uL (1.8-7.7); NEUTROPHILS % (AUTO) 84.8 % (42.2-75.2); PLATELET COUNT (AUTO) 147 K/uL (140-450); RED BLOOD CELL COUNT(AUTO) 4.22 MIL/uL (4.20-5.40); RED CELL DISTRIBUTION WIDTH 17.1 % (11.6-13.7)
[2019-03-30] MEDS: ALBUTEROL SULFATE/IPRATROPIU 3 ML SOL IH SCH ×3 (07:15→19:23)
[2019-03-30 07:28] LABS: ANION GAP 14.2 (8-16); CARBON DIOXIDE 27.3 mmol/L (21-32); POTASSIUM 4.5 mmol/L (3.5-5.1)
[2019-03-30 07:29] LABS: MAGNESIUM 2.6 mg/dL (1.8-2.4); PHOSPHORUS 5.4 mg/dL (2.5-4.9)
--- NOTE | 2019-03-30 07:30 | NUR ---
RECEIVED REPORT FROM PM SHIFT RN. PT SLEEPING BUT AROUSABLE. AWAKE BUT CONFUSED SOMETIMES. ON O2 NC 2L/MIN. PT HAS IV TO LEFT FA # 22 RUNNING NS AT 40 CC/HR. ABD SOFT, LARGE, NONTENDER. ABLE TO MOVE ALL HER EXTREMITIES. POC EXPLAINED . PT HAS COUGH SOMETIMES. WILL CONTINUE TO MONITOR.
--- NOTE | 2019-03-30 07:35 | NUR ---
PT'S BED ALARM IS ON. EDUCATED PT REGARDING SAFETY.
[2019-03-30] MEDS: BLOOD GLUCOSE MONITORING 1 DEV DEV FS SCH ×4 (07:55→21:18)
[2019-03-30 08:00] VITALS: BP 135/76
[2019-03-30] MEDS: LACTOBACILLUS RHAMNOSUS GG 1 EACH CAP PO SCH (09:03)
[2019-03-30] MEDS: CHOLECALCIFEROL 1,000 IU TAB PO SCH (09:03)
[2019-03-30] MEDS: ESCITALOPRAM 20 MG TAB PO SCH (09:03)
[2019-03-30] MEDS: ASCORBIC ACID 500 MG TAB PO SCH (09:05)
[2019-03-30] MEDS: traMADol 50 MG TAB PO SCH ×2 (09:06→20:55)
[2019-03-30] MEDS: CALCITRIOL 0.25 MCG CAPLF PO SCH (09:06)
[2019-03-30] MEDS: ASPIRIN 81 MG TAB.CHEW PO SCH (09:06)
[2019-03-30] MEDS: CARVEDILOL 12.5 MG TAB PO SCH ×2 (09:06→18:04)
[2019-03-30] MEDS: FERROUS SULFATE 325 MG TABEC PO SCH (09:07)
[2019-03-30] MEDS: DOCUSATE SODIUM 100 MG GELCAP PO SCH ×2 (09:07→20:54)
[2019-03-30] MEDS: FUROSEMIDE 40 MG TAB PO SCH (09:07)
[2019-03-30] MEDS: FAMOTIDINE 20 MG TAB PO SCH (09:07)
[2019-03-30] MEDS: QUEtiapine FUMARATE 25 MG TAB PO SCH (09:08)
[2019-03-30] MEDS: ALLOPURINOL 100 MG TAB PO SCH (09:08)
--- NOTE | 2019-03-30 10:05 | NUR ---
SCREEN FOR LOW KARTHIKEYAN SCALE AT RISK, CONTINUE TO FOLLOW PRESSURE ULCER PREVENTION INTERVENTIONS. -TURN AND REPOSITION PATIENT Q2H, ASSIST IF NEEDED -ASSESS AND MONITOR SKIN CONDITION DURING POSITION CHANGES -OFFLOAD BILATERAL HEELS BY PLACING PILLOWS UNDER CALVES AT ALL TIMES, UNLESS OTHERWISE CONTRAINDICATED -PRESSURE REDISTRIBUTION BY PLACING PILLOWS AND OFFLOADING SACRALCOCCYX -KEEP SKIN CLEAN AND DRY AT ALL TIMES.
--- NOTE | 2019-03-30 11:07 | NUR ---
GAVE PT BEDPAN, CALLED FLOORING GRADER .
--- NOTE | 2019-03-30 11:15 | NUR ---
REMOVED BEDPAN, PT DID NOT HAVE ANY URINE OR BM AT THIS TIME. HELP PT TO STAY COMFORTABLE IN BED. PT WAS ASKING HER WHEELCHAIR, EXPLAINED TO PT WE DO NOT HAVE HER WHEELCHAIR HERE.
[2019-03-30 12:00] VITALS: BP 122/45
[2019-03-30] MEDS: MUPIROCIN CA NASAL 2% 1GM TUBE NS SCH ×2 (12:00→13:31)
[2019-03-30] MEDS: CHLORHEXADINE GLUC 2% CLOTH TP SCH (12:00)
--- NOTE | 2019-03-30 12:40 | NUR ---
IV MACHINE WAS BEEPING , SHOWING PRESSURE HIGH, UNABLE TO FLUSH IV. REINSERTED NEW IV TO LEFT HAND # 24.
--- NOTE | 2019-03-30 13:41 | NUR ---
NOTIFIED DR. PANTOJA PT REFUSED BACTROBAN . EXPLAINED TO PT THE BENEFITS OF BACTROBAN, PT STATED SHE HAS RIGHT TO REFUSE.
--- NOTE | 2019-03-30 15:26 | NUR ---
GAVE PT BEDPAN, NOTIFIED [employer] OP.
[2019-03-30] MEDS ORDERED: CALCIUM ACETATE 667 MG TAB PO SCH (15:35)
--- NOTE | 2019-03-30 15:40 | NUR ---
MARINE EQUIPMENT DESIGN ENGINEER AT BEDSIDE TO CLEAN PT.
[2019-03-30 16:00] VITALS: BP 109/59
--- NOTE | 2019-03-30 18:00 | NUR ---
PT IV TO LEFT HAND # 22 PULLED OUT WHILE PT WAS TRYING TO GET OUT BED, WILL REINSERT NEW ONE.
--- NOTE | 2019-03-30 18:45 | NUR ---
INSERT IV TO RIGHT HAND # 22.
--- NOTE | 2019-03-30 19:05 | NUR ---
ENDORSED PT TO PM SHIFT RN. PT VITALS STABLE.
--- NOTE | 2019-03-30 19:30 | NUR ---
RECEIVED BEDSIDE REPORT FROM AM SHIFT RN FOR PT'S CONTINUITY OF CARE. PT IS AAOX1, IS ON BINDERY TECHNICIAN, ON 2L O2 VIA NC, DENIES PAIN AT THIS TIME. EXPLAINED TO PT THE ADVERTISING VICE PRESIDENT ROUTINE, PT VERBALIZED UNDERSTANDING, BUT NEEDED TO BE REMINDED 2X. SAFETY PRECAUTIONS IN PLACE, AND CALL LIGHT IS WITHIN REACH. WILL MONITOR PT THROUGHOUT SHIFT.
[2019-03-30 20:00] VITALS: BP 108/57
[2019-03-30] MEDS: ATORVASTATIN 80 MG TAB PO SCH (20:55)
[2019-03-30] MEDS: MELATONIN 3 MG TAB PO SCH (20:55)
--- NOTE | 2019-03-30 20:55 | NUR ---
BLOOD GLUCOSE CHECKED AND CHARTED. ADMINISTERED SCHEDULED PO AND SUBQ MEDICATIONS ORDERED. PT TOLERATED THEM WELL. PT TEACHING GIVEN, NEEDED REINFORCEMENT, PT UNABLE TO COMPREHEND.
[2019-03-30] MEDS: INSULIN LANTUS 100 UNITS/ML 10 ML VIAL SUBQ SCH (21:01)
--- NOTE | 2019-03-30 23:45 | NUR ---
ADMINISTERED SCHEDULED IV ABX ORDERED. CHANGED PT'S LINEN, PT HAD 1 SMALL SOLID BM. REPOSITIONED AND MADE COMFORTABLE. PT DENIES ANY PAIN AT THIS TIME. WILL CONTINUE TO MONITOR PT.
--- NOTE | 2019-03-31 02:15 | NUR ---
MADE ROUNDS. PT LYING DOWN ASLEEP WITH NO SIGNS OF DISTRESS. WILL CONTINUE TO MONITOR PT.
--- NOTE | 2019-03-31 03:30 | NUR ---
PT AWAKE, LEANING OVER THE LEFT RAILING OF THE BED. REORIENTED PT, VERBALIZED UNDERSTANDING AND COOPERATED. WILL CONTINUE TO MONITOR PT.
[2019-03-31 04:00] VITALS: BP 126/62
--- NOTE | 2019-03-31 04:30 | NUR ---
PT CHANGED AND REPOSITIONED. PT TOLERATED IT WELL. VS CHECKED AND CHARTED. PT REQUESTED AND PROVIDED PUDDING. WILL CONTINUE TO MONITOR PT.
[2019-03-31] MEDS: PIPERACILLIN/TAZOBACTAM 3.375 GM in DEXTROSE 5% 50 ML IV SCH ×3 (05:06→18:11)
[2019-03-31] MEDS: BLOOD GLUCOSE MONITORING 1 DEV DEV FS SCH ×4 (06:15→21:11)
--- NOTE | 2019-03-31 06:15 | NUR ---
BLOOD GLUCOSE CHECKED AND CHARTED. ADMINISTERED INSULIN PER SS PROTOCOL. IV SITE REINFORCED. PT COUGHING INTERMITTENTLY, NON-PRODUCTIVE COUGH, NOTED SOME WHEEZING. PT DENIES ANY PAIN. PER PT, SHE'S JUST WAITING FOR BREAKFAST. WILL ENDORSE TO AM SHIFT RN FOR PT'S CONTINUITY OF CARE.
[2019-03-31] MEDS: INSULIN LISPRO SLIDING SCALE 100 UNITS/ML VIAL SUBQ PRN (06:21)
--- NOTE | 2019-03-31 07:20 | NUR ---
RECEIVED BEDSIDE REPORT FROM FASHION STYLING INTERN NURSE. PATIENT IS AWAKE, ALERT AND ORIENTEDX1. NO SIGNS OF DISTRESS ON 2L NC. SKIN IS INTACT. IV ON R HAND 22G INFUSING NS AT 100. CLEAN, DRY AND INTACT. WEAK, FALL RISK PROTOCOL IN PLACE. TELE MONITOR. INCONTINENT. BED IN LOW POSITION. CALL LIGHT WITHIN REACH. MRSA NARES POSITIVE, CONTACT.
[2019-03-31] MEDS: ALBUTEROL SULFATE/IPRATROPIU 3 ML SOL IH SCH ×3 (07:51→19:17)
[2019-03-31 07:52] LABS: BASOPHILS % (AUTO) 0.2 % (0.0-2.0); EOSINOPHILS % (AUTO) 0.1 % (0.0-4.0); HEMATOCRIT 32.7 % (36-48); HEMOGLOBIN 10.2 g/dL (12.0-16.0); LYMPHOCYTES # (AUTO) 0.8 K/uL (2.5-16.5); LYMPHOCYTES % (AUTO) 13.1 % (20.5-51.1); MEAN CORPUSCULAR HEMOGLOBIN 25 pg (27-31); MEAN CORPUSCULAR HGB CONC 31 g/dL (33-37); MEAN CORPUSCULAR VOLUME 79.7 fL (80-94); MONOCYTES # (AUTO) 0.7 K/uL (0.8-1.0); MONOCYTES % (AUTO) 11.1 % (1.7-9.3); NEUTROPHILS # (AUTO) 4.7 K/uL (1.8-7.7); NEUTROPHILS % (AUTO) 75.5 % (42.2-75.2); PLATELET COUNT (AUTO) 134 K/uL (140-450); RED BLOOD CELL COUNT(AUTO) 4.11 MIL/uL (4.20-5.40); RED CELL DISTRIBUTION WIDTH 17.2 % (11.6-13.7); WHITE BLOOD COUNT (AUTO) 6.3 K/uL (4.8-10.8)
[2019-03-31 08:00] VITALS: BP 120/76
[2019-03-31 08:15] LABS: ANION GAP 12.6 (8-16); CARBON DIOXIDE 30.2 mmol/L (21-32); CREATININE 2.8 mg/dL (0.6-1.3); POTASSIUM 3.8 mmol/L (3.5-5.1)
[2019-03-31 08:17] LABS: MAGNESIUM 2.4 mg/dL (1.8-2.4); PHOSPHORUS 4.5 mg/dL (2.5-4.9)
[2019-03-31] MEDS: ESCITALOPRAM 20 MG TAB PO SCH (09:00)
[2019-03-31] MEDS: FERROUS SULFATE 325 MG TABEC PO SCH (09:00)
[2019-03-31] MEDS: ASCORBIC ACID 500 MG TAB PO SCH (09:00)
[2019-03-31] MEDS: CHOLECALCIFEROL 1,000 IU TAB PO SCH (09:00)
[2019-03-31] MEDS: CALCITRIOL 0.25 MCG CAPLF PO SCH (10:09)
[2019-03-31] MEDS: FAMOTIDINE 20 MG TAB PO SCH (10:10)
[2019-03-31] MEDS: QUEtiapine FUMARATE 25 MG TAB PO SCH (10:12)
[2019-03-31] MEDS: DOCUSATE SODIUM 100 MG GELCAP PO SCH ×2 (10:13→21:04)
[2019-03-31] MEDS: traMADol 50 MG TAB PO SCH ×2 (10:16→21:05)
[2019-03-31] MEDS: FUROSEMIDE 40 MG TAB PO SCH (10:16)
[2019-03-31] MEDS: LACTOBACILLUS RHAMNOSUS GG 1 EACH CAP PO SCH (10:17)
[2019-03-31] MEDS: CARVEDILOL 12.5 MG TAB PO SCH ×2 (10:18→18:11)
[2019-03-31] MEDS: ASPIRIN 81 MG TAB.CHEW PO SCH (10:19)
[2019-03-31] MEDS: ALLOPURINOL 100 MG TAB PO SCH (10:19)
--- NOTE | 2019-03-31 10:25 | NUR ---
ADMINISTERED MEDS. PATIENT REFUSED SOME MEDS. EDUCATED ON RISKS AND SIDE EFFECTS. WILL CONTINUE TO MONITOR THE PATIENT.
[2019-03-31 12:00] VITALS: BP 132/63
[2019-03-31] MEDS: MUPIROCIN CA NASAL 2% 1GM TUBE NS SCH (12:14)
[2019-03-31] MEDS: CHLORHEXADINE GLUC 2% CLOTH TP SCH (12:15)
--- NOTE | 2019-03-31 12:15 | NUR ---
ADMINISTERED MEDS. PATIENT TOLERATED WELL. EDUCATED ON SIDE EFFECTS. WILL CONTINUE TO MONITOR THE PATIENT
--- NOTE | 2019-03-31 14:20 | NUR ---
PATIENT RESTING IN BED. NO SIGNS OF DISTRESS. WILL CONTINUE TO MONITOR
--- NOTE | 2019-03-31 15:28 | NUR ---
CHECKED ON PATIENT. PATIENT SAYS WHO ARE YOU? I REORIENTED PATIENT AND REMINDED HER I WAS HER NURSE AND MY NAME IS ALVIN. WILL CONTINUE TO MONITOR THE PATIENT
[2019-03-31 16:00] VITALS: BP 135/60
--- NOTE | 2019-03-31 16:46 | NUR ---
03/31/19 RD INITIAL ASSESSMENT COMPLETED PLEASE REFER TO NUTRITION ASSESSMENT UNDER CARE ACTIVITY FOR ESTIMATED NUTRITIONAL NEEDS. 1. CONTINUE CCHO 60 DIET TOLERATED 2. PROVIDE EDUCATION WHEN PT IS MORE STABLE 3. RD TO FOLLOW-UP 3-5 DAYS, MODERATE RISK YUE WILSON, RD
--- NOTE | 2019-03-31 16:50 | NUR ---
PATIENT CONTINUES TO ATTEMPT TO GET OUT OF BED. PATIENT TO WEAK TO AMBULATE AT THIS TIME. REORIENT PATIENT TO STAY IN BED, SHE HAS HISTORY OF FALLS.
[2019-03-31] MEDS: NACL 0.9% 1,000 ML IV SCH (18:11)
--- NOTE | 2019-03-31 18:35 | NUR ---
STRAIGHT CATH PERFORMED. ONLY ABLE TO REMOVE ABOUT 50CC. PATIENT TOLERATED WELL. SENT TO LAB
--- NOTE | 2019-03-31 19:14 | NUR ---
GAVE BEDSIDE REPORT TO ASSOCIATE PROFESSOR OF VIOLIN NURSE. PATIENT ENDORSED IN STABLE CONDITION
--- NOTE | 2019-03-31 19:22 | NUR ---
RECEIVED PT ON 2L NC WITH SP02 OF 94% AND WHEEZING BREATH SOUNDS. NO RESPIRATORY DISTRESS NOTED AT THIS TIME; HR 74, RR 18. HHN TX GIVEN ORDERED WITH NO ADVERSE REACTION. WILL CONTINUE TO MONITOR PT.
--- NOTE | 2019-03-31 19:30 | NUR ---
RECEIVED BEDSIDE REPORT FROM AM SHIFT RN FOR PT'S CONTINUITY OF CARE. PT IS AAOX1, ON 2L O2 NC, ON PRECISION LENS POLISHER, HAS RIGHT HAND 22G WITH NS AT 20ML/HR, SKIN IS INTACT, DENIES PAIN, NOTED WHEEZING ON EXPIRATION. REORIENTED PT TO HOSPITAL ENVIRONMENT AND TREATING MACHINE OPERATOR ROUTINE, PT VERBALIZED UNDERSTANDING. SAFETY MEASURES IN PLACE, AND CALL LIGHT IS WITHIN REACH. WILL MONITOR PT THROUGHOUT SHIFT.
[2019-03-31 20:00] VITALS: BP 150/70
[2019-03-31 20:56] LABS: APPEARANCE,URINE CLEAR (CLEAR); BILIRUBIN,URINE NEGATIVE (NEGATIVE); BLOOD, URINE NEGATIVE (NEGATIVE); COLOR,URINE YELLOW (YELLOW); LEUKOCYTE ESTERASE ,URINE NEGATIVE (NEGATIVE); NITRITE, URINE NEGATIVE (NEGATIVE); PH,URINE 5.5 (5.0-9.0); UGLUCOSE NEGATIVE (NEGATIVE)
[2019-03-31] MEDS: INSULIN LANTUS 100 UNITS/ML 10 ML VIAL SUBQ SCH (21:00)
[2019-03-31] MEDS: MELATONIN 3 MG TAB PO SCH (21:04)
[2019-03-31] MEDS: ATORVASTATIN 80 MG TAB PO SCH (21:05)
--- NOTE | 2019-03-31 21:30 | NUR ---
ADMINISTERED SCHEDULED MEDICATIONS ORDERED. PT TOLERATED THEM WELL. PT'S BLOOD GLUCOSE (71) CHECKED AND CHARTED. NOTIFIED MD, HELD LANTUS PER MD, TREE TRIMMER AWARE. PT NOTED INCREASE IN WHEEZING AND RESP RATE, PT STATES SHE'S HAVING HARD TIME BREATHING, CONSULTED RT, RT INITIATED BIPAP AND BREATHING TX.
--- NOTE | 2019-03-31 21:52 | NUR ---
PT ON BIPAP AND BREATHING TX. PT MORE COMFORTABLE AND RESPIRATION UNLABORED. RT NOTIFIED RE: BIPAP ORDER. WILL CONTINUE TO MONITOR PT.
--- NOTE | 2019-03-31 22:09 | NUR ---
PLACED PT ON BiPAP FOR INCREASE WORK OF BREATHING RR 28 TO 32, HR 85, WHEEZING BREATH SOUNDS; PRN TX GIVEN. RR DECREASED TO 20-25. WILL CONTINUE TO MONITOR PT
[2019-04-01] VITALS: BP 145/94
--- NOTE | 2019-04-01 | NUR ---
VS CHECKED AND CHARTED. PT ON BIPAP, COMFORTABLY LYING DOWN, WITH NO SIGNS OF DISTRESS. ADMINISTERED SCHEDULED IV ABX ORDERED. WILL CONTINUE TO MONITOR PT.
[2019-04-01] MEDS: PIPERACILLIN/TAZOBACTAM 3.375 GM in DEXTROSE 5% 50 ML IV SCH ×3 (00:19→12:19)
[2019-04-01 04:00] VITALS: BP 132/57
--- NOTE | 2019-04-01 04:45 | NUR ---
PT WAS CHANGED AND REPOSITIONED. VS CHECKED AND CHARTED. PT STILL ON BIPAP AND SHOWS NO SIGNS OF DISTRESS. PT MADE COMFORTABLE. WILL CONTINUE TO MONITOR PT.
[2019-04-01] MEDS: BLOOD GLUCOSE MONITORING 1 DEV DEV FS SCH ×2 (05:30→11:25)
--- NOTE | 2019-04-01 06:30 | NUR ---
BLOOD GLUCOSE RE-CHECKED 138. PT STILL CONFUSED AND NEEDED TO BE REORIENTED TO ENVIRONMENT, TO SIT UP AND PERFORM BREATHING EXERCISES, AND TO NOT GET OUT OF BED. PT IS IN STABLE CONDITION OTHERWISE. WHEEZING STILL NOTED UPON EXPIRATION. WILL ENDORSE TO AM SHIFT RN FOR PT'S CONTINUITY OF CARE.
[2019-04-01] MEDS: ALBUTEROL SULFATE/IPRATROPIU 3 ML SOL IH SCH ×2 (07:12→13:29)
--- NOTE | 2019-04-01 07:15 | NUR ---
RECEIVED REPORT FROM MAGAZINE PUBLISHER NURSE FOR CONTINUATION OF CARE. PATIENT IS CURRENTLY RECEIVING A BREATHING TREATMENT WITH RT AT BEDSIDE, PATIENT HAS OBVIOUS DIFFICULTY BREATHING, SOB, AND IS IN AN ASSISTED POSITION SIMILAR TO TRIPOD POSITION. PATIENT RESPONDS TO VERBAL COMMANDS. AAOX1/2. PATIENT EDUCATED ON THE CALL LIGHT, REINFORCEMENT NEEDED. PATIENT HAS IV FLUIDS RUNNING IN HER RIGHT ARM. BED IS IN LOW POSITION, BED ALARM ON, CALL LIGHT ON AND WITHIN REACH. WILL CONTINUE TO MONITOR.
--- NOTE | 2019-04-01 07:38 | NUR ---
PER RT SUGGESTED PATIENT BE PLACED ON STEROIDS TO HELP WITH BREATHING. MD NOTIFIED.
[2019-04-01 08:00] VITALS: BP 137/59
[2019-04-01 08:09] LABS: BASOPHILS % (AUTO) 0.1 % (0.0-2.0); EOSINOPHILS % (AUTO) 0.2 % (0.0-4.0); HEMATOCRIT 33.3 % (36-48); HEMOGLOBIN 10.4 g/dL (12.0-16.0); LYMPHOCYTES # (AUTO) 0.9 K/uL (2.5-16.5); LYMPHOCYTES % (AUTO) 15.4 % (20.5-51.1); MEAN CORPUSCULAR HEMOGLOBIN 25 pg (27-31); MEAN CORPUSCULAR HGB CONC 31 g/dL (33-37); MEAN CORPUSCULAR VOLUME 79.2 fL (80-94); MONOCYTES # (AUTO) 0.8 K/uL (0.8-1.0); MONOCYTES % (AUTO) 14.8 % (1.7-9.3); NEUTROPHILS % (AUTO) 69.5 % (42.2-75.2); PLATELET COUNT (AUTO) 122 K/uL (140-450); RED CELL DISTRIBUTION WIDTH 17.4 % (11.6-13.7); WHITE BLOOD COUNT (AUTO) 5.7 K/uL (4.8-10.8)
[2019-04-01] MEDS: LACTOBACILLUS RHAMNOSUS GG 1 EACH CAP PO SCH (08:26)
[2019-04-01] MEDS: FERROUS SULFATE 325 MG TABEC PO SCH (08:33)
[2019-04-01] MEDS: CARVEDILOL 12.5 MG TAB PO SCH (08:33)
[2019-04-01] MEDS: CHOLECALCIFEROL 1,000 IU TAB PO SCH (08:33)
[2019-04-01] MEDS: CALCITRIOL 0.25 MCG CAPLF PO SCH (08:33)
[2019-04-01] MEDS: FUROSEMIDE 40 MG TAB PO SCH (08:34)
[2019-04-01] MEDS: ASCORBIC ACID 500 MG TAB PO SCH (08:34)
[2019-04-01] MEDS: FAMOTIDINE 20 MG TAB PO SCH (08:34)
[2019-04-01] MEDS: ESCITALOPRAM 20 MG TAB PO SCH (08:34)
[2019-04-01] MEDS: DOCUSATE SODIUM 100 MG GELCAP PO SCH (08:35)
[2019-04-01] MEDS: ASPIRIN 81 MG TAB.CHEW PO SCH (08:35)
[2019-04-01] MEDS: traMADol 50 MG TAB PO SCH (08:35)
[2019-04-01] MEDS: ALLOPURINOL 100 MG TAB PO SCH (08:35)
[2019-04-01] MEDS: QUEtiapine FUMARATE 25 MG TAB PO SCH (08:35)
[2019-04-01] MEDS ORDERED: methylPREDNISolone SS 40 MG/ML VIAL IVP SCH (09:00)
[2019-04-01] MEDS ORDERED: OSELTAMIVIR PHOSPHATE 30 MG CAP PO SCH (09:00)
[2019-04-01] MEDS ORDERED: OSEL30CA1 PO (09:06)
[2019-04-01] MEDS ORDERED: MUC104 INH (09:06)
[2019-04-01] MEDS ORDERED: METH4TAB3 PO (09:06)
[2019-04-01] MEDS ORDERED: LACT1.4C PO (09:06)
[2019-04-01] MEDS ORDERED: ZOS3.375I IV (09:06)
[2019-04-01 09:28] LABS: ANION GAP 15.1 (8-16); CARBON DIOXIDE 28.3 mmol/L (21-32); POTASSIUM 4.4 mmol/L (3.5-5.1)
--- NOTE | 2019-04-01 10:00 | NUR ---
Discharge Planning: JOSE faxed clinical packet to [facility] [phone]. JOSE contacted Philly from [facility] [phone] to confirm packet was received. JOSE attempted to arrange for patient to return to [facility], but Philly stated that there were no isolation beds available. JOSE informed Charge Nurse Souza. JOSE/ILIANA will follow as needed. Addendum: 04/01/[address] JOSE was contacted by esteban Courtney at [facility] [phone]. Per Roz, patient is able to return. JOSE contacted Luna from [facility] [phone] for authorization. Transportation auth: #[id number] Facility auth: #[id number] JOSE informed charge nurse Souza to assist in setting transportation. JOSE/ILIANA will follow up as needed. Addendum: 04/01/[address] at [address] JOSE contacted Philly from [facility] [phone]. Patient will be going to room 14C under attending physician Dr. Jg Mcpherson.
--- NOTE | 2019-04-01 10:00 | NUR ---
PATIENT IS AAOX1/2, RESPONDS TO VERBAL STIMULI, CONFUSED AND LOSES ATTENTION QUICK WHEN GIVEN COMMANDS. SOB NOTED, AND RHONCHI, WHEEZES AUSCULTATED ON ANTERIOR THORACIC CAVITY. DIFFICULTY BREATHING NOTED. PATIENT EDUCATED ON THE INCENTIVE SPIROMETER, REINFORCEMENT NEEDED. PATIENT TOLERATED MEDICATION ADMINISTRATION, EXPERIENCED FATIGUE. BLOOD TINGED SPUTUM NOTED, SCANT AMOUNT THICK PHLEGM. BED IS IN LOW POSITION, BED LINEN AND PATIENT GOWN CHANGED, CHG BATH PROVIDED PER MRSA NARES PROTOCOL. CALL LIGHT ON AND WITHIN REACH, WILL CONTINUE TO MONITOR.
[2019-04-01] MEDS: CHLORHEXADINE GLUC 2% CLOTH TP SCH (11:26)
[2019-04-01 12:00] VITALS: BP 139/52
[2019-04-01 12:03] LABS: MAGNESIUM 2.3 mg/dL (1.8-2.4); PHOSPHORUS 4.9 mg/dL (2.5-4.9)
[2019-04-01] MEDS: MUPIROCIN CA NASAL 2% 1GM TUBE NS SCH (12:20)
--- NOTE | 2019-04-01 12:30 | NUR ---
PATIENT IS IN BED, CONFUSED, REPEATING THE SAME PHRASE, IMPAIRED ABILITY TO FOLLOW COMMANDS, THIS HAS BEEN THE PATIENTS BASELINE TODAY. DISCHARGE PICKUP BY [facility] TODAY SCHEDULED FOR 3 PM. DISCHARGE PAPERWORK IN PROCESS OF COMPLETION, DUE TO PATIENTS MENTAL STATUS SHE IS UNABLE TO SIGN PAPERWORK. BED IS IN LOW POSITION, CALL LIGHT ON AND WITHIN REACH. WILL CONTINUE TO MONITOR.
--- NOTE | 2019-04-01 15:00 | NUR ---
DISCHARGE PAPERWORK COMPLETED, PATIENT HAS NO BELONGINGS, SON LEFT WITH PATIENT AT DISCHARGE EN ROUTE BACK TO [facility]. PERIPHERAL IV INTACT FOR USE AT [facility]. REPORT GIVEN TO ERYN DALEY. SKIN IS INTACT. REPORT GIVEN TO EMT'S WORKING WITH PRT. PATIENT SHOWED NO SIGNS OF DISTRESS. PINK GOWN AND PINK LINEN PLACED ON PATIENT FOR TRANSPORT. PATIENT WAS DISCHARGED FROM [facility].
== END 2019-04-01 15:00 | DRG 682 ==
LOC: MED 02:49 → MTU 04:54
PROVIDERS: ADMIT General Practice; ATTEND General Practice
DX: N17.0 Acute kidney failure with tubular necrosis (principal); J18.9 Pneumonia, unspecified organism; I50.43 Acute on chronic combined systolic (congestive) and diastolic (congestive) heart failure; E43 Unspecified severe protein-calorie malnutrition; J96.22 Acute and chronic respiratory failure with hypercapnia; J44.1 Chronic obstructive pulmonary disease with (acute) exacerbation; Z68.41 Body mass index [BMI] 40.0-44.9, adult; J44.0 Chronic obstructive pulmonary disease with (acute) lower respiratory infection; I13.0 Hypertensive heart and chronic kidney disease with heart failure and stage 1 through stage 4 chronic kidney disease, or unspecified chronic kidney disease; I42.9 Cardiomyopathy, unspecified; N18.4 Chronic kidney disease, stage 4 (severe); D63.8 Anemia in other chronic diseases classified elsewhere; E66.01 Morbid (severe) obesity due to excess calories; E78.5 Hyperlipidemia, unspecified; F32.9 Major depressive disorder, single episode, unspecified; G47.33 Obstructive sleep apnea (adult) (pediatric); K21.9 Gastro-esophageal reflux disease without esophagitis; M10.9 Gout, unspecified; G40.909 Epilepsy, unspecified, not intractable, without status epilepticus; Z96.659 Presence of unspecified artificial knee joint; F41.8 Other specified anxiety disorders; G47.00 Insomnia, unspecified; E86.0 Dehydration; E11.22 Type 2 diabetes mellitus with diabetic chronic kidney disease; Z86.73 Personal history of transient ischemic attack (TIA), and cerebral infarction without residual deficits; Z95.0 Presence of cardiac pacemaker; Z88.8 Allergy status to other drugs, medicaments and biological substances; Z88.1 Allergy status to other antibiotic agents; Z91.010 Allergy to peanuts; Z79.4 Long term (current) use of insulin; Z79.899 Other long term (current) drug therapy
CPT/HCPCS: 36415; 36600; 71045; 80048; 80053; 81003; 82607; 82728; 82746; 82803; 82948; 83036; 83540; 83605; 83735; 83880; 84100; 84134; 84300; 84443; 85025; 85045; 85610; 85730; 87040; 87081; 87804; 94640; 96365; 96375; 97112; 97161-GP; 99285; C1758; J1644; J1815; J2185; J2543; J2920; J2930; J3475; J7030; J7060; J7620; Q0092